=== PATIENT | female | born 1940 | race Caucasian/White ===

== ENCOUNTER 2017-12-10 19:52 | Inpatient (IN) | payer MEDICARE ==
[2017-12-10] MEDS ORDERED: SODIUM CHLORIDE 0.9% 1,000 ML IV STA (20:02)
[2017-12-10] MEDS ORDERED: IPRATROPIUM-ALBUTEROL 3 ML NEB INHALATION STA (20:02)
[2017-12-10] MEDS ORDERED: LORazepam 2 MG/ML INJ IV STA (20:02)
--- NOTE | 2017-12-10 20:07 | ED ---
General Adult HPI - General Chief complaint: Shortness of Breath Stated complaint: SOB Time Seen by Provider: 12/10/17 19:58 Source: patient, family, EMS, RN notes reviewed, old records reviewed Mode of arrival: EMS Limitations: no limitations - History of Present Illness Initial comments: This is a 76-year-old female the ER for evaluation poor historian and history is obtained from caregiver, patient has a complex recent medical history clear multiple hospitalizations for everything from pneumonia alcohol withdrawal. Patient having persistent significant shortness of breath per family and therefore 18 brought in for evaluation, she has no history of pleural effusion with no treatment at this time - Related Data Home Medications Medication Instructions Recorded Confirmed Azithromycin [Zithromax Z-pack] See Taper PO DAILY 12/11/17 12/11/17 Fludrocortisone [Florinef] 0.1 mg PO DAILY 12/11/17 12/11/17 Furosemide [Lasix] 20 mg PO DAILY 12/11/17 12/11/17 Ipratropium-Albuterol Nebulize 3 ml INHALATION RT-QID PRN 12/11/17 12/11/17 [Duoneb 0.5 mg-3 mg/3 ml Soln] Levothyroxine Sodium [Synthroid] 88 mcg PO DAILY 12/11/17 12/11/17 Magnesium Oxide [Mag-Ox] 400 mg PO DAILY 12/11/17 12/11/17 Metoprolol Succinate [Toprol Xl] 50 mg PO DAILY 12/11/17 12/11/17 Pantoprazole [Protonix] 40 mg PO DAILY 12/11/17 12/11/17 Potassium Chloride [K-Tab ER] 10 meq PO DAILY 12/11/17 12/11/17 Allergies Allergy/AdvReac Type Severity Reaction Status Date / Time No Known Allergies Allergy Verified 12/11/17 11:31 Review of Systems ROS Statement: Those systems with pertinent positive or pertinent negative responses have been documented in the HPI. ROS Other: All systems not noted in ROS Statement are negative. Past Medical History Past Medical History: Thyroid Disorder Additional Past Medical History / Comment(s): gastric ulcer, anxiety History of Any Multi-Drug Resistant Organisms: None Reported Past Surgical History: Tonsillectomy, Tubal Ligation Past Psychological History: Anxiety, Depression Smoking Status: Former smoker Past Alcohol Use History: Occasional Past Drug Use History: None Reported - Past Family History Sister(s) Family Medical History: Thyroid Disorder General Exam Limitations: no limitations Course Vital Signs 12/10/17 12/10/17 12/10/17 19:53 20:02 20:22 Temperature 98.3 F Pulse Rate 83 86 Pulse Rate [ Right Pulse Oximetery] Respiratory 22 22 Rate Blood Pressure 146/68 Blood Pressure [Right Arm Supine] O2 Sat by Pulse 92 L Oximetry 12/10/17 12/10/17 12/10/17 20:34 21:39 22:00 Temperature Pulse Rate 93 67 55 L Pulse Rate [ Right Pulse Oximetery] Respiratory 18 20 Rate Blood Pressure 130/72 153/75 Blood Pressure [Right Arm Supine] O2 Sat by Pulse 97 96 Oximetry 12/10/17 12/11/17 12/11/17 23:00 00:06 00:30 Temperature 98.2 F Pulse Rate 78 67 Pulse Rate [ 86 Right Pulse Oximetery] Respiratory 18 20 21 Rate Blood Pressure 138/68 147/72 Blood Pressure 148/70 [Right Arm Supine] O2 Sat by Pulse 97 97 98 Oximetry 12/11/17 00:40 Temperature Pulse Rate Pulse Rate [ 86 Right Pulse Oximetery] Respiratory 21 Rate Blood Pressure Blood Pressure [Right Arm Supine] O2 Sat by Pulse Oximetry - Reevaluation(s) Reevaluation #1: Medical records thoroughly reviewed Patient is placed on electrolyte replacement Patient has bilateral large pleural effusion EKG Findings - EKG Comments: EKG Findings:: EKG shows sinus rhythm rate of 85, RI 144, QRS 60, QTc 497 Medical Decision Making - Medical Decision Making 76 female the ER for evaluation patient known facility, patient presenting for shortness of breath and low oxygen. Patient does have persistent difficulty breathing, is improved with breathing and will need pulmonary evaluation. Patient also significant L O'Josemanuel's and will be admitted for electronically replacement - Lab Data Result diagrams: 12/11/17 08:57 12/11/17 08:57 Lab Results 12/10/17 12/10/17 12/10/17 Range/Units 19:55 19:55 19:55 WBC 9.1 (3.8-10.6) k/uL RBC 3.06 L (3.80-5.40) m/uL Hgb 9.5 L (11.4-16.0) gm/dL Hct 30.1 L (34.0-46.0) % MCV 98.4 (80.0-100.0) fL MCH 31.0 (25.0-35.0) pg MCHC 31.5 (31.0-37.0) g/dL RDW 14.2 (11.5-15.5) % Plt Count 207 (150-450) k/uL Neutrophils % 66 % Lymphocytes % 20 % Monocytes % 9 % Eosinophils % 3 % Basophils % 0 % Neutrophils # 6.0 (1.3-7.7) k/uL Lymphocytes # 1.8 (1.0-4.8) k/uL Monocytes # 0.8 (0-1.0) k/uL Eosinophils # 0.3 (0-0.7) k/uL Basophils # 0.0 (0-0.2) k/uL Hypochromasia PT (9.0-12.0) sec INR (<1.2) APTT (22.0-30.0) sec D-Dimer (<0.60) mg/L FEU Sodium 141 (137-145) mmol/L Potassium 3.4 L (3.5-5.1) mmol/L Chloride 104 (98-107) mmol/L Carbon Dioxide 32 H (22-30) mmol/L Anion Gap 5 mmol/L BUN 14 (7-17) mg/dL Creatinine 0.61 (0.52-1.04) mg/dL Est GFR (CKD-EPI)AfAm >90 (>60 ml/min/1.73 sqM) Est GFR (CKD-EPI)NonAf 88 (>60 ml/min/1.73 sqM) Glucose 93 (74-99) mg/dL Calcium 8.7 (8.4-10.2) mg/dL Magnesium 1.1 L (1.6-2.3) mg/dL Total Bilirubin 0.5 (0.2-1.3) mg/dL AST 22 (14-36) U/L ALT 22 (9-52) U/L Alkaline Phosphatase 74 (38-126) U/L Total Creatine Kinase 31 (30-135) U/L CK-MB (CK-2) 0.9 (0.0-2.4) ng/mL CK-MB (CK-2) Rel Index 2.9 Troponin I 0.061 H* (0.000-0.034) ng/mL NT-Pro-B Natriuret Pep pg/mL Total Protein 6.1 L (6.3-8.2) g/dL Albumin 2.9 L (3.5-5.0) g/dL Triglycerides (<150) mg/dL Cholesterol (<200) mg/dL LDL Cholesterol, Calc (0-99) mg/dL HDL Cholesterol (40-60) mg/dL C. difficile (EIA) Intrp (Negative) 12/10/17 12/10/17 12/10/17 Range/Units 19:55 19:55 19:55 WBC (3.8-10.6) k/uL RBC (3.80-5.40) m/uL Hgb (11.4-16.0) gm/dL Hct (34.0-46.0) % MCV (80.0-100.0) fL MCH (25.0-35.0) pg MCHC (31.0-37.0) g/dL RDW (11.5-15.5) % Plt Count (150-450) k/uL Neutrophils % % Lymphocytes % % Monocytes % % Eosinophils % % Basophils % % Neutrophils # (1.3-7.7) k/uL Lymphocytes # (1.0-4.8) k/uL Monocytes # (0-1.0) k/uL Eosinophils # (0-0.7) k/uL Basophils # (0-0.2) k/uL Hypochromasia PT 11.5 (9.0-12.0) sec INR 1.2 H (<1.2) APTT 24.6 (22.0-30.0) sec D-Dimer 1.70 H (<0.60) mg/L FEU Sodium (137-145) mmol/L Potassium (3.5-5.1) mmol/L Chloride (98-107) mmol/L Carbon Dioxide (22-30) mmol/L Anion Gap mmol/L BUN (7-17) mg/dL Creatinine (0.52-1.04) mg/dL Est GFR (CKD-EPI)AfAm (>60 ml/min/1.73 sqM) Est GFR (CKD-EPI)NonAf (>60 ml/min/1.73 sqM) Glucose (74-99) mg/dL Calcium (8.4-10.2) mg/dL Magnesium (1.6-2.3) mg/dL Total Bilirubin (0.2-1.3) mg/dL AST (14-36) U/L ALT (9-52) U/L Alkaline Phosphatase (38-126) U/L Total Creatine Kinase (30-135) U/L CK-MB (CK-2) (0.0-2.4) ng/mL CK-MB (CK-2) Rel Index Troponin I (0.000-0.034) ng/mL NT-Pro-B Natriuret Pep 4800 pg/mL Total Protein (6.3-8.2) g/dL Albumin (3.5-5.0) g/dL Triglycerides (<150) mg/dL Cholesterol (<200) mg/dL LDL Cholesterol, Calc (0-99) mg/dL HDL Cholesterol (40-60) mg/dL C. difficile (EIA) Intrp (Negative) 12/11/17 12/11/17 12/11/17 Range/Units 01:52 08:21 08:57 WBC (3.8-10.6) k/uL RBC (3.80-5.40) m/uL Hgb (11.4-16.0) gm/dL Hct (34.0-46.0) % MCV (80.0-100.0) fL MCH (25.0-35.0) pg MCHC (31.0-37.0) g/dL RDW (11.5-15.5) % Plt Count (150-450) k/uL Neutrophils % % Lymphocytes % % Monocytes % % Eosinophils % % Basophils % % Neutrophils # (1.3-7.7) k/uL Lymphocytes # (1.0-4.8) k/uL Monocytes # (0-1.0) k/uL Eosinophils # (0-0.7) k/uL Basophils # (0-0.2) k/uL Hypochromasia PT (9.0-12.0) sec INR (<1.2) APTT (22.0-30.0) sec D-Dimer (<0.60) mg/L FEU Sodium 140 (137-145) mmol/L Potassium 4.6 (3.5-5.1) mmol/L Chloride 105 (98-107) mmol/L Carbon Dioxide 30 (22-30) mmol/L Anion Gap 5 mmol/L BUN 13 (7-17) mg/dL Creatinine 0.59 (0.52-1.04) mg/dL Est GFR (CKD-EPI)AfAm >90 (>60 ml/min/1.73 sqM) Est GFR (CKD-EPI)NonAf 89 (>60 ml/min/1.73 sqM) Glucose 87 (74-99) mg/dL Calcium 8.7 (8.4-10.2) mg/dL Magnesium (1.6-2.3) mg/dL Total Bilirubin (0.2-1.3) mg/dL AST (14-36) U/L ALT (9-52) U/L Alkaline Phosphatase (38-126) U/L Total Creatine Kinase 32 30 (30-135) U/L CK-MB (CK-2) 1.1 0.9 (0.0-2.4) ng/mL CK-MB (CK-2) Rel Index 3.4 3.0 Troponin I 0.063 H* 0.073 H* (0.000-0.034) ng/mL NT-Pro-B Natriuret Pep pg/mL Total Protein (6.3-8.2) g/dL Albumin (3.5-5.0) g/dL Triglycerides 67 (<150) mg/dL Cholesterol 148 (<200) mg/dL LDL Cholesterol, Calc 76 (0-99) mg/dL HDL Cholesterol 59 (40-60) mg/dL C. difficile (EIA) Intrp (Negative) 12/11/17 12/11/17 Range/Units 08:57 09:02 WBC 9.0 (3.8-10.6) k/uL RBC 3.04 L (3.80-5.40) m/uL Hgb 9.8 L (11.4-16.0) gm/dL Hct 30.2 L (34.0-46.0) % MCV 99.3 (80.0-100.0) fL MCH 32.2 (25.0-35.0) pg MCHC 32.4 (31.0-37.0) g/dL RDW 14.3 (11.5-15.5) % Plt Count 236 (150-450) k/uL Neutrophils % 65 % Lymphocytes % 20 % Monocytes % 10 % Eosinophils % 4 % Basophils % 0 % Neutrophils # 5.8 (1.3-7.7) k/uL Lymphocytes # 1.8 (1.0-4.8) k/uL Monocytes # 0.9 (0-1.0) k/uL Eosinophils # 0.4 (0-0.7) k/uL Basophils # 0.0 (0-0.2) k/uL Hypochromasia Slight PT (9.0-12.0) sec INR (<1.2) APTT (22.0-30.0) sec D-Dimer (<0.60) mg/L FEU Sodium (137-145) mmol/L Potassium (3.5-5.1) mmol/L Chloride (98-107) mmol/L Carbon Dioxide (22-30) mmol/L Anion Gap mmol/L BUN (7-17) mg/dL Creatinine (0.52-1.04) mg/dL Est GFR (CKD-EPI)AfAm (>60 ml/min/1.73 sqM) Est GFR (CKD-EPI)NonAf (>60 ml/min/1.73 sqM) Glucose (74-99) mg/dL Calcium (8.4-10.2) mg/dL Magnesium (1.6-2.3) mg/dL Total Bilirubin (0.2-1.3) mg/dL AST (14-36) U/L ALT (9-52) U/L Alkaline Phosphatase (38-126) U/L Total Creatine Kinase (30-135) U/L CK-MB (CK-2) (0.0-2.4) ng/mL CK-MB (CK-2) Rel Index Troponin I (0.000-0.034) ng/mL NT-Pro-B Natriuret Pep pg/mL Total Protein (6.3-8.2) g/dL Albumin (3.5-5.0) g/dL Triglycerides (<150) mg/dL Cholesterol (<200) mg/dL LDL Cholesterol, Calc (0-99) mg/dL HDL Cholesterol (40-60) mg/dL C. difficile (EIA) Intrp Negative (Negative) - Radiology Data Radiology results: report reviewed (Chest x-ray shows bilateral pleural effusions, CT chest is negative for PE), image reviewed Critical Care Time Critical Care Time: Yes Total Critical Care Time: 31 Disposition Clinical Impression: Acute exacerbation of chronic obstructive airways disease, Bilateral pleural effusion, Weakness, Hypokalemia, Hypomagnesemia, Elevated troponin Disposition: ADMITTED IP TO THIS [facility] Condition: Good Is patient prescribed a controlled substance at d/c from ED?: No
[2017-12-10 20:44] LABS: Basophils % (A) 0 %; Eosinophils # (A) 0.3 k/uL (0-0.7); Eosinophils % (A) 3 %; HCT 30.1 % (34.0-46.0); HGB 9.5 gm/dL (11.4-16.0); Lymphocytes # (A) 1.8 k/uL (1.0-4.8); Lymphocytes % (A) 20 %; MCHC 31.5 g/dL (31.0-37.0); MCV 98.4 fL (80.0-100.0); Mean Platelet Volume 9.5; Monocytes # (A) 0.8 k/uL (0-1.0); Monocytes % (A) 9 %; Neutrophils % (A) 66 %; Platelet Count 207 k/uL (150-450); RBC 3.06 m/uL (3.80-5.40); RDW 14.2 % (11.5-15.5); WBC 9.1 k/uL (3.8-10.6)
[2017-12-10 20:52] LABS: Sodium 141 mmol/L (137-145)
[2017-12-10 20:54] LABS: ALT 22 U/L (9-52); AST 22 U/L (14-36); Albumin 2.9 g/dL (3.5-5.0); Alkaline Phosphatase 74 U/L (38-126); Anion Gap 5 mmol/L; Blood Urea Nitrogen 14 mg/dL (7-17); Calcium 8.7 mg/dL (8.4-10.2); Carbon Dioxide 32 mmol/L (22-30); Chloride 104 mmol/L (98-107); Glucose 93 mg/dL (74-99); INR 1.2 (<1.2); Magnesium 1.1 mg/dL (1.6-2.3); Partial Thromboplastin Time 24.6 sec (22.0-30.0); Potassium 3.4 mmol/L (3.5-5.1); Prothrombin Time 11.5 sec (9.0-12.0); Total Bilirubin 0.5 mg/dL (0.2-1.3); Total Protein 6.1 g/dL (6.3-8.2)
[2017-12-10 21:11] LABS: Creatine Kinase MB 0.9 ng/mL (0.0-2.4)
[2017-12-10 21:20] LABS: Troponin I 0.061 ng/mL (0.000-0.034)
[2017-12-10] MEDS ORDERED: MAGNESIUM OXIDE 400 MG TAB PO STA (21:20)
[2017-12-10] MEDS ORDERED: POTASSIUM BICARBONATE/CIT AC 20 MEQ TABLET.EFF PO ONE (21:20)
[2017-12-10] MEDS: POTASSIUM CHLORIDE 20 MEQ in WATER FOR INJECTION 1 100ML.BAG IVPB SCH (21:57)
[2017-12-10] MEDS: MAGNESIUM SULFATE-D5W PMX 1 GM in DEXTROSE/WATER 1 100ML.BAG IVPB SCH ×2 (21:58→23:15)
--- NOTE | 2017-12-10 22:04 | XR ---
EXAMINATION TYPE: XR chest 2V DATE OF EXAM: 12/10/2017 COMPARISON: None INDICATION: Difficulty breathing TECHNIQUE: Frontal and lateral views of the chest are obtained. FINDINGS: The heart size is enlarged. The pulmonary vasculature is normal. Small bilateral pleural effusions are present.. IMPRESSION: 1. Small bilateral pleural effusions
--- NOTE | 2017-12-10 23:30 | CT ---
EXAMINATION TYPE: CT angio chest DATE OF EXAM: 12/10/2017 10:30 PM COMPARISON: HISTORY: No prior ,SOB, Elevated d-dimer, R/O PE CT DLP: 183.70 mGycm Automated exposure control for dose reduction was used. CONTRAST: CTA scan of the thorax is performed with IV Contrast, patient injected with 65 mL of Isovue 370, pulm onary embolism protocol. There are 3-D post processed images.. FINDINGS: There are large bilateral pleural effusions. There is infiltrate and atelectasis in the lower lung fi elds. There is significant atelectasis of the lower lobes. I see no filling defects in the pulmonary arteries. Thoracic aorta is atheromatous. I see no aneurysm or dissection. Ascending aorta measures 3.2 cm. There is no pericardial effusion. There is spurring in the thoracic spine. There is anterior wedging of T12 and L1 vertebra with 15% loss of height. This appears old. There are mediastinal multiple lymph nodes that measure up to 1.5 cm. IMPRESSION: NO EVIDENCE OF PULMONARY EMBOLISM. LARGE PLEURAL EFFUSIONS WITH BASILAR PULMONARY ATELECTASIS AND INF ILTRATE. THERE IS MOSTLY ATELECTASIS. NONSPECIFIC MEDIASTINAL ADENOPATHY.
[2017-12-10] MEDS ORDERED: NITROGLYCERIN SL TABS 0.4 MG TAB SUBLINGUAL PRN (23:58)
[2017-12-11] MEDS: POTASSIUM CHLORIDE 20 MEQ in WATER FOR INJECTION 1 100ML.BAG IVPB SCH (00:15)
[2017-12-11] MEDS: MAGNESIUM SULFATE-D5W PMX 1 GM in DEXTROSE/WATER 1 100ML.BAG IVPB SCH ×2 (00:18→08:11)
[2017-12-11 02:47] LABS: Creatine Kinase MB 1.1 ng/mL (0.0-2.4)
[2017-12-11 03:28] LABS: Troponin I 0.063 ng/mL (0.000-0.034)
[2017-12-11] MEDS: SODIUM CHLORIDE 0.9% 1,000 ML IV SCH (06:08)
[2017-12-11] MEDS: ENOXAPARIN 40 MG/0.4 ML SYRINGE SQ SCH (08:11)
[2017-12-11] MEDS: IPRATROPIUM-ALBUTEROL 3 ML NEB INHALATION SCH ×4 (08:28→21:20)
[2017-12-11 09:30] LABS: Anion Gap 5 mmol/L; Basophils % (A) 0 %; Blood Urea Nitrogen 13 mg/dL (7-17); Calcium 8.7 mg/dL (8.4-10.2); Carbon Dioxide 30 mmol/L (22-30); Chloride 105 mmol/L (98-107); Cholesterol 148 mg/dL (<200); Eosinophils # (A) 0.4 k/uL (0-0.7); Eosinophils % (A) 4 %; Glucose 87 mg/dL (74-99); HCT 30.2 % (34.0-46.0); HDL Cholesterol 59 mg/dL (40-60); HGB 9.8 gm/dL (11.4-16.0); Hypochromasia Slight; LDL Cholesterol,Calculated 76 mg/dL (0-99); Lymphocytes # (A) 1.8 k/uL (1.0-4.8); Lymphocytes % (A) 20 %; MCH 32.2 pg (25.0-35.0); MCHC 32.4 g/dL (31.0-37.0); MCV 99.3 fL (80.0-100.0); Mean Platelet Volume 9.3; Monocytes # (A) 0.9 k/uL (0-1.0); Monocytes % (A) 10 %; Neutrophils # (A) 5.8 k/uL (1.3-7.7); Neutrophils % (A) 65 %; Platelet Count 236 k/uL (150-450); Potassium 4.6 mmol/L (3.5-5.1); RBC 3.04 m/uL (3.80-5.40); RDW 14.3 % (11.5-15.5); Sodium 140 mmol/L (137-145); Triglycerides 67 mg/dL (<150)
[2017-12-11 09:52] LABS: Creatine Kinase MB 0.9 ng/mL (0.0-2.4)
[2017-12-11 09:56] LABS: Troponin I 0.073 ng/mL (0.000-0.034)
--- NOTE | 2017-12-11 10:44 | US ---
EXAMINATION TYPE: US chest DATE OF EXAM: 12/11/2017 COMPARISON: CT CLINICAL HISTORY: bilateral pleural effusions; pneumonia per patient TECHNIQUE: Targeted ultrasound of the posterior lower bilateral hemithoraces EXAM MEASUREMENTS: Right Pleural Effusion pocket size: 9.0 cm A/P with internal lung tissue noted, and 6.1cm A/P withou t lung tissue noted within fluid Right skin surface to fluid distance: 2.2 cm A/P Left Pleural Effusion pocket size: 6.3 cm A/P with internal lung tissue noted, and 7.5cm A/P without lung tissue Left skin surface to fluid distance: 2.6 cm A/P Right side was marked for possible thoracentesis outside the dept. Left side was marked for possible thoracentesis outside the dept. Pulmonologists are able to review the images in the patient?s EMR. IMPRESSIONS: Bilateral pleural effusions.
--- NOTE | 2017-12-11 11:38 | P.CNPUL ---
History of Present Illness Consult date: 12/11/17 Reason for consult: dyspnea, cough Chief complaint: Shortness of breath, cough and sputum production. History of present illness: This is 76-year-old white female patient who resides in [place], and recently moved to [place] to be closer to her children. Patient had a extended hospital stay in [place] this summer, she states between the hospitalization and the rehab she was or a month and a half for pneumonia. Patient was complaining of ongoing shortness of breath, cough, yellowish sputum. She noted increasing swelling in her bilateral lower extremities. She presented to the hospital for further evaluation, chest x-ray showed small bilateral pleural effusions and 2017, her d-dimer was 1.7, CT angios was obtained which showed no PE, but showed large bilateral pleural effusions and adjacent atelectasis. Patient is hypoxemic, she is on liters per nasal cannula, with pulse ox of 93%, she is afebrile, she is short of breath at rest. She denies any prior history of congestive heart failure, he has never seen a lung specialist in the past. But she does have extensive past smoking history, she used to smoked up to 3 packs a day for 30 years, but she quit 37 years ago. Not wear oxygen. She doesn't have any inhalers of breathing treatments. No leukocytosis on the lab work, WBCs 9.1, hemoglobin is 9.5, sodium is 141, potassium is 3.4, Court is 104 CO2 is 32, renal profile is within normal limits. BNP was 4800, and 3 sets of troponins were 0.061, 0.063, and 0.073. EKG showed normal sinus rhythm, with evidence of the anterior infarct of undetermined age. We were asked to see the patient in evaluation of the large plural effusions bilaterally. Review of Systems All systems: negative Constitutional: Denies chills, Denies fever Eyes: denies blurred vision, denies pain Ears, nose, mouth and throat: Denies headache, Denies sore throat Cardiovascular: Reports dyspnea on exertion, Reports edema, Reports leg edema, Reports orthopnea, Denies chest pain, Denies shortness of breath Respiratory: Reports cough with sputum, Reports dyspnea, Denies cough Gastrointestinal: Denies abdominal pain, Denies diarrhea, Denies nausea, Denies vomiting Genitourinary: Denies dysuria, Denies hematuria Musculoskeletal: Denies myalgias Integumentary: Denies pruritus, Denies rash Neurological: Denies numbness, Denies weakness Psychiatric: Denies anxiety, Denies depression Endocrine: Denies fatigue, Denies weight change Past Medical History Past Medical History: Dementia, Hypertension, Thyroid Disorder Additional Past Medical History / Comment(s): gastric/esophageal ulcer, anxiety History of Any Multi-Drug Resistant Organisms: VRE Date of last positivie culture/infection: 10/26/2017 MDRO Source:: urine Past Surgical History: Tonsillectomy, Tubal Ligation Past Anesthesia/Blood Transfusion Reactions: No Reported Reaction Past Psychological History: Anxiety, Depression Additional Psychological History / Comment(s): per pts. daughters pt. drank heavily for 15 years and recently quit drinking about a month ago and went through detox Smoking Status: Former smoker Past Alcohol Use History: Occasional Past Drug Use History: None Reported - Past Family History Sister(s) Family Medical History: Thyroid Disorder Medications and Allergies Home Medications Medication Instructions Recorded Confirmed Type Azithromycin 250 mg PO DAILY 12/11/17 12/11/17 History Furosemide [Lasix] 20 mg PO DAILY 12/11/17 12/11/17 History Pantoprazole [Protonix] 40 mg PO DAILY 12/11/17 12/11/17 History Potassium Chloride [K-Tab ER] 10 meq PO DAILY 12/11/17 12/11/17 History Allergies Allergy/AdvReac Type Severity Reaction Status Date / Time No Known Allergies Allergy Verified 12/10/17 20:00 Physical Exam Vitals: Vital Signs Temp Pulse Pulse Resp BP BP Pulse Ox 12/11/17 08:39 94 18 12/11/17 08:28 92 18 12/11/17 08:00 96.8 F L 82 18 151/99 93 L 12/11/17 04:10 98.5 F 79 21 154/71 100 12/11/17 00:40 86 21 12/11/17 00:30 98.2 F 86 21 148/70 98 12/11/17 00:06 67 20 147/72 97 12/10/17 23:00 78 18 138/68 97 12/10/17 22:00 55 L 20 153/75 96 12/10/17 21:39 67 18 130/72 97 12/10/17 20:34 93 12/10/17 20:22 86 12/10/17 20:02 22 12/10/17 19:53 98.3 F 83 22 146/68 92 L Intake and Output 12/10/17 12/11/17 12/11/17 22:59 06:59 14:59 Intake Total 310 118 Balance 310 118 Intake: Intake, IV Titration 310 Amount Magnesium Sulfate-D5w Pmx 100 1 gm In Dextrose/Water 1 100ml.bag @ 100 mls/hr IVPB Q1H [facility] Rx#: [id number] Potassium Chloride 20 meq 100 In Water For Injection 1 100ml.bag @ 50 mls/hr IVPB Q2HR [facility]ITA Rx#: [id number] Sodium Chloride 0.9% 1, 110 000 ml @ 20 mls/hr IV . Q24H ROSITA Rx#:[id number] Oral 118 Other: Voiding Method Toilet Toilet # Voids 3 # Bowel Movements 2 Weight 58.287 kg 55.2 kg GENERAL EXAM: Alert, pleasant, 76-year-old white female, mildly short of breath with conversation, but in no apparent distress. 4 L per nasal cannula HEAD: Normocephalic/atraumatic. EYES: Normal reaction of pupils, equal size. Conjunctiva pink, sclera white. NOSE: Clear with pink turbinates. THROAT: No erythema or exudates. NECK: No masses, no JVD, no thyroid enlargement, no adenopathy. CHEST: No chest wall deformity. Symmetrical expansion. LUNGS: Diminished breath sounds and lateral basis, with limited crackles and there was dullness to percussion CVS: Regular rate and rhythm, normal S1 and S2, no gallops, no murmurs, no rubs ABDOMEN: Soft, nontender. No hepatosplenomegaly, normal bowel sounds, no guarding or rigidity. EXTREMITIES: No clubbing, no cyanosis, 2+ pulses and upper and lower extremities. 1+ bilateral lower extremity edema MUSCULOSKELETAL: Muscle strength and tone normal. SPINE: No scoliosis or deformity SKIN: No rashes CENTRAL NERVOUS SYSTEM: Alert and oriented -3. No focal deficits, tone is normal in all 4 extremities. PSYCHIATRIC: Alert and oriented -3. Appropriate affect. Intact judgment and insight. Results - Laboratory Findings CBC and BMP: 12/11/17 08:57 12/11/17 08:57 PT/INR, D-dimer PT 11.5 sec (9.0-12.0) 12/10/17 19:55 INR 1.2 (<1.2) H 12/10/17 19:55 D-Dimer 1.70 mg/L FEU (<0.60) H 12/10/17 19:55 Abnormal lab findings: Abnormal Labs 12/10/17 12/10/17 12/10/17 19:55 19:55 19:55 RBC 3.06 L Hgb 9.5 L Hct 30.1 L INR D-Dimer Potassium 3.4 L Carbon Dioxide 32 H Magnesium 1.1 L Troponin I 0.061 H* Total Protein 6.1 L Albumin 2.9 L 12/10/17 12/10/17 12/11/17 19:55 19:55 01:52 RBC Hgb Hct INR 1.2 H D-Dimer 1.70 H Potassium Carbon Dioxide Magnesium Troponin I 0.063 H* Total Protein Albumin 12/11/17 12/11/17 08:21 08:57 RBC 3.04 L Hgb 9.8 L Hct 30.2 L INR D-Dimer Potassium Carbon Dioxide Magnesium Troponin I 0.073 H* Total Protein Albumin - Diagnostic Findings Chest x-ray: report reviewed, image reviewed CT scan - chest: report reviewed, image reviewed Assessment and Plan Plan: Assessment: #1. Acute hypoxic respiratory failure secondary to acute exacerbation of congestive heart failure, suspect systolic dysfunction #2. Large bilateral pleural effusions #3. Elevated troponins #4. Elevated d-dimer, CT angios negative for pulmonary embolism #5. Recent extended hospitalization in a [place] hospital for pneumonia #6. Suspect COPD #7. History of nicotine dependence, currently in remission, quit smoking 37 years ago, smoked for 30 years up to 3 packs a day. #8. Generalized weakness #9. Hypokalemia, hypomagnesemia Plan: We'll obtain ultrasound of the chest, we'll start patient on diuretics and Lasix 40 mg every 8 hours. Chest x-ray in the morning, 2-D echocardiogram. Cardiology consultation. Continue nebulized bronchodilators,add Symbicort. Accurate I&O's, daily weights. Replace serum potassium and serum magnesium per protocol. I performed a history & physical examination of the patient and discussed their management with my nurse practitioner, Ignacia Fountain. I reviewed the nurse practitioner's note and agree with the documented findings and plan of care. Lung sounds are positive for diminished breath sounds, and crackles at the bases. The findings and the impression was discussed with the patient. I attest to the documentation by the nurse practitioner. Time with Patient: Greater than 30
--- NOTE | 2017-12-11 12:43 | CONS ---
EDGARD Mendiola is a 76-year-old lady with history of hypertension who has been becoming progressively short of breath and developed leg edema for the last 3 weeks. She was started on Lasix in the outpatient setting and also received antibiotics without any improvement in her symptoms. Her symptoms were moderate to severe intensity and have become progressively worse. There were no clear-cut relieving or exacerbating factors. Lasix has improved her leg swelling. She came to the emergency room with these symptoms. Her initial lab workup showed that the D-dimer was elevated, following which she had a CT scan of the chest that was negative for pulmonary embolism. She had a BNP that was elevated at 4800. Troponins are in the guzman zone at 0.06, 0.[address] scan also showed bilateral pleural effusions more on the right than on the left. PAST MEDICAL HISTORY: Significant for hypertension. There is no history of coronary artery disease, congestive heart failure or valvular heart disease. There is no history of COPD and she denies any smoking. MEDICATIONS: At home included: 1. K-Dur 10 mEq daily. 2. Protonix 40 mEq daily. 3. Lasix 40 mg daily. 4. Lasix 20 mg daily. ALLERGIES: There are no known drug allergies. FAMILY HISTORY: Negative for premature coronary artery disease. SOCIAL HISTORY: Negative for current smoking, EtOH abuse, or drug abuse. REVIEW OF SYSTEMS: HEENT is unremarkable. Cardiac as described above. Respiratory as described above. GI negative. Genitourinary negative. Allergy/Immunology: Negative. Skin negative. Musculoskeletal significant for arthritis. Psychosocial negative. ENDOCRINE: Negative. DERM: Negative. Constitutional negative. Oncological negative. Rest of the system review is not relevant. EXAM: Patient is afebrile. Heart rate is 80 beats per minute. Blood pressure is 150/90, respiratory rate is 18, O2 sat is 93% on 4 L. There is no jugular venous distention. Carotid upstroke is normal. There is no bruit. Chest exam reveals diminished air entry at the bases. Heart exam reveals first and second heart sounds. No gallop. No murmur. Abdomen is soft, nontender. Exam of extremities reveals mild bilateral ankle edema. ASSESSMENT: 1. Acute onset congestive heart failure of undetermined LV function. 2. History of hypertension. PLAN: I am going to treat the patient with IV Lasix, Toprol-XL 50 mg daily, lisinopril 5 mg daily, obtain an echocardiogram to assess LV function and wall motion. The patient has mild elevation in troponin. The exact clinical significance of which is unclear. I am going to, once the patient improves clinically, she may need a Lexiscan to assess for ischemia and if she has ischemia, may need a cardiac catheterization. SANTIAGO / EBONY: [id number] /
[2017-12-11] MEDS: METOPROLOL SUCCINATE (ER) 50 MG TAB.ER.24H PO SCH (13:04)
[2017-12-11] MEDS: LISINOPRIL 5 MG TAB PO SCH (13:04)
[2017-12-11] MEDS: PANTOPRAZOLE 40 MG TABLET PO SCH (13:04)
[2017-12-11] MEDS: FUROSEMIDE 10 MG/ML 4 ML VIAL IV SCH ×2 (13:04→16:06)
[2017-12-11] MEDS: POTASSIUM CHLORIDE ER 10 MEQ TAB.ER.PRT PO SCH (13:04)
--- NOTE | 2017-12-11 15:10 | P.HPIM ---
History of Present Illness H&P Date: 12/11/17 Chief Complaint: Shortness of breath for 1-2 weeks Mrs. Foster is a 76-year-old female with a past medical history of hypertension , thyroid disorder, dementia coming to the hospital with a chief complaint of difficulty in breathing ongoing for 1-2 weeks. Patient was living in [place] and recently moved to [place] one week back. Patient is a poor historian so most of the history is obtained from her daughters were at the bedside. The patient was driven in a car last week from [place] to [place]. Patient was having difficulty in breathing and also increased swelling of her both lower extremities for the past 2 weeks. Patient was recently seen by Dr. High past week for the same complaints and she was started on Lasix and also azithromycin that she was taking. In spite of taking the medications the patient was still feeling short of breath and also stated the breathing treatments did not help her so came into the hospital for further evaluation. Patient denies having any fevers chills or rigors. She complains of cough with yellowish clear sputum. 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 Patient denies having any fevers chills or rigors. No abdominal pain nausea vomiting. Patient states the she has chronic diarrhea for the past 2 years. No complaints of dysuria or hematuria but states that she has urinary incontinence. Patient denies having any recent bleeding episodes. In the emergency department patient had a chest x-ray showing bilateral pleural effusion and as stated was elevated d-dimer she caught a CT and Lacey of the chest which was negative for PE but showed large bilateral pleural effusion with adjacent atelectasis. All 13 review of systems are done and negative except for the ones mentioned in HPI Review of Systems All systems: negative Constitutional: Denies chills, Denies fever Eyes: denies blurred vision, denies pain Ears, nose, mouth and throat: Denies headache, Denies sore throat Cardiovascular: As per HPI Respiratory: As per HPI Gastrointestinal: Denies abdominal pain, Denies nausea, Denies vomiting Genitourinary: Denies dysuria, Denies hematuria Musculoskeletal: Denies myalgias Integumentary: Denies pruritus, Denies rash Neurological: Denies numbness, Denies weakness Psychiatric: Denies anxiety, Denies depression Endocrine: Denies fatigue, Denies weight change Past Medical History Past Medical History: Dementia, Hypertension, Thyroid Disorder Additional Past Medical History / Comment(s): gastric/esophageal ulcer, anxiety History of Any Multi-Drug Resistant Organisms: VRE Date of last positivie culture/infection: 10/26/2017 MDRO Source:: urine Past Surgical History: Tonsillectomy, Tubal Ligation Past Anesthesia/Blood Transfusion Reactions: No Reported Reaction Past Psychological History: Anxiety, Depression Additional Psychological History / Comment(s): per pts. daughters pt. drank heavily for 15 years and recently quit drinking about a month ago and went through detox Smoking Status: Former smoker Past Alcohol Use History: Occasional Past Drug Use History: None Reported - Past Family History Sister(s) Family Medical History: Thyroid Disorder Medications and Allergies Home Medications Medication Instructions Recorded Confirmed Type Azithromycin [Zithromax Z-pack] See Taper PO DAILY 12/11/17 12/11/17 History Fludrocortisone [Florinef] 0.1 mg PO DAILY 12/11/17 12/11/17 History Furosemide [Lasix] 20 mg PO DAILY 12/11/17 12/11/17 History Ipratropium-Albuterol Nebulize 3 ml INHALATION RT-QID PRN 12/11/17 12/11/17 History [Duoneb 0.5 mg-3 mg/3 ml Soln] Levothyroxine Sodium [Synthroid] 88 mcg PO DAILY 12/11/17 12/11/17 History Magnesium Oxide [Mag-Ox] 400 mg PO DAILY 12/11/17 12/11/17 History Metoprolol Succinate [Toprol Xl] 50 mg PO DAILY 12/11/17 12/11/17 History Pantoprazole [Protonix] 40 mg PO DAILY 12/11/17 12/11/17 History Potassium Chloride [K-Tab ER] 10 meq PO DAILY 12/11/17 12/11/17 History Allergies Allergy/AdvReac Type Severity Reaction Status Date / Time No Known Allergies Allergy Verified 12/11/17 11:31 Physical Exam Vitals: Vital Signs Temp Pulse Pulse Resp BP BP Pulse Ox 12/11/17 13:22 90 18 12/11/17 13:11 92 18 12/11/17 08:39 94 18 12/11/17 08:28 92 18 12/11/17 08:00 96.8 F L 82 18 151/99 93 L 12/11/17 04:10 98.5 F 79 21 154/71 100 12/11/17 00:40 86 21 12/11/17 00:30 98.2 F 86 21 148/70 98 12/11/17 00:06 67 20 147/72 97 12/10/17 23:00 78 18 138/68 97 12/10/17 22:00 55 L 20 153/75 96 12/10/17 21:39 67 18 130/72 97 12/10/17 20:34 93 12/10/17 20:22 86 12/10/17 20:02 22 12/10/17 19:53 98.3 F 83 22 146/68 92 L Intake and Output 12/10/17 12/11/17 12/11/17 22:59 06:59 14:59 Intake Total 310 118 Balance 310 118 Intake: Intake, IV Titration 310 Amount Magnesium Sulfate-D5w Pmx 100 1 gm In Dextrose/Water 1 100ml.bag @ 100 mls/hr IVPB Q1H [facility] Rx#: [id number] Potassium Chloride 20 meq 100 In Water For Injection 1 100ml.bag @ 50 mls/hr IVPB Q2HR [facility] Rx#: [id number] Sodium Chloride 0.9% 1, 110 000 ml @ 20 mls/hr IV . Q24H [facility] Rx#:[id number] Oral 118 Other: Voiding Method Toilet Toilet # Voids 3 # Bowel Movements 2 5 Weight 58.287 kg 55.2 kg GENERAL EXAM GEN. APPEARANCE: alert, in no apparent distress HEAD EXAM: atraumatic, normocephalic, normal inspection EYE EXAM: No pallor, no icterus ENT EXAM: normal exam, mucous membranes moist NECK EXAM: normal inspection. Absent: tenderness, meningismus, full ROM, lymphadenopathy RESPIRATORY EXAM: Decreased breath sounds bilaterally up to the middle lobes. CARDIOVASCULAR EXAM: regular rate, normal rhythm, normal heart sounds. Absent : systolic murmur, diastolic murmur, rubs, gallop, clicks GI/ABDOMINAL EXAM: soft, normal bowel sounds. Absent: distended, tenderness, guarding, rebound, rigid EXTREMITIES EXAM: Bilateral pitting edema up to the mid robbins region NEUROLOGICAL EXAM: alert, oriented X3, no focal deficits on gross neurological exam PSYCHIATRIC EXAM: normal affect, normal mood SKIN EXAM: warm, dry, intact, normal color. Absent: rash Results CBC & Chem 7: 12/11/17 08:57 12/11/17 08:57 Labs: Abnormal Lab Results - Last 24 Hours (Table) 12/10/17 12/10/17 12/10/17 Range/Units 19:55 19:55 19:55 RBC 3.06 L (3.80-5.40) m/uL Hgb 9.5 L (11.4-16.0) gm/dL Hct 30.1 L (34.0-46.0) % INR (<1.2) D-Dimer (<0.60) mg/L FEU Potassium 3.4 L (3.5-5.1) mmol/L Carbon Dioxide 32 H (22-30) mmol/L Magnesium 1.1 L (1.6-2.3) mg/dL Troponin I 0.061 H* (0.000-0.034) ng/mL Total Protein 6.1 L (6.3-8.2) g/dL Albumin 2.9 L (3.5-5.0) g/dL 12/10/17 12/10/17 12/11/17 Range/Units 19:55 19:55 01:52 RBC (3.80-5.40) m/uL Hgb (11.4-16.0) gm/dL Hct (34.0-46.0) % INR 1.2 H (<1.2) D-Dimer 1.70 H (<0.60) mg/L FEU Potassium (3.5-5.1) mmol/L Carbon Dioxide (22-30) mmol/L Magnesium (1.6-2.3) mg/dL Troponin I 0.063 H* (0.000-0.034) ng/mL Total Protein (6.3-8.2) g/dL Albumin (3.5-5.0) g/dL 12/11/17 12/11/17 Range/Units 08:21 08:57 RBC 3.04 L (3.80-5.40) m/uL Hgb 9.8 L (11.4-16.0) gm/dL Hct 30.2 L (34.0-46.0) % INR (<1.2) D-Dimer (<0.60) mg/L FEU Potassium (3.5-5.1) mmol/L Carbon Dioxide (22-30) mmol/L Magnesium (1.6-2.3) mg/dL Troponin I 0.073 H* (0.000-0.034) ng/mL Total Protein (6.3-8.2) g/dL Albumin (3.5-5.0) g/dL Thrombosis Risk Factor Assmnt - Choose All That Apply Any of the Below Risk Factors Present?: Yes Each Factor Represents 1 point: Swollen legs (current) Other Risk Factors: Yes Each Risk Factor Represents 3 Points: Age 75 years or older Other congenital or acquired thrombophilia - If yes, enter type in comment: No Thrombosis Risk Factor Assessment Total Risk Factor Score: 4 Thrombosis Risk Factor Assessment Level: Moderate Risk Assessment and Plan Assessment: ASSESSMENT Acute hypoxic respiratory failure - secondary to bilateral pleural effusion Bilateral pleural effusion - unclear etiology- clinically no signs of pneumonia we'll get a 2-D echo to look for cardiac etiology Elevated troponins VRE infection recently in [place] Hypokalemia Hypomagnesemia Bilateral lower extremity edema Nicotine dependence quit 37 years back PLAN: Patient has been started on IV Lasix and has some relief with the lower extremity edema and difficulty in breathing. Scheduled to get an echocardiogram for tomorrow morning. Pulmonary and cardiology on board and following the patient. As the patient had urine cultures blood cultures are drawn at Dr. High's office will try to get the results tomorrow as the clinic is closed today. Patient has been restarted on her home medications. We 'll continue with the breathing treatments and rest of the current medication regimen. Further recommendations to follow depending on the progress of the patient.
[2017-12-11 16:48] LABS: Glucose,Whole Blood 95 mg/dL (75-99)
[2017-12-11] MEDS: SYMBICORT 160-4.5 MCG INHALER INHALATION SCH (21:20)
[2017-12-12] MEDS: FUROSEMIDE 10 MG/ML 4 ML VIAL IV SCH ×3 (00:09→16:00)
[2017-12-12] MEDS: SODIUM CHLORIDE 0.9% 1,000 ML IV SCH (06:39)
[2017-12-12] MEDS: PANTOPRAZOLE 40 MG TABLET PO SCH (07:00)
[2017-12-12] MEDS: IPRATROPIUM-ALBUTEROL 3 ML NEB INHALATION SCH ×4 (07:49→20:32)
[2017-12-12] MEDS: SYMBICORT 160-4.5 MCG INHALER INHALATION SCH ×2 (07:49→20:32)
[2017-12-12] MEDS: LISINOPRIL 5 MG TAB PO SCH (09:10)
[2017-12-12] MEDS: ENOXAPARIN 40 MG/0.4 ML SYRINGE SQ SCH (09:15)
[2017-12-12] MEDS: POTASSIUM CHLORIDE ER 10 MEQ TAB.ER.PRT PO SCH (09:15)
--- NOTE | 2017-12-12 10:05 | XR ---
EXAMINATION TYPE: XR chest 2V DATE OF EXAM: 12/12/2017 COMPARISON: Prior chest x-ray 12/10/2017 HISTORY: Congestive heart failure and shortness of breath TECHNIQUE: Frontal and lateral views of the chest are obtained. FINDINGS: Bibasilar increased densities present obscuring the hemidiaphragms. No evident pneumothora x. Heart size is obscured. There are overlying cardiac leads. IMPRESSION: Findings are similar to prior exam, correlate for congestive heart failure with bilatera l effusions, pneumonia not excluded.
--- NOTE | 2017-12-12 11:15 | P.PN ---
Subjective Progress Note Date: 12/12/17 This is a 76-year-old female who has known history of hypertension, hypothyroidism, anxiety, dementia, who resides in [place] and recently moved to [place]. Over the summer, patient apparently had an extended stay in the hospital there with pneumonia. She presents to the hospital on this occasion with symptoms of progressively worsening shortness of breath with associated cough and yellow sputum production. She was also noting some swelling in her bilateral lower extremities. Chest x-ray on arrival here revealed small bilateral pleural effusions. CAT scan of the chest did not reveal evidence of pulmonary embolism, large pleural effusions with basilar pulmonary atelectasis and infiltrate, mostly atelectasis, nonspecific mediastinal adenopathy noted. Ultrasound of the chest was performed which revealed bilateral pleural effusion , both sides were marked for possible thoracentesis. Repeat chest x-ray was performed this morning which continued to show bilateral pleural effusions and possible congestive heart failure, pneumonia not excluded. Her BNP level on admission was 4800. Patient was noted also to have mild abnormality in troponin , not consistent with acute coronary syndrome, likely secondary to supply and demand mismatch. At the time of my examination this morning, patient was quite ornary, she states that she is frustrated having to have so many chest x-rays and things done when she doesn't feel well. Patient had an echocardiogram with Doppler study performed this morning results are yet pending, but she states after the echo she became quite short of breath. Objective - Vital Signs Vital signs: Vital Signs Temp 97.5 F L 12/12/17 08:00 Pulse 88 12/12/17 08:04 Resp 16 12/12/17 08:00 BP 84/39 12/12/17 08:00 Pulse Ox 98 12/12/17 08:00 Intake & Output 12/11/17 12/12/17 12/12/17 18:59 06:59 18:59 Intake Total 358 240 Balance 358 240 Weight 53.6 kg Intake: Oral 358 240 Other: Voiding Method Toilet Toilet Toilet Diaper Diaper Incontinent Incontinent # Voids 2 # Bowel Movements 5 - Exam GENERAL EXAM: Alert, pleasant, 76-year-old white female, mildly short of breath with conversation, but in no apparent distress. 4 L per nasal cannula HEAD: Normocephalic/atraumatic. EYES: Normal reaction of pupils, equal size. Conjunctiva pink, sclera white. NOSE: Clear with pink turbinates. THROAT: No erythema or exudates. NECK: No masses, no JVD, no thyroid enlargement, no adenopathy. CHEST: No chest wall deformity. Symmetrical expansion. LUNGS: Diminished breath sounds and lateral basis, with limited crackles and there was dullness to percussion CVS: Regular rate and rhythm, normal S1 and S2, no gallops, no murmurs, no rubs ABDOMEN: Soft, nontender. No hepatosplenomegaly, normal bowel sounds, no guarding or rigidity. EXTREMITIES: No clubbing, no cyanosis, 2+ pulses and upper and lower extremities. 1+ bilateral lower extremity edema MUSCULOSKELETAL: Muscle strength and tone normal. SPINE: No scoliosis or deformity SKIN: No rashes CENTRAL NERVOUS SYSTEM: Alert and oriented -3. No focal deficits, tone is normal in all 4 extremities. PSYCHIATRIC: Alert and oriented -3. Appropriate affect. Intact judgment and insight. - Labs CBC & Chem 7: 12/11/17 08:57 12/11/17 08:57 Assessment and Plan Plan: Assessment: #1. Acute hypoxic respiratory failure secondary to acute exacerbation of congestive heart failure, suspect systolic dysfunction #2. Large bilateral pleural effusions, marked for possible thoracentesis #3. Elevated troponins, not consistent with acute coronary syndrome, likely secondary to supply and demand mismatch #4. Elevated d-dimer, CT angio negative for pulmonary embolism #5. Recent extended hospitalization in a [place] hospital for pneumonia #6. Suspect COPD with possible exacerbation #7. History of nicotine dependence, currently in remission, quit smoking 37 years ago, smoked for 30 years up to 3 packs a day. #8. Generalized weakness #9. Hypokalemia, hypomagnesemia Plan From cardiology's perspective, we will continue current dose of IV Lasix. We will also review the echocardiogram with Doppler study. Further recommendations to follow. DNP note has been reviewed, I agree with a documented findings and plan of care. Patient was seen and examined.
[2017-12-12 11:56] LABS: Anion Gap 6 mmol/L; Blood Urea Nitrogen 16 mg/dL (7-17); Calcium 8.4 mg/dL (8.4-10.2); Carbon Dioxide 31 mmol/L (22-30); Chloride 101 mmol/L (98-107); Glucose 99 mg/dL (74-99); Potassium 4.2 mmol/L (3.5-5.1); Sodium 138 mmol/L (137-145)
--- NOTE | 2017-12-12 12:05 | P.PN ---
Progress Note - Text Progress Note Date: 12/12/17 This is an addendum to the cardiology progress note dictated today. Patient had actually has diastolic congestive heart failure acute on chronic. DNP note has been reviewed, I agree with a documented findings and plan of care. Patient was seen and examined.
[2017-12-12] MEDS: METOPROLOL SUCCINATE (ER) 50 MG TAB.ER.24H PO SCH (12:18)
--- NOTE | 2017-12-12 13:08 | ECHOF ---
Referral Reason:CHF MEASUREMENTS -------- HEIGHT: 152.4 cm WEIGHT: 53.5 kg BP: IVSd: 1.2 cm (0.6 - 1.1) LVIDd: 3.3 cm (3.9 - 5.3) LVPWd: 1.3 cm (0.6 - 1.1) IVSs: 1.7 cm LVIDs: 1.3 cm LVPWs: 1.3 cm LAESV Index (A-L): 44.35 ml/m Ao Diam: 3.0 cm (2.0 - 3.7) AV Cusp: 1.8 cm (1.5 - 2.6) LA Diam: 4.0 cm (2.7 - 3.8) MV EXCURSION: 10.759 mm (> 18.000) MV EF SLOPE: 107 mm/s (70 - 150) EPSS: 0.2 cm MV E Zachary: 1.15 m/s MV DecT: 203 ms MV A Zachary: 0.48 m/s MV E/A Ratio: 2.37 RAP: 5.00 mmHg RVSP: 34.04 mmHg FINDINGS -------- This was a technically good study. The left ventricular size is normal. There is mild concentric left ventricular hypertrophy. Overa ll left ventricular systolic function is normal with, an EF between 55 - 60 %. The right ventricle is normal in size and function. LA is severely dilated >40 ml/m2 The right atrium is normal in size. Aortic valve is trileaflet and is mildly thickened. There is no evidence of aortic regurgitation. The mitral valve leaflets are mildly thickened. Moderate mitral regurgitation is present. Moderate tricuspid regurgitation present. The right ventricular systolic pressure, as measured by D larapler, is 34.04mmHg. There is no pulmonic regurgitation present. The aortic root size is normal. Normal inferior vena cava with normal inspiratory collapse consistent with estimated right atrial pre ssure of 5 mmHg. There is a small, generalized pericardial effusion present. Large Pleural Effusion. CONCLUSIONS -------- 1. This was a technically good study. 2. The left ventricular size is normal. 3. There is mild concentric left ventricular hypertrophy. 4. Overall left ventricular systolic function is normal with, an EF between 55 - 60 %. 5. LA is severely dilated >40 ml/m2 6. Aortic valve is trileaflet and is mildly thickened. 7. The mitral valve leaflets are mildly thickened. 8. Moderate mitral regurgitation is present. 9. Moderate tricuspid regurgitation present. 10. The right ventricular systolic pressure, as measured by Doppler, is 34.04mmHg. 11. There is no pulmonic regurgitation present. 12. The aortic root size is normal. 13. Normal inferior vena cava with normal inspiratory collapse consistent with estimated right atrial pressure of 5 mmHg. 14. There is a small, generalized pericardial effusion present. 15. Large Pleural Effusion. ACCOUNT ADMINISTRATOR: Temitope Upton RDCS
[2017-12-12 14:56] LABS: Total Protein 5.1 g/dL (6.3-8.2)
--- NOTE | 2017-12-12 14:57 | XR ---
EXAMINATION TYPE: XR chest 1V portable DATE OF EXAM: 12/12/2017 COMPARISON: Prior chest x-ray same date earlier time HISTORY: Status post right thoracentesis TECHNIQUE: Single frontal view of the chest is obtained. FINDINGS: There is interval improved visualization of the right hemidiaphragm. No pneumothorax. No o ther significant interval change. IMPRESSION: No evident complication status post right thoracentesis.
--- NOTE | 2017-12-12 16:24 | P.PN ---
Subjective HLP I: Mrs. Foster is a 76-year-old female with a past medical history of hypertension , thyroid disorder, dementia coming to the hospital with a chief complaint of difficulty in breathing ongoing for 1-2 weeks. Patient was living in [place] and recently moved to [place] one week back. Patient is a poor historian so most of the history is obtained from her daughters were at the bedside. The patient was driven in a car last week from [place] to [place]. Patient was having difficulty in breathing and also increased swelling of her both lower extremities for the past 2 weeks. Patient was recently seen by Dr. High past week for the same complaints and she was started on Lasix and also azithromycin that she was taking. In spite of taking the medications the patient was still feeling short of breath and also stated the breathing treatments did not help her so came into the hospital for further evaluation. Patient denies having any fevers chills or rigors. She complains of cough with yellowish clear sputum. 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 Patient denies having any fevers chills or rigors. No abdominal pain nausea vomiting. Patient states the she has chronic diarrhea for the past 2 years. No complaints of dysuria or hematuria but states that she has urinary incontinence. Patient denies having any recent bleeding episodes. In the emergency department patient had a chest x-ray showing bilateral pleural effusion and as stated was elevated d-dimer she caught a CT and Lacey of the chest which was negative for PE but showed large bilateral pleural effusion with adjacent atelectasis. 12/13/07 Patient is seen and examined by me at bedside, both daughters were at bedside. They state patient has been recently discharged from [facility] for bilateral pneumonia, and VRE UTI. She went to rehab and then discharge home when she got worsening dyspnea and she presented to the hospital with CHF-like picture, mainly diastolic acute CHF. Associated with bilateral pleural effusion. Patient status post tapping of the right side today by the pulmonary team. After the procedure patient is not tachypneic or dyspneic however she has coughing without phlegm. Chest pain. No abdominal pain. No change in urine or bowel habits. No nausea vomiting or fever. Patient feels generally weak and she might benefit from PT/OT evaluation Objective - Vital Signs Vital signs: Vital Signs Temp 97.5 F L 12/12/17 08:00 Pulse 88 12/12/17 11:13 Resp 16 12/12/17 08:00 BP 84/39 12/12/17 08:00 Pulse Ox 98 12/12/17 08:00 Intake & Output 12/11/17 12/12/17 12/12/17 18:59 06:59 18:59 Intake Total 358 462 Balance 358 462 Weight 53.6 kg 53.6 kg Intake: Oral 358 462 Other: Voiding Method Toilet Toilet Toilet Diaper Diaper Incontinent Incontinent # Voids 2 3 # Bowel Movements 5 - Exam GENERAL: The patient is alert and oriented x3, not in any acute distress. Well developed, well nourished. HEENT: Pupils are round and equally reacting to light. EOMI. No scleral icterus. No conjunctival pallor. Normocephalic, atraumatic. No pharyngeal erythema. No thyromegaly. CARDIOVASCULAR: S1 and S2 present. No murmurs, rubs, or gallops. -PULMONARY: Chest is clear to auscultation, bilateral scattered wheezing or crackles. Wound looks clean with no discharge ABDOMEN: Soft, nontender, nondistended, normoactive bowel sounds. No palpable organomegaly. MUSCULOSKELETAL: No joint swelling or deformity. -EXTREMITIES: No cyanosis, clubbing, . bilateral 1+pedal edema. NEUROLOGICAL: Gross neurological examination did not reveal any focal deficits. SKIN: No rashes. - Labs CBC & Chem 7: 12/11/17 08:57 12/12/17 10:45 Labs: Abnormal Lab Results - Last 24 Hours (Table) 12/12/17 12/12/17 Range/Units 10:45 10:45 Carbon Dioxide 31 H (22-30) mmol/L Total Protein 5.1 L (6.3-8.2) g/dL Assessment and Plan Assessment: Acute hypoxic respiratory failure Acute and chronic diastolic CHF Bilateral pleural effusion , secondary to above Elevated troponins VRE infection recently in [place] Hypokalemia Hypomagnesemia Bilateral lower extremity edema Nicotine dependence quit 37 years back Plan: This is a pleasant 76 years old female who presents with acute diastolic CHF on bilateral pleural effusion. Cardiology are following the case and patient is on intravenous patient states the swelling is coming down. Pulmonary input is appreciated. Status post tapping of the right side, with evaluation for left side tapping. Continue with same treatment. Continue symptomatic treatment. Resume home medication. Monitor lytes and vitals. GI and DVT prophylaxis. Further recommendation is theclinicalcourse DVT prophylaxis: Lovenox GI prophylaxis: Protonix PT/OT: Pending Prognosis is guarded
--- NOTE | 2017-12-12 17:09 | P.PN ---
Subjective Progress Note Date: 12/12/17 Principal diagnosis: Acute respiratory failure secondary to acute exacerbation of congestive heart failure, large bilateral pleural effusions This is 76-year-old white female patient who resides in [place], and recently moved to [place] to be closer to her children. Patient had a extended hospital stay in [place] this summer, she states between the hospitalization and the rehab she was or a month and a half for pneumonia. Patient was complaining of ongoing shortness of breath, cough, yellowish sputum. She noted increasing swelling in her bilateral lower extremities. She presented to the hospital for further evaluation, chest x-ray showed small bilateral pleural effusions and 2017, her d-dimer was 1.7, CT angios was obtained which showed no PE, but showed large bilateral pleural effusions and adjacent atelectasis. Patient is hypoxemic, she is on liters per nasal cannula, with pulse ox of 93%, she is afebrile, she is short of breath at rest. She denies any prior history of congestive heart failure, he has never seen a lung specialist in the past. But she does have extensive past smoking history, she used to smoked up to 3 packs a day for 30 years, but she quit 37 years ago. Not wear oxygen. She doesn't have any inhalers of breathing treatments. No leukocytosis on the lab work, WBCs 9.1, hemoglobin is 9.5, sodium is 141, potassium is 3.4, Court is 104 CO2 is 32, renal profile is within normal limits. BNP was 4800, and 3 sets of troponins were 0.061, 0.063, and 0.073. EKG showed normal sinus rhythm, with evidence of the anterior infarct of undetermined age. We were asked to see the patient in evaluation of the large plural effusions bilaterally. On 12/12/2017 patient seen in follow-up on selective care unit. Patient has been diuresing, she is on Lasix 40 mg every 8 hours, that fluid balance is difficult to estimate as the patient is incontinent of urine. Her weight is down by 1.6 kg in the last 24 hours. She still has shortness of breath, today' s chest x-ray has been reviewed, and showed persistent bilateral plural effusions, without significant change compared to yesterday's exam. Ultrasound of the chest, revealed an 0.0 cm fluid pocket on the right, and 6.3 cm on the left. Patient is requesting right thoracentesis. This morning patient was noted to be hypotensive, and her morning dose of Lasix had to be held. Patient was seen and evaluated by Dr. Dueñas, she undergone right-sided thoracentesis with removal of 1450 ML of light-colored yellow pleural fluid. Doses and cytology as well as cultures. Tolerated procedure well, breathing easier, currently on 3 L per nasal cannula and her pulse ox is 97%, she remains in A. fib with a controlled rate. She is afebrile. Follow-up chest x-ray was obtained and showed no evident complications status post right thoracentesis, no pneumothorax. Continue IV diuretics, and rest the medical treatments. Objective - Vital Signs Vital signs: Vital Signs Temp 97.5 F L 12/12/17 08:00 Pulse 88 12/12/17 16:38 Resp 16 12/12/17 08:00 BP 84/39 12/12/17 08:00 Pulse Ox 97 12/12/17 16:27 Intake & Output 12/11/17 12/12/17 12/12/17 18:59 06:59 18:59 Intake Total 358 462 Balance 358 462 Weight 53.6 kg 53.6 kg Intake: Oral 358 462 Other: Voiding Method Toilet Toilet Toilet Diaper Diaper Incontinent Incontinent # Voids 2 3 # Bowel Movements 5 - Exam GENERAL EXAM: Alert, pleasant, 76-year-old white female, mildly short of breath with conversation, but in no apparent distress. 4 L per nasal cannula HEAD: Normocephalic/atraumatic. EYES: Normal reaction of pupils, equal size. Conjunctiva pink, sclera white. NOSE: Clear with pink turbinates. THROAT: No erythema or exudates. NECK: No masses, no JVD, no thyroid enlargement, no adenopathy. CHEST: No chest wall deformity. Symmetrical expansion. LUNGS: Diminished breath sounds and lateral basis, with limited crackles and there was dullness to percussion CVS: Regular rate and rhythm, normal S1 and S2, no gallops, no murmurs, no rubs ABDOMEN: Soft, nontender. No hepatosplenomegaly, normal bowel sounds, no guarding or rigidity. EXTREMITIES: No clubbing, no cyanosis, 2+ pulses and upper and lower extremities. 1+ bilateral lower extremity edema MUSCULOSKELETAL: Muscle strength and tone normal. SPINE: No scoliosis or deformity SKIN: No rashes CENTRAL NERVOUS SYSTEM: Alert and oriented -3. No focal deficits, tone is normal in all 4 extremities. PSYCHIATRIC: Alert and oriented -3. Appropriate affect. Intact judgment and insight. - Labs CBC & Chem 7: 12/11/17 08:57 12/12/17 10:45 Labs: Abnormal Lab Results - Last 24 Hours (Table) 12/12/17 12/12/17 Range/Units 10:45 10:45 Carbon Dioxide 31 H (22-30) mmol/L Total Protein 5.1 L (6.3-8.2) g/dL Assessment and Plan Plan: Assessment: #1. Acute hypoxic respiratory failure secondary to acute exacerbation of congestive heart failure, suspect systolic dysfunction #2. Large bilateral pleural effusions, that is post right-sided thoracentesis today on 12/12/2017 with removal of 1450 ML of pleural fluid #3. Elevated troponins #4. Elevated d-dimer, CT angios negative for pulmonary embolism #5. Recent extended hospitalization in a [facility] for pneumonia #6. Suspect COPD #7. History of nicotine dependence, currently in remission, quit smoking 37 years ago, smoked for 30 years up to 3 packs a day. #8. Generalized weakness #9. Hypokalemia, hypomagnesemia Plan: Patient tolerated right thoracentesis, pleural fluid was sent for analysis, cultures, and cytology. We'll continue with IV diuretics. We may have to proceed with left-sided thoracentesis in the next 24 hours, depending on patient 's clinical status. Continue to follow I performed a history & physical examination of the patient and discussed their management with my nurse practitioner, Ignacia Fountain. I reviewed the nurse practitioner's note and agree with the documented findings and plan of care. Lung sounds are positive for diminished breath sounds, and crackles at the bases. The findings and the impression was discussed with the patient. I attest to the documentation by the nurse practitioner. Time with Patient: Less than 30
[2017-12-12] MEDS ORDERED: HYDROmorphone 1 MG/ML 1 ML SYRINGE IVP PRN (18:38)
[2017-12-12] MEDS: HYDROcodone/APAP 5-325MG 1 EACH TAB PO PRN (18:44)
[2017-12-12 19:06] LABS: Appearance,BF Clear; Color,BF Yellow; Mononuclear WBC,Body Fluid 86 %; Nucleated Cells, Body Fluid 130 /uL; Polynuclear WBC,Body Fluid 14 %; RBC, Body Fluid 195 /uL
--- NOTE | 2017-12-13 00:01 | PCN ---
PROCEDURE NOTE Indication Pleural effusion. A time-out was completed verifying correct patient, procedure, site, positioning , and implant (s) or special equipment if applicable. Ultrasound guidance was/was not used and appropriate fluid pocket was identified and marked. Patient was positioned, prepped and draped in usual sterile fashion. Lidocaine was used to anesthetize the area. A Thoracentesis catheter was introduced into the pleural space and fluid was removed. Blood loss was none. A chest x-ray was ordered to evaluate for pneumothorax. Total Fluid Removed 1.4 L Color of Fluid Yellowish turbid pleural effusion. Fluid was sent for appropriate laboratory tests. Patient tolerated the procedure well and there were no complications. No bedside complications or bleeding. The chest x-ray following the procedure showed no evidence of any pneumothorax. The fluid was sent for analysis. MMODL / IJN: [id number] /
[2017-12-13] MEDS: FUROSEMIDE 10 MG/ML 4 ML VIAL IV SCH ×4 (00:33→23:37)
[2017-12-13 04:44] LABS: Total Protein, Body Fluid 1290 mg/dL
[2017-12-13] MEDS: SODIUM CHLORIDE 0.9% 1,000 ML IV SCH ×2 (05:59→23:38)
[2017-12-13 06:55] LABS: Anion Gap 3 mmol/L; Blood Urea Nitrogen 19 mg/dL (7-17); Carbon Dioxide 32 mmol/L (22-30); Chloride 100 mmol/L (98-107); Glucose 93 mg/dL (74-99); Potassium 3.9 mmol/L (3.5-5.1); Sodium 135 mmol/L (137-145)
[2017-12-13] MEDS: IPRATROPIUM-ALBUTEROL 3 ML NEB INHALATION SCH ×4 (08:58→20:16)
[2017-12-13] MEDS: SYMBICORT 160-4.5 MCG INHALER INHALATION SCH ×2 (08:58→20:17)
[2017-12-13] MEDS: LISINOPRIL 5 MG TAB PO SCH (09:11)
[2017-12-13] MEDS: POTASSIUM CHLORIDE ER 10 MEQ TAB.ER.PRT PO SCH (09:13)
[2017-12-13] MEDS: METOPROLOL SUCCINATE (ER) 50 MG TAB.ER.24H PO SCH (09:13)
[2017-12-13] MEDS: ENOXAPARIN 40 MG/0.4 ML SYRINGE SQ SCH (09:13)
[2017-12-13] MEDS: PANTOPRAZOLE 40 MG TABLET PO SCH (09:13)
[2017-12-13] MEDS: HYDROcodone/APAP 5-325MG 1 EACH TAB PO PRN (09:15)
--- NOTE | 2017-12-13 10:30 | P.PN ---
Subjective HLP I: Mrs. Foster is a 76-year-old female with a past medical history of hypertension , thyroid disorder, dementia coming to the hospital with a chief complaint of difficulty in breathing ongoing for 1-2 weeks. Patient was living in [place] and recently moved to [place] one week back. Patient is a poor historian so most of the history is obtained from her daughters were at the bedside. The patient was driven in a car last week from [place] to [place]. Patient was having difficulty in breathing and also increased swelling of her both lower extremities for the past 2 weeks. Patient was recently seen by Dr. High past week for the same complaints and she was started on Lasix and also azithromycin that she was taking. In spite of taking the medications the patient was still feeling short of breath and also stated the breathing treatments did not help her so came into the hospital for further evaluation. Patient denies having any fevers chills or rigors. She complains of cough with yellowish clear sputum. 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 Patient denies having any fevers chills or rigors. No abdominal pain nausea vomiting. Patient states the she has chronic diarrhea for the past 2 years. No complaints of dysuria or hematuria but states that she has urinary incontinence. Patient denies having any recent bleeding episodes. In the emergency department patient had a chest x-ray showing bilateral pleural effusion and as stated was elevated d-dimer she caught a CT and [place]acey of the chest which was negative for PE but showed large bilateral pleural effusion with adjacent atelectasis. 12/12/17 Patient is seen and examined by me at bedside, both daughters were at bedside. They state patient has been recently discharged from [facility] for bilateral pneumonia, and VRE UTI. She went to rehab and then discharge home when she got worsening dyspnea and she presented to the hospital with CHF-like picture, mainly diastolic acute CHF. Associated with bilateral pleural effusion. Patient status post tapping of the right side today by the pulmonary team. After the procedure patient is not tachypneic or dyspneic however she has coughing without phlegm. Chest pain. No abdominal pain. No change in urine or bowel habits. No nausea vomiting or fever. Patient feels generally weak and she might benefit from PT/OT evaluation 12/13/2017 Patient's was sitting on the side of the mid token freely with no dyspnea. No chest pain with both are improving significantly. However she complains from 3 bouts of loose bowel movement yesterday and once today with no abdominal pain or nausea or vomiting. Patient is able and drink. We'll check for C. diff. Patient then looks controlled. She continued on IV Lasix high dose and she states she is diuresing lots pathology report for pleural fluid aspirate still pending for cytology culture and analysis Objective - Vital Signs Vital signs: Vital Signs Temp 97.5 F L 12/13/17 04:10 Pulse 78 12/13/17 09:09 Resp 16 12/13/17 08:58 BP 111/56 12/13/17 04:10 Pulse Ox 99 12/13/17 08:58 Intake & Output 12/12/17 12/13/17 12/13/17 18:59 06:59 18:59 Intake Total 684 300 Balance 684 300 Weight 53.6 kg 51.3 kg Intake: Intake, IV Titration 60 Amount Sodium Chloride 0.9% 1, 60 000 ml @ 20 mls/hr IV . Q24H [facility] Rx#:[id number] Oral 684 240 Other: Voiding Method Toilet Toilet Diaper Diaper Incontinent Incontinent # Voids 3 4 - Exam GENERAL: The patient is alert and oriented x3, not in any acute distress. Well developed, well nourished. HEENT: Pupils are round and equally reacting to light. EOMI. No scleral icterus. No conjunctival pallor. Normocephalic, atraumatic. No pharyngeal erythema. No thyromegaly. CARDIOVASCULAR: S1 and S2 present. No murmurs, rubs, or gallops. -PULMONARY: Chest is clear to auscultation, bilateral scattered wheezing or crackles. Wound looks clean with no discharge ABDOMEN: Soft, nontender, nondistended, normoactive bowel sounds. No palpable organomegaly. MUSCULOSKELETAL: No joint swelling or deformity. -EXTREMITIES: No cyanosis, clubbing, . bilateral 1+pedal edema. NEUROLOGICAL: Gross neurological examination did not reveal any focal deficits. SKIN: No rashes. - Labs CBC & Chem 7: 12/11/17 08:57 12/13/17 06:28 Labs: Abnormal Lab Results - Last 24 Hours (Table) 12/12/17 12/12/17 12/13/17 Range/Units 10:45 10:45 06:28 Sodium 135 L (137-145) mmol/L Carbon Dioxide 31 H 32 H (22-30) mmol/L BUN 19 H (7-17) mg/dL Calcium 8.0 L (8.4-10.2) mg/dL Total Protein 5.1 L (6.3-8.2) g/dL Microbiology - Last 24 Hours (Table) 12/12/17 14:30 Gram Stain - Preliminary Pleural Fluid Body Fluid Culture - Preliminary 12/12/17 14:30 Acid Fast Bacilli Culture - Preliminary Pleural Fluid 12/12/17 14:30 Fungal Culture - Preliminary Pleural Fluid Assessment and Plan Assessment: Acute hypoxic respiratory failure Acute and chronic diastolic CHF Bilateral pleural effusion , secondary to above, status post right thoracocentesis Elevated troponins, evaluated by pricer bagger VRE infection recently in [place] Hypokalemia Hypomagnesemia Bilateral lower extremity edema Nicotine dependence quit 37 years back Plan: This is a pleasant 76 years old female who presents with acute diastolic CHF on bilateral pleural effusion. Cardiology are following the case and patient is on intravenous patient states the swelling is coming down. Pulmonary input is appreciated. Status post tapping of the right side, with evaluation for left side tapping. Continue with same treatment. Continue symptomatic treatment. Resume home medication. Monitor lytes and vitals. GI and DVT prophylaxis. Further recommendation is theclinicalcourse DVT prophylaxis: Lovenox GI prophylaxis: Protonix PT/OT: Pending Prognosis is guarded
--- NOTE | 2017-12-13 12:22 | P.PN ---
Subjective Progress Note Date: 12/13/17 This is a 76-year-old female who has known history of hypertension, hypothyroidism, anxiety, dementia, who resides in [place] and recently moved to [place]. Over the summer, patient apparently had an extended stay in the hospital there with pneumonia. She presents to the hospital on this occasion with symptoms of progressively worsening shortness of breath with associated cough and yellow sputum production. She was also noting some swelling in her bilateral lower extremities. Chest x-ray on arrival here revealed small bilateral pleural effusions. CAT scan of the chest did not reveal evidence of pulmonary embolism, large pleural effusions with basilar pulmonary atelectasis and infiltrate, mostly atelectasis, nonspecific mediastinal adenopathy noted. Ultrasound of the chest was performed which revealed bilateral pleural effusion , both sides were marked for possible thoracentesis. Repeat chest x-ray was performed this morning which continued to show bilateral pleural effusions and possible congestive heart failure, pneumonia not excluded. Her BNP level on admission was 4800. Patient was noted also to have mild abnormality in troponin , not consistent with acute coronary syndrome, likely secondary to supply and demand mismatch. At the time of my examination this morning, patient was quite ornary, she states that she is frustrated having to have so many chest x-rays and things done when she doesn't feel well. Patient had an echocardiogram with Doppler study performed this morning results are yet pending, but she states after the echo she became quite short of breath. 12/13/2017 Patient seen and examined this morning, she does state that her breathing has improved as compared with yesterday, she underwent a right-sided thoracentesis by Dr. Dueñsa. Patient states she did have several episodes of diarrhea stools this morning. Echocardiogram with Doppler study was performed which revealed an ejection fraction of 55-60%. Blood pressure 100/50 with a heart rate in the 70s, 99% on 2 L of oxygen. She continues to be on 40 mg of IV Lasix every 8 hourly. Her weight is overall down 2 kg today. Objective - Vital Signs Vital signs: Vital Signs Temp 97.7 F 12/13/17 08:00 Pulse 78 12/13/17 09:09 Resp 16 12/13/17 08:58 BP 101/49 12/13/17 08:00 Pulse Ox 99 12/13/17 08:58 Intake & Output 12/12/17 12/13/17 12/13/17 18:59 06:59 18:59 Intake Total 684 300 Balance 684 300 Weight 53.6 kg 51.3 kg Intake: Intake, IV Titration 60 Amount Sodium Chloride 0.9% 1, 60 000 ml @ 20 mls/hr IV . Q24H [facility] Rx#:[id number] Oral 684 240 Other: Voiding Method Toilet Toilet Toilet Diaper Diaper Diaper Incontinent Incontinent Incontinent # Voids 3 4 - Exam GENERAL EXAM: Alert, pleasant, 76-year-old white female, mildly short of breath with conversation, but in no apparent distress. 4 L per nasal cannula HEAD: Normocephalic/atraumatic. EYES: Normal reaction of pupils, equal size. Conjunctiva pink, sclera white. NOSE: Clear with pink turbinates. THROAT: No erythema or exudates. NECK: No masses, no JVD, no thyroid enlargement, no adenopathy. CHEST: No chest wall deformity. Symmetrical expansion. LUNGS: Diminished breath sounds and lateral basis, with limited crackles and there was dullness to percussion CVS: Regular rate and rhythm, normal S1 and S2, no gallops, no murmurs, no rubs ABDOMEN: Soft, nontender. No hepatosplenomegaly, normal bowel sounds, no guarding or rigidity. EXTREMITIES: No clubbing, no cyanosis, 2+ pulses and upper and lower extremities. 1+ bilateral lower extremity edema MUSCULOSKELETAL: Muscle strength and tone normal. SPINE: No scoliosis or deformity SKIN: No rashes CENTRAL NERVOUS SYSTEM: Alert and oriented -3. No focal deficits, tone is normal in all 4 extremities. PSYCHIATRIC: Alert and oriented -3. Appropriate affect. Intact judgment and insight. - Labs CBC & Chem 7: 12/11/17 08:57 12/13/17 06:28 Labs: Abnormal Lab Results - Last 24 Hours (Table) 12/12/17 12/13/17 Range/Units 10:45 06:28 Sodium 135 L (137-145) mmol/L Carbon Dioxide 32 H (22-30) mmol/L BUN 19 H (7-17) mg/dL Calcium 8.0 L (8.4-10.2) mg/dL Total Protein 5.1 L (6.3-8.2) g/dL Microbiology - Last 24 Hours (Table) 12/12/17 14:30 Gram Stain - Preliminary Pleural Fluid Body Fluid Culture - Preliminary 12/12/17 14:30 Acid Fast Bacilli Culture - Preliminary Pleural Fluid 12/12/17 14:30 Fungal Culture - Preliminary Pleural Fluid Assessment and Plan Plan: Assessment: #1. Acute hypoxic respiratory failure secondary to acute exacerbation of congestive heart failure, diastolic acute on chronic #2. Large bilateral pleural effusions, status post right sided thoracentesis #3. Elevated troponins, not consistent with acute coronary syndrome, likely secondary to supply and demand mismatch #4. Elevated d-dimer, CT angio negative for pulmonary embolism #5. Recent extended hospitalization in a [facility] for pneumonia #6. Suspect COPD with possible exacerbation #7. History of nicotine dependence, currently in remission, quit smoking 37 years ago, smoked for 30 years up to 3 packs a day. #8. Generalized weakness #9. Hypokalemia, hypomagnesemia Plan From cardiology's perspective, we will continue current dose of IV Lasix. Patient did have a right-sided thoracentesis, pulmonary may also to the left side. We will continue to follow. DNP note has been reviewed, I agree with a documented findings and plan of care. Patient was seen and examined.
--- NOTE | 2017-12-13 13:26 | P.PN ---
Subjective Progress Note Date: 12/13/17 Principal diagnosis: Acute respiratory failure secondary to acute exacerbation of congestive heart failure, large bilateral pleural effusions This is 76-year-old white female patient who resides in [place], and recently moved to [place] to be closer to her children. Patient had a extended hospital stay in [place] this summer, she states between the hospitalization and the rehab she was or a month and a half for pneumonia. Patient was complaining of ongoing shortness of breath, cough, yellowish sputum. She noted increasing swelling in her bilateral lower extremities. She presented to the hospital for further evaluation, chest x-ray showed small bilateral pleural effusions and 2017, her d-dimer was 1.7, CT angios was obtained which showed no PE, but showed large bilateral pleural effusions and adjacent atelectasis. Patient is hypoxemic, she is on liters per nasal cannula, with pulse ox of 93%, she is afebrile, she is short of breath at rest. She denies any prior history of congestive heart failure, he has never seen a lung specialist in the past. But she does have extensive past smoking history, she used to smoked up to 3 packs a day for 30 years, but she quit 37 years ago. Not wear oxygen. She doesn't have any inhalers of breathing treatments. No leukocytosis on the lab work, WBCs 9.1, hemoglobin is 9.5, sodium is 141, potassium is 3.4, Court is 104 CO2 is 32, renal profile is within normal limits. BNP was 4800, and 3 sets of troponins were 0.061, 0.063, and 0.073. EKG showed normal sinus rhythm, with evidence of the anterior infarct of undetermined age. We were asked to see the patient in evaluation of the large plural effusions bilaterally. On 12/12/2017 patient seen in follow-up on selective care unit. Patient has been diuresing, she is on Lasix 40 mg every 8 hours, that fluid balance is difficult to estimate as the patient is incontinent of urine. Her weight is down by 1.6 kg in the last 24 hours. She still has shortness of breath, today' s chest x-ray has been reviewed, and showed persistent bilateral plural effusions, without significant change compared to yesterday's exam. Ultrasound of the chest, revealed an 0.0 cm fluid pocket on the right, and 6.3 cm on the left. Patient is requesting right thoracentesis. This morning patient was noted to be hypotensive, and her morning dose of Lasix had to be held. Patient was seen and evaluated by Dr. Dueñas, she undergone right-sided thoracentesis with removal of 1450 ML of light-colored yellow pleural fluid. Doses and cytology as well as cultures. Tolerated procedure well, breathing easier, currently on 3 L per nasal cannula and her pulse ox is 97%, she remains in A. fib with a controlled rate. She is afebrile. Follow-up chest x-ray was obtained and showed no evident complications status post right thoracentesis, no pneumothorax. Continue IV diuretics, and rest the medical treatments. On 12/13/2017 patient seen again in follow-up on selective care unit. She is status post right-sided thoracentesis would removal of 1450 ML of pleural fluid. Pleural fluid analysis revealed transudate of pleural fluid, consistent with congestive heart failure. Today she is breathing easier, currently on 2 L per nasal cannula her pulse ox is 95%, patient is slightly hypotensive, blood pressures 83/50, with a mean of 61. Afebrile. Lung sounds reveal worse crackles over right base, crackles on the left, diminished breath sounds. We will obtain repeat chest x-ray, patient continues on IV diuretics, her weight is down by 2.3 kg in the last 24 hours. Objective - Vital Signs Vital signs: Vital Signs Temp 97.5 F L 12/13/17 12:00 Pulse 75 12/13/17 12:00 Resp 18 12/13/17 12:00 BP 83/50 12/13/17 12:00 Pulse Ox 95 12/13/17 12:00 Intake & Output 12/12/17 12/13/17 12/13/17 18:59 06:59 18:59 Intake Total 684 300 Balance 684 300 Weight 53.6 kg 51.3 kg Intake: Intake, IV Titration 60 Amount Sodium Chloride 0.9% 1, 60 000 ml @ 20 mls/hr IV . Q24H [facility] Rx#:[id number] Oral 684 240 Other: Voiding Method Toilet Toilet Toilet Diaper Diaper Diaper Incontinent Incontinent Incontinent # Voids 3 4 - Exam GENERAL EXAM: Alert, pleasant, 76-year-old white female, mildly short of breath with conversation, but in no apparent distress. 2 L per nasal cannula HEAD: Normocephalic/atraumatic. EYES: Normal reaction of pupils, equal size. Conjunctiva pink, sclera white. NOSE: Clear with pink turbinates. THROAT: No erythema or exudates. NECK: No masses, no JVD, no thyroid enlargement, no adenopathy. CHEST: No chest wall deformity. Symmetrical expansion. LUNGS: Coarse crackles on the right base, some limited crackles on the left CVS: Regular rate and rhythm, normal S1 and S2, no gallops, no murmurs, no rubs ABDOMEN: Soft, nontender. No hepatosplenomegaly, normal bowel sounds, no guarding or rigidity. EXTREMITIES: No clubbing, no cyanosis, 2+ pulses and upper and lower extremities. 1+ bilateral lower extremity edema MUSCULOSKELETAL: Muscle strength and tone normal. SPINE: No scoliosis or deformity SKIN: No rashes CENTRAL NERVOUS SYSTEM: Alert and oriented -3. No focal deficits, tone is normal in all 4 extremities. PSYCHIATRIC: Alert and oriented -3. Appropriate affect. Intact judgment and insight. - Labs CBC & Chem 7: 12/11/17 08:57 12/13/17 06:28 Labs: Abnormal Lab Results - Last 24 Hours (Table) 12/12/17 12/13/17 Range/Units 10:45 06:28 Sodium 135 L (137-145) mmol/L Carbon Dioxide 32 H (22-30) mmol/L BUN 19 H (7-17) mg/dL Calcium 8.0 L (8.4-10.2) mg/dL Total Protein 5.1 L (6.3-8.2) g/dL Microbiology - Last 24 Hours (Table) 12/12/17 14:30 Gram Stain - Preliminary Pleural Fluid Body Fluid Culture - Preliminary 12/12/17 14:30 Acid Fast Bacilli Culture - Preliminary Pleural Fluid 12/12/17 14:30 Fungal Culture - Preliminary Pleural Fluid Assessment and Plan Plan: Assessment: #1. Acute hypoxic respiratory failure secondary to acute exacerbation of congestive heart failure, suspect systolic dysfunction #2. Large bilateral pleural effusions, that is post right-sided thoracentesis today on 12/12/2017 with removal of 1450 ML of pleural fluid, pleural fluid analysis revealed transudate of pleural fluid #3. Elevated troponins #4. Elevated d-dimer, CT angios negative for pulmonary embolism #5. Recent extended hospitalization in a [place] hospital for pneumonia #6. Suspect COPD #7. History of nicotine dependence, currently in remission, quit smoking 37 years ago, smoked for 30 years up to 3 packs a day. #8. Generalized weakness #9. Hypokalemia, hypomagnesemia Plan: Continue current plan of treatment, continue IV diuretics, patient's breathing is improving, FiO2 is down to 2 L per nasal cannula, we'll repeat a chest x-ray today. We'll continue to follow. Pleural fluid cytology is pending, cultures pending. I performed a history & physical examination of the patient and discussed their management with my nurse practitioner, Ignacia Fountain. I reviewed the nurse practitioner's note and agree with the documented findings and plan of care. Lung sounds are positive for diminished breath sounds, and crackles at the bases. The findings and the impression was discussed with the patient. I attest to the documentation by the nurse practitioner. Time with Patient: Less than 30
--- NOTE | 2017-12-13 14:31 | CDI ---
Last Revision, February 2017 Documentation Clarification Form Date: 12/13/2017 2:18:44 PM From: Nafisa ReddyDriscollSTEPHANIE, CCDS Admit Date: 12/11/2017 11:22:00 AM Patient Name: Maury Foster Visit Number: [id number] Discharge Date: ATTENTION: The Clinical Documentation Specialists (CDI) and [facility] Coding Staff appreciate your assistance in clarifying documentation. Please respond to the clarification below the line at the bottom and electronically sign. The CDI & [facility] Coding staff will review the response and follow-up if needed. Please note: Queries are made part of the Legal Health Record. If you have any questions, please contact the author of this message via ITS. Christina Mccarthy MD: Atrial fibrillation is documented in the 12/12 & 12/13 pulmonary progress notes. Cardiology is consulted, no documented atrial fibrillation. History/Risk Factors: Hypertension, Hypothyroidism, Gastric/Esophageal Ulcer, Anxiety, Depression, Dementia, VRE. Clinical Indicators: SOB 1-2 weeks, Diagnosed with pneumonia & VRE in urine while in [place] earlier this year. VS: T 98.3, P 83 - 93 - 55* - 78; BP 146/68, PO 92 2Lnc. EKG: R 85 PACs Treatment: Telemetry, Albuterol INH, IV Ativan, IV fluid, MagSulfate, Nitro sl, IV Lasix, IV Dilaudid. In your professional opinion, can you please clarify the type of atrial fibrillation, if known? Chronic/Permanent Paroxysmal Persistent Other, please specify Unable to determine no documented Afib, typo MTDD
--- NOTE | 2017-12-13 15:55 | XR ---
EXAMINATION TYPE: XR chest 2V DATE OF EXAM: 12/13/2017 COMPARISON: 12/12/2017 HISTORY: 76-year-old female follow-up CHF TECHNIQUE: Frontal and lateral views FINDINGS: Heart borderline enlarged. Increasing interstitial densities as well as patchy and confluent left mid lung and right basilar opacities which show interval increase. Previous left pleural effusion has de creased in size though a right pleural effusion is increased now. IMPRESSION: 1. Continued mild to moderate CHF with shifting pulmonary edema. 2. Increased mild to moderate right pleural effusion and decreasing, now small left pleural effusion. Adjacent atelectasis and/or consolidation now right greater than left.
[2017-12-13] MEDS ORDERED: Magnesium Replacement Protocol 1 EACH MISC MISCELLANE PRN (21:58)
[2017-12-13] MEDS: ACETAMINOPHEN TAB 325 MG TAB PO PRN (22:21)
[2017-12-13] MEDS: MAGNESIUM SULFATE-D5W PMX 1 GM in DEXTROSE/WATER 1 100ML.BAG IVPB SCH ×2 (22:35→23:38)
[2017-12-14] MEDS: MAGNESIUM SULFATE-D5W PMX 1 GM in DEXTROSE/WATER 1 100ML.BAG IVPB SCH (01:07)
[2017-12-14] MEDS: PANTOPRAZOLE 40 MG TABLET PO SCH (06:02)
[2017-12-14 07:52] LABS: Anion Gap 7 mmol/L; Blood Urea Nitrogen 19 mg/dL (7-17); Carbon Dioxide 33 mmol/L (22-30); Chloride 95 mmol/L (98-107); Glucose 96 mg/dL (74-99); Magnesium 2.2 mg/dL (1.6-2.3); Sodium 135 mmol/L (137-145)
[2017-12-14 07:56] LABS: Basophils % (A) 0 %; Eosinophils # (A) 0.3 k/uL (0-0.7); Eosinophils % (A) 4 %; HCT 28.5 % (34.0-46.0); HGB 8.8 gm/dL (11.4-16.0); Hypochromasia Slight; Lymphocytes % (A) 28 %; MCH 30.6 pg (25.0-35.0); MCV 98.8 fL (80.0-100.0); Mean Platelet Volume 8.7; Monocytes # (A) 0.8 k/uL (0-1.0); Monocytes % (A) 11 %; Neutrophils # (A) 3.9 k/uL (1.3-7.7); Neutrophils % (A) 54 %; Platelet Count 373 k/uL (150-450); RBC 2.88 m/uL (3.80-5.40); RDW 14.6 % (11.5-15.5); WBC 7.1 k/uL (3.8-10.6)
[2017-12-14] MEDS: IPRATROPIUM-ALBUTEROL 3 ML NEB INHALATION SCH ×4 (07:58→20:37)
[2017-12-14] MEDS: SYMBICORT 160-4.5 MCG INHALER INHALATION SCH ×2 (07:58→20:37)
[2017-12-14] MEDS: ENOXAPARIN 40 MG/0.4 ML SYRINGE SQ SCH (08:06)
[2017-12-14] MEDS: FUROSEMIDE 10 MG/ML 4 ML VIAL IV SCH (08:06)
[2017-12-14] MEDS: METOPROLOL SUCCINATE (ER) 50 MG TAB.ER.24H PO SCH (08:06)
[2017-12-14] MEDS: LISINOPRIL 5 MG TAB PO SCH (08:06)
[2017-12-14] MEDS: POTASSIUM CHLORIDE ER 10 MEQ TAB.ER.PRT PO SCH (08:06)
--- NOTE | 2017-12-14 12:03 | P.PN ---
Subjective Progress Note Date: 12/14/17 This is a 76-year-old female who has known history of hypertension, hypothyroidism, anxiety, dementia, who resides in [place] and recently moved to [place]. Over the summer, patient apparently had an extended stay in the hospital there with pneumonia. She presents to the hospital on this occasion with symptoms of progressively worsening shortness of breath with associated cough and yellow sputum production. She was also noting some swelling in her bilateral lower extremities. Chest x-ray on arrival here revealed small bilateral pleural effusions. CAT scan of the chest did not reveal evidence of pulmonary embolism, large pleural effusions with basilar pulmonary atelectasis and infiltrate, mostly atelectasis, nonspecific mediastinal adenopathy noted. Ultrasound of the chest was performed which revealed bilateral pleural effusion , both sides were marked for possible thoracentesis. Repeat chest x-ray was performed this morning which continued to show bilateral pleural effusions and possible congestive heart failure, pneumonia not excluded. Her BNP level on admission was 4800. Patient was noted also to have mild abnormality in troponin , not consistent with acute coronary syndrome, likely secondary to supply and demand mismatch. At the time of my examination this morning, patient was quite ornary, she states that she is frustrated having to have so many chest x-rays and things done when she doesn't feel well. Patient had an echocardiogram with Doppler study performed this morning results are yet pending, but she states after the echo she became quite short of breath. 12/13/2017 Patient seen and examined this morning, she does state that her breathing has improved as compared with yesterday, she underwent a right-sided thoracentesis by Dr. Dueñas. Patient states she did have several episodes of diarrhea stools this morning. Echocardiogram with Doppler study was performed which revealed an ejection fraction of 55-60%. Blood pressure 100/50 with a heart rate in the 70s, 99% on 2 L of oxygen. She continues to be on 40 mg of IV Lasix every 8 hourly. Her weight is overall down 2 kg today. 12/14/2017 Patient seen and examined this morning, sitting up in the chair at bedside. Breathing is significantly improved. Blood pressure 124/70 with a heart rate in the 70s, 100% on room air. White blood cell count 7.1, hemoglobin 8.8, platelet count 373. Sodium 135, potassium 4.0, BUN 19, creatinine 0.6. Objective - Vital Signs Vital signs: Vital Signs Temp 97.5 F L 12/14/17 08:00 Pulse 78 12/14/17 11:51 Resp 18 12/14/17 10:56 BP 125/76 12/14/17 08:00 Pulse Ox 100 12/14/17 08:00 Intake & Output 12/13/17 12/14/17 12/14/17 18:59 06:59 18:59 Intake Total 140 222 Balance 140 222 Weight 51.8 kg Intake: Intake, IV Titration 140 Amount Sodium Chloride 0.9% 1, 140 000 ml @ 20 mls/hr IV . Q24H [facility]AC[facility] Rx#:[id number] Oral 222 Other: Voiding Method Toilet Diaper Diaper Diaper Incontinent Incontinent Incontinent # Voids 4 2 - Exam GENERAL EXAM: Alert, pleasant, 76-year-old white female, mildly short of breath with conversation, but in no apparent distress. 4 L per nasal cannula HEAD: Normocephalic/atraumatic. EYES: Normal reaction of pupils, equal size. Conjunctiva pink, sclera white. NOSE: Clear with pink turbinates. THROAT: No erythema or exudates. NECK: No masses, no JVD, no thyroid enlargement, no adenopathy. CHEST: No chest wall deformity. Symmetrical expansion. LUNGS: Improvement in air entry to the bases CVS: Regular rate and rhythm, normal S1 and S2, no gallops, no murmurs, no rubs ABDOMEN: Soft, nontender. No hepatosplenomegaly, normal bowel sounds, no guarding or rigidity. EXTREMITIES: No clubbing, no cyanosis, 2+ pulses and upper and lower extremities. 1+ bilateral lower extremity edema MUSCULOSKELETAL: Muscle strength and tone normal. SPINE: No scoliosis or deformity SKIN: No rashes CENTRAL NERVOUS SYSTEM: Alert and oriented -3. No focal deficits, tone is normal in all 4 extremities. PSYCHIATRIC: Alert and oriented -3. Appropriate affect. Intact judgment and insight. - Labs CBC & Chem 7: 12/14/17 06:40 12/14/17 06:40 Labs: Abnormal Lab Results - Last 24 Hours (Table) 12/13/17 12/14/17 12/14/17 Range/Units 06:28 06:40 06:40 RBC 2.88 L (3.80-5.40) m/uL Hgb 8.8 L (11.4-16.0) gm/dL Hct 28.5 L (34.0-46.0) % Sodium 135 L (137-145) mmol/L Chloride 95 L (98-107) mmol/L Carbon Dioxide 33 H (22-30) mmol/L BUN 19 H (7-17) mg/dL Calcium 8.0 L (8.4-10.2) mg/dL Magnesium 1.3 L (1.6-2.3) mg/dL Microbiology - Last 24 Hours (Table) 12/12/17 14:30 Gram Stain - Preliminary Pleural Fluid Body Fluid Culture - Preliminary 12/12/17 14:30 Acid Fast Bacilli Smear - Final Pleural Fluid Acid Fast Bacilli Culture - Preliminary Assessment and Plan Plan: Assessment: #1. Acute hypoxic respiratory failure secondary to acute exacerbation of congestive heart failure, diastolic acute on chronic #2. Large bilateral pleural effusions, status post right sided thoracentesis #3. Elevated troponins, not consistent with acute coronary syndrome, likely secondary to supply and demand mismatch #4. Elevated d-dimer, CT angio negative for pulmonary embolism #5. Recent extended hospitalization in a [place] hospital for pneumonia #6. Suspect COPD with possible exacerbation #7. History of nicotine dependence, currently in remission, quit smoking 37 years ago, smoked for 30 years up to 3 packs a day. #8. Generalized weakness #9. Hypokalemia, hypomagnesemia Plan From cardiology's perspective, we will continue current dose of IV Lasix. Repeat chest x-ray tomorrow. DNP note has been reviewed, I agree with a documented findings and plan of care. Patient was seen and examined.
--- NOTE | 2017-12-14 14:25 | P.PN ---
Subjective Progress Note Date: 12/14/17 Progress note being dictated for Dr. Amaya Interval history:Mrs. Foster is a 76-year-old female with a past medical history of hypertension, thyroid disorder, dementia coming to the hospital with a chief complaint of difficulty in breathing ongoing for 1-2 weeks. Patient was living in [place] and recently moved to [place] one week back. Patient is a poor historian so most of the history is obtained from her daughters were at the bedside. The patient was driven in a car last week from [place] to [place]. Patient was having difficulty in breathing and also increased swelling of her both lower extremities for the past 2 weeks. Patient was recently seen by Dr. High past week for the same complaints and she was started on Lasix and also azithromycin that she was taking. In spite of taking the medications the patient was still feeling short of breath and also stated the breathing treatments did not help her so came into the hospital for further evaluation. Patient denies having any fevers chills or rigors. She complains of cough with yellowish clear sputum. As per the history patient was also diagnosed with VRE in her urine recently and she was hospitalized in [place]. Patient denies having any fevers chills or rigors. No abdominal pain nausea vomiting. Patient states the she has chronic diarrhea for the past 2 years. No complaints of dysuria or hematuria but states that she has urinary incontinence. Patient denies having any recent bleeding episodes. In the emergency department patient had a chest x-ray showing bilateral pleural effusion and as stated was elevated d-dimer she caught a CT and [place] of the chest which was negative for PE but showed large bilateral pleural effusion with adjacent atelectasis. 12/12/17 Patient is seen and examined by me at bedside, both daughters were at bedside. They state patient has been recently discharged from [facility] for bilateral pneumonia, and VRE UTI. She went to rehab and then discharge home when she got worsening dyspnea and she presented to the hospital with CHF-like picture, mainly diastolic acute CHF. Associated with bilateral pleural effusion. Patient status post tapping of the right side today by the pulmonary team. After the procedure patient is not tachypneic or dyspneic however she has coughing without phlegm. Chest pain. No abdominal pain. No change in urine or bowel habits. No nausea vomiting or fever. Patient feels generally weak and she might benefit from PT/OT evaluation 12/13/2017 Patient's was sitting on the side of the mid token freely with no dyspnea. No chest pain with both are improving significantly. However she complains from 3 bouts of loose bowel movement yesterday and once today with no abdominal pain or nausea or vomiting. Patient is able and drink. We'll check for C. diff. Patient then looks controlled. She continued on IV Lasix high dose and she states she is diuresing lots pathology report for pleural fluid aspirate still pending for cytology culture and analysis 12/14/2017 sitting up in chair. pleural pathology reporting benign pleural effusion, pleural fluid cultures pending. Diuresing well on Lasix IV push with significant clinical improvement. Maintaining O2 sats in the high 90s on 2 L nasal cannula. Objective - Vital Signs Vital signs: Vital Signs Temp 97.7 F 12/14/17 12:00 Pulse 79 12/14/17 12:01 Resp 16 12/14/17 12:00 BP 98/54 12/14/17 12:00 Pulse Ox 95 12/14/17 12:00 Intake & Output 12/13/17 12/14/17 12/14/17 18:59 06:59 18:59 Intake Total 140 222 Balance 140 222 Weight 51.8 kg Intake: Intake, IV Titration 140 Amount Sodium Chloride 0.9% 1, 140 000 ml @ 20 mls/hr IV . Q24H [facility] Rx#:[id number] Oral 222 Other: Voiding Method Toilet Diaper Diaper Diaper Incontinent Incontinent Incontinent # Voids 4 2 - Exam GENERAL: The patient is alert and oriented x3, not in any acute distress. Well developed, well nourished. HEENT: Pupils are round and equally reacting to light. EOMI. No scleral icterus. No conjunctival pallor. Normocephalic, atraumatic. No pharyngeal erythema. No thyromegaly. CARDIOVASCULAR: S1 and S2 present. No murmurs, rubs, or gallops. -PULMONARY: Chest is clear to auscultation, bilateral scattered wheezing or crackles. Wound looks clean with no discharge ABDOMEN: Soft, nontender, nondistended, normoactive bowel sounds. No palpable organomegaly. MUSCULOSKELETAL: No joint swelling or deformity. -EXTREMITIES: No cyanosis, clubbing, . bilateral 1+pedal edema. NEUROLOGICAL: Gross neurological examination did not reveal any focal deficits. SKIN: No rashes. Microbiology 12/12/17 14:30 Pleural Fluid Gram Stain - Preliminary 12/12/17 14:30 Pleural Fluid Body Fluid Culture - Preliminary 12/12/17 14:30 Pleural Fluid Acid Fast Bacilli Smear - Final 12/12/17 14:30 Pleural Fluid Acid Fast Bacilli Culture - Preliminary 12/12/17 14:30 Pleural Fluid Fungal Culture - Preliminary - Labs CBC & Chem 7: 12/14/17 06:40 12/14/17 06:40 Labs: Abnormal Lab Results - Last 24 Hours (Table) 12/13/17 12/14/17 12/14/17 Range/Units 06:28 06:40 06:40 RBC 2.88 L (3.80-5.40) m/uL Hgb 8.8 L (11.4-16.0) gm/dL Hct 28.5 L (34.0-46.0) % Sodium 135 L (137-145) mmol/L Chloride 95 L (98-107) mmol/L Carbon Dioxide 33 H (22-30) mmol/L BUN 19 H (7-17) mg/dL Calcium 8.0 L (8.4-10.2) mg/dL Magnesium 1.3 L (1.6-2.3) mg/dL Microbiology - Last 24 Hours (Table) 12/12/17 14:30 Gram Stain - Preliminary Pleural Fluid Body Fluid Culture - Preliminary 12/12/17 14:30 Acid Fast Bacilli Smear - Final Pleural Fluid Acid Fast Bacilli Culture - Preliminary Assessment and Plan Assessment: Acute hypoxic respiratory failure secondary to Acute and chronic diastolic CHF Bilateral pleural effusion , secondary to CHF, status post right thoracocentesis Elevated troponins, not consistent with acute coronary syndrome as per cardiology VRE infection recently in [place] Hypokalemia, improved Hypomagnesemia, improved Bilateral lower extremity edema Nicotine dependence quit 37 years back Plan: Continue on current medication regime ,monitoring and symptomatic treatment. Pleural cultures pending. Aggressive pulmonary toileting. Increase ambulation as tolerated. Discharge planning in progress for tomorrow pending pulmonary cardiology clearance. The impression and plan of care has been dictated as directed. : I performed a history and examination of this patient, discussed the same with the dictator. I agree with the dictator's note ,documented as a scribe. Any additional findings or plans will be noted.
--- NOTE | 2017-12-14 15:18 | P.PN ---
Subjective Progress Note Date: 12/14/17 Principal diagnosis: Acute respiratory failure secondary to acute exacerbation of congestive heart failure, large bilateral pleural effusions This is 76-year-old white female patient who resides in [place], and recently moved to [place] to be closer to her children. Patient had a extended hospital stay in [place] this summer, she states between the hospitalization and the rehab she was or a month and a half for pneumonia. Patient was complaining of ongoing shortness of breath, cough, yellowish sputum. She noted increasing swelling in her bilateral lower extremities. She presented to the hospital for further evaluation, chest x-ray showed small bilateral pleural effusions and 2017, her d-dimer was 1.7, CT angios was obtained which showed no PE, but showed large bilateral pleural effusions and adjacent atelectasis. Patient is hypoxemic, she is on liters per nasal cannula, with pulse ox of 93%, she is afebrile, she is short of breath at rest. She denies any prior history of congestive heart failure, he has never seen a lung specialist in the past. But she does have extensive past smoking history, she used to smoked up to 3 packs a day for 30 years, but she quit 37 years ago. Not wear oxygen. She doesn't have any inhalers of breathing treatments. No leukocytosis on the lab work, WBCs 9.1, hemoglobin is 9.5, sodium is 141, potassium is 3.4, Court is 104 CO2 is 32, renal profile is within normal limits. BNP was 4800, and 3 sets of troponins were 0.061, 0.063, and 0.073. EKG showed normal sinus rhythm, with evidence of the anterior infarct of undetermined age. We were asked to see the patient in evaluation of the large plural effusions bilaterally. On 12/12/2017 patient seen in follow-up on selective care unit. Patient has been diuresing, she is on Lasix 40 mg every 8 hours, that fluid balance is difficult to estimate as the patient is incontinent of urine. Her weight is down by 1.6 kg in the last 24 hours. She still has shortness of breath, today' s chest x-ray has been reviewed, and showed persistent bilateral plural effusions, without significant change compared to yesterday's exam. Ultrasound of the chest, revealed an 0.0 cm fluid pocket on the right, and 6.3 cm on the left. Patient is requesting right thoracentesis. This morning patient was noted to be hypotensive, and her morning dose of Lasix had to be held. Patient was seen and evaluated by Dr. Dueñas, she undergone right-sided thoracentesis with removal of 1450 ML of light-colored yellow pleural fluid. Doses and cytology as well as cultures. Tolerated procedure well, breathing easier, currently on 3 L per nasal cannula and her pulse ox is 97%, she remains in A. fib with a controlled rate. She is afebrile. Follow-up chest x-ray was obtained and showed no evident complications status post right thoracentesis, no pneumothorax. Continue IV diuretics, and rest the medical treatments. On 12/13/2017 patient seen again in follow-up on selective care unit. She is status post right-sided thoracentesis would removal of 1450 ML of pleural fluid. Pleural fluid analysis revealed transudate of pleural fluid, consistent with congestive heart failure. Today she is breathing easier, currently on 2 L per nasal cannula her pulse ox is 95%, patient is slightly hypotensive, blood pressures 83/50, with a mean of 61. Afebrile. Lung sounds reveal worse crackles over right base, crackles on the left, diminished breath sounds. We will obtain repeat chest x-ray, patient continues on IV diuretics, her weight is down by 2.3 kg in the last 24 hours. On 12/14/2017 patient seen in follow-up on selective care unit. She is sitting up in chair, she is in no acute distress, breathing much easier. Lung sounds are positive for some bibasilar crackles, good air entry noted bilaterally, she is currently on 2 L per nasal cannula pulse ox is 95%, she is afebrile, she was chest x-ray showed residual mild to moderate right pleural effusion, and decreasing small left pleural effusion. Adjacent atelectasis. Pleural fluid cytology was negative for any malignant cells. Cultures are negative. His lab work has been noted, the BBC 7.1, hemoglobin is 8.8, sodium is 135, potassium is 4.0, chloride is 95, CO2 33, BUN is 19, creatinine 0.68. Pleural fluid analysis was found to be transudate if, consistent with congestive heart failure. Objective - Vital Signs Vital signs: Vital Signs Temp 97.7 F 12/14/17 12:00 Pulse 79 12/14/17 12:01 Resp 16 12/14/17 12:00 BP 98/54 12/14/17 12:00 Pulse Ox 95 12/14/17 12:00 Intake & Output 12/13/17 12/14/17 12/14/17 18:59 06:59 18:59 Intake Total 140 222 Balance 140 222 Weight 51.8 kg Intake: Intake, IV Titration 140 Amount Sodium Chloride 0.9% 1, 140 000 ml @ 20 mls/hr IV . Q24H [facility] Rx#:[id number] Oral 222 Other: Voiding Method Toilet Diaper Diaper Diaper Incontinent Incontinent Incontinent # Voids 4 2 - Exam GENERAL EXAM: Alert, pleasant, 76-year-old white female, mildly short of breath with conversation, but in no apparent distress. 2 L per nasal cannula HEAD: Normocephalic/atraumatic. EYES: Normal reaction of pupils, equal size. Conjunctiva pink, sclera white. NOSE: Clear with pink turbinates. THROAT: No erythema or exudates. NECK: No masses, no JVD, no thyroid enlargement, no adenopathy. CHEST: No chest wall deformity. Symmetrical expansion. LUNGS: Coarse crackles on the right base, some limited crackles on the left CVS: Regular rate and rhythm, normal S1 and S2, no gallops, no murmurs, no rubs ABDOMEN: Soft, nontender. No hepatosplenomegaly, normal bowel sounds, no guarding or rigidity. EXTREMITIES: No clubbing, no cyanosis, 2+ pulses and upper and lower extremities. 1+ bilateral lower extremity edema MUSCULOSKELETAL: Muscle strength and tone normal. SPINE: No scoliosis or deformity SKIN: No rashes CENTRAL NERVOUS SYSTEM: Alert and oriented -3. No focal deficits, tone is normal in all 4 extremities. PSYCHIATRIC: Alert and oriented -3. Appropriate affect. Intact judgment and insight. - Labs CBC & Chem 7: 12/14/17 06:40 12/14/17 06:40 Labs: Abnormal Lab Results - Last 24 Hours (Table) 12/13/17 12/14/17 12/14/17 Range/Units 06:28 06:40 06:40 RBC 2.88 L (3.80-5.40) m/uL Hgb 8.8 L (11.4-16.0) gm/dL Hct 28.5 L (34.0-46.0) % Sodium 135 L (137-145) mmol/L Chloride 95 L (98-107) mmol/L Carbon Dioxide 33 H (22-30) mmol/L BUN 19 H (7-17) mg/dL Calcium 8.0 L (8.4-10.2) mg/dL Magnesium 1.3 L (1.6-2.3) mg/dL Microbiology - Last 24 Hours (Table) 12/12/17 14:30 Gram Stain - Preliminary Pleural Fluid Body Fluid Culture - Preliminary 12/12/17 14:30 Acid Fast Bacilli Smear - Final Pleural Fluid Acid Fast Bacilli Culture - Preliminary Assessment and Plan Plan: Assessment: #1. Acute hypoxic respiratory failure secondary to acute exacerbation of congestive heart failure, suspect systolic dysfunction #2. Large bilateral pleural effusions, that is post right-sided thoracentesis today on 12/12/2017 with removal of 1450 ML of pleural fluid, pleural fluid analysis revealed transudate of pleural fluid #3. Elevated troponins #4. Elevated d-dimer, CT angios negative for pulmonary embolism #5. Recent extended hospitalization in a [place] hospital for pneumonia #6. Suspect COPD #7. History of nicotine dependence, currently in remission, quit smoking 37 years ago, smoked for 30 years up to 3 packs a day. #8. Generalized weakness #9. Hypokalemia, hypomagnesemia Plan: Continue IV diuretics for now 24 hours, patient is breathing easier, continuing down FiO2, will fluid cytology is negative for malignancy, pleural fluid is transudative. Anticipate transitioning of the diuretics to oral diuretics starting tomorrow. We'll continue to follow I performed a history & physical examination of the patient and discussed their management with my nurse practitioner, Ignacia Fountain. I reviewed the nurse practitioner's note and agree with the documented findings and plan of care. Lung sounds are positive for diminished breath sounds, and crackles at the bases. The findings and the impression was discussed with the patient. I attest to the documentation by the nurse practitioner. Time with Patient: Less than 30
[2017-12-14] MEDS: FUROSEMIDE 10 MG/ML 10 ML VIAL IV SCH (18:12)
[2017-12-15] MEDS: FUROSEMIDE 10 MG/ML 10 ML VIAL IV SCH ×4 (01:09→23:08)
[2017-12-15] MEDS: PANTOPRAZOLE 40 MG TABLET PO SCH (06:30)
--- NOTE | 2017-12-15 08:11 | XR ---
EXAMINATION TYPE: XR chest 2V DATE OF EXAM: 12/15/2017 COMPARISON: Prior chest x-ray 12/13/2017 HISTORY: Congestive heart failure TECHNIQUE: Frontal and lateral views of the chest are obtained. FINDINGS: There are overlying cardiac leads. Heart size is stable. Bibasilar increased density persi sts. Interstitium is increased. Perihilar increased density also noted. No evident pneumothorax. Prom inent lung line compatible with underlying COPD. The aorta is dense. IMPRESSION: Findings compatible with congestive heart failure, there may be basilar edema, effusions , atelectasis, correlate to exclude pneumonia. Follow-up recommended.
[2017-12-15] MEDS: IPRATROPIUM-ALBUTEROL 3 ML NEB INHALATION SCH ×4 (08:12→21:11)
[2017-12-15] MEDS: SYMBICORT 160-4.5 MCG INHALER INHALATION SCH ×2 (08:12→21:11)
[2017-12-15] MEDS: SODIUM CHLORIDE 0.9% 1,000 ML IV SCH ×2 (09:20→19:50)
[2017-12-15] MEDS: POTASSIUM CHLORIDE ER 10 MEQ TAB.ER.PRT PO SCH (10:31)
[2017-12-15] MEDS: LISINOPRIL 5 MG TAB PO SCH (10:31)
[2017-12-15] MEDS: ENOXAPARIN 40 MG/0.4 ML SYRINGE SQ SCH (10:31)
[2017-12-15] MEDS: METOPROLOL SUCCINATE (ER) 50 MG TAB.ER.24H PO SCH (10:32)
--- NOTE | 2017-12-15 11:18 | P.PN ---
Subjective Progress Note Date: 12/15/17 This is a 76-year-old female who has known history of hypertension, hypothyroidism, anxiety, dementia, who resides in [place] and recently moved to [place]. Over the summer, patient apparently had an extended stay in the hospital there with pneumonia. She presents to the hospital on this occasion with symptoms of progressively worsening shortness of breath with associated cough and yellow sputum production. She was also noting some swelling in her bilateral lower extremities. Chest x-ray on arrival here revealed small bilateral pleural effusions. CAT scan of the chest did not reveal evidence of pulmonary embolism, large pleural effusions with basilar pulmonary atelectasis and infiltrate, mostly atelectasis, nonspecific mediastinal adenopathy noted. Ultrasound of the chest was performed which revealed bilateral pleural effusion , both sides were marked for possible thoracentesis. Repeat chest x-ray was performed this morning which continued to show bilateral pleural effusions and possible congestive heart failure, pneumonia not excluded. Her BNP level on admission was 4800. Patient was noted also to have mild abnormality in troponin , not consistent with acute coronary syndrome, likely secondary to supply and demand mismatch. At the time of my examination this morning, patient was quite ornary, she states that she is frustrated having to have so many chest x-rays and things done when she doesn't feel well. Patient had an echocardiogram with Doppler study performed this morning results are yet pending, but she states after the echo she became quite short of breath. 12/13/2017 Patient seen and examined this morning, she does state that her breathing has improved as compared with yesterday, she underwent a right-sided thoracentesis by Dr. Dueñas. Patient states she did have several episodes of diarrhea stools this morning. Echocardiogram with Doppler study was performed which revealed an ejection fraction of 55-60%. Blood pressure 100/50 with a heart rate in the 70s, 99% on 2 L of oxygen. She continues to be on 40 mg of IV Lasix every 8 hourly. Her weight is overall down 2 kg today. 12/14/2017 Patient seen and examined this morning, sitting up in the chair at bedside. Breathing is significantly improved. Blood pressure 124/70 with a heart rate in the 70s, 100% on room air. White blood cell count 7.1, hemoglobin 8.8, platelet count 373. Sodium 135, potassium 4.0, BUN 19, creatinine 0.6. 12/15/2017 Patient was seen and examined this morning, overall feels well. Does state that her breathing is significantly improved but still gets somewhat short of breath with minimal exertion. Repeat chest x-ray from this morning did show findings compatible with congestive heart failure. Blood pressure this morning 110/60 with a heart rate in the 80s, temperature 97.4 she is 96% on room air. White blood cell count 7.1, hemoglobin 8.8, platelet count 373. Sodium 135, potassium 4.0, BUN 19, creatinine 0.6. NEC and 2.2. Patient's blood pressure has been running in the mid-90s low 100s. We will decrease the dose of beta christian to 25 mg daily. Continue IV Lasix for 24 hours. Objective - Vital Signs Vital signs: Vital Signs Temp 97.4 F L 12/15/17 08:00 Pulse 74 12/15/17 08:23 Resp 16 12/15/17 08:00 BP 110/69 12/15/17 08:00 Pulse Ox 96 12/15/17 08:00 Intake & Output 12/14/17 12/15/17 12/15/17 18:59 06:59 18:59 Intake Total 462 60 360 Output Total 500 Balance -38 60 360 Weight 53.2 kg Intake: Intake, IV Titration 60 Amount Sodium Chloride 0.9% 1, 60 000 ml @ 20 mls/hr IV . Q24H [facility] Rx#:[id number] Oral 462 360 Output: Urine 500 Other: Voiding Method Diaper Diaper Diaper Incontinent Incontinent Incontinent # Voids 3 1 # Bowel Movements 1 - Exam GENERAL EXAM: Alert, pleasant, 76-year-old white female, mildly short of breath with conversation, but in no apparent distress. 4 L per nasal cannula HEAD: Normocephalic/atraumatic. EYES: Normal reaction of pupils, equal size. Conjunctiva pink, sclera white. NOSE: Clear with pink turbinates. THROAT: No erythema or exudates. NECK: No masses, no JVD, no thyroid enlargement, no adenopathy. CHEST: No chest wall deformity. Symmetrical expansion. LUNGS: Improvement in air entry to the bases CVS: Regular rate and rhythm, normal S1 and S2, no gallops, no murmurs, no rubs ABDOMEN: Soft, nontender. No hepatosplenomegaly, normal bowel sounds, no guarding or rigidity. EXTREMITIES: No clubbing, no cyanosis, 2+ pulses and upper and lower extremities. 1+ bilateral lower extremity edema MUSCULOSKELETAL: Muscle strength and tone normal. SPINE: No scoliosis or deformity SKIN: No rashes CENTRAL NERVOUS SYSTEM: Alert and oriented -3. No focal deficits, tone is normal in all 4 extremities. PSYCHIATRIC: Alert and oriented -3. Appropriate affect. Intact judgment and insight. - Labs CBC & Chem 7: 12/14/17 06:40 12/14/17 06:40 Labs: Microbiology - Last 24 Hours (Table) 12/12/17 14:30 Gram Stain - Preliminary Pleural Fluid Body Fluid Culture - Preliminary Assessment and Plan Plan: Assessment: #1. Acute hypoxic respiratory failure secondary to acute exacerbation of congestive heart failure, diastolic acute on chronic #2. Large bilateral pleural effusions, status post right sided thoracentesis #3. Elevated troponins, not consistent with acute coronary syndrome, likely secondary to supply and demand mismatch #4. Elevated d-dimer, CT angio negative for pulmonary embolism #5. Recent extended hospitalization in a [place] hospital for pneumonia #6. Suspect COPD with possible exacerbation #7. History of nicotine dependence, currently in remission, quit smoking 37 years ago, smoked for 30 years up to 3 packs a day. #8. Generalized weakness #9. Hypokalemia, hypomagnesemia Plan From cardiology's perspective, we will continue current dose of IV Lasix. Chest x-ray continues to show congestive heart failure. Blood pressure running in the mid-90s to low 100s, we will decrease dose of beta christian to 25 mg daily.. DNP note has been reviewed, I agree with a documented findings and plan of care. Patient was seen and examined.
--- NOTE | 2017-12-15 13:10 | P.PN ---
Subjective Progress Note Date: 12/15/17 Principal diagnosis: Acute respiratory failure secondary to acute exacerbation of congestive heart failure, large bilateral pleural effusions This is 76-year-old white female patient who resides in [place], and recently moved to [place] to be closer to her children. Patient had a extended hospital stay in [place] this summer, she states between the hospitalization and the rehab she was or a month and a half for pneumonia. Patient was complaining of ongoing shortness of breath, cough, yellowish sputum. She noted increasing swelling in her bilateral lower extremities. She presented to the hospital for further evaluation, chest x-ray showed small bilateral pleural effusions and 2017, her d-dimer was 1.7, CT angios was obtained which showed no PE, but showed large bilateral pleural effusions and adjacent atelectasis. Patient is hypoxemic, she is on liters per nasal cannula, with pulse ox of 93%, she is afebrile, she is short of breath at rest. She denies any prior history of congestive heart failure, he has never seen a lung specialist in the past. But she does have extensive past smoking history, she used to smoked up to 3 packs a day for 30 years, but she quit 37 years ago. Not wear oxygen. She doesn't have any inhalers of breathing treatments. No leukocytosis on the lab work, WBCs 9.1, hemoglobin is 9.5, sodium is 141, potassium is 3.4, Court is 104 CO2 is 32, renal profile is within normal limits. BNP was 4800, and 3 sets of troponins were 0.061, 0.063, and 0.073. EKG showed normal sinus rhythm, with evidence of the anterior infarct of undetermined age. We were asked to see the patient in evaluation of the large plural effusions bilaterally. On 12/12/2017 patient seen in follow-up on selective care unit. Patient has been diuresing, she is on Lasix 40 mg every 8 hours, that fluid balance is difficult to estimate as the patient is incontinent of urine. Her weight is down by 1.6 kg in the last 24 hours. She still has shortness of breath, today' s chest x-ray has been reviewed, and showed persistent bilateral plural effusions, without significant change compared to yesterday's exam. Ultrasound of the chest, revealed an 0.0 cm fluid pocket on the right, and 6.3 cm on the left. Patient is requesting right thoracentesis. This morning patient was noted to be hypotensive, and her morning dose of Lasix had to be held. Patient was seen and evaluated by Dr. Dueñas, she undergone right-sided thoracentesis with removal of 1450 ML of light-colored yellow pleural fluid. Doses and cytology as well as cultures. Tolerated procedure well, breathing easier, currently on 3 L per nasal cannula and her pulse ox is 97%, she remains in A. fib with a controlled rate. She is afebrile. Follow-up chest x-ray was obtained and showed no evident complications status post right thoracentesis, no pneumothorax. Continue IV diuretics, and rest the medical treatments. On 12/13/2017 patient seen again in follow-up on selective care unit. She is status post right-sided thoracentesis would removal of 1450 ML of pleural fluid. Pleural fluid analysis revealed transudate of pleural fluid, consistent with congestive heart failure. Today she is breathing easier, currently on 2 L per nasal cannula her pulse ox is 95%, patient is slightly hypotensive, blood pressures 83/50, with a mean of 61. Afebrile. Lung sounds reveal worse crackles over right base, crackles on the left, diminished breath sounds. We will obtain repeat chest x-ray, patient continues on IV diuretics, her weight is down by 2.3 kg in the last 24 hours. On 12/14/2017 patient seen in follow-up on selective care unit. She is sitting up in chair, she is in no acute distress, breathing much easier. Lung sounds are positive for some bibasilar crackles, good air entry noted bilaterally, she is currently on 2 L per nasal cannula pulse ox is 95%, she is afebrile, she was chest x-ray showed residual mild to moderate right pleural effusion, and decreasing small left pleural effusion. Adjacent atelectasis. Pleural fluid cytology was negative for any malignant cells. Cultures are negative. His lab work has been noted, the BBC 7.1, hemoglobin is 8.8, sodium is 135, potassium is 4.0, chloride is 95, CO2 33, BUN is 19, creatinine 0.68. Pleural fluid analysis was found to be transudate if, consistent with congestive heart failure. On 12/15/2017 patient seen in follow-up on selective care unit. She is wake and alert, resting comfortably in bed, currently on room air, her pulse ox is 97 %, she is afebrile, breathing has significantly improved, lung sounds are positive for some coarse crackles over right lower base. Very limited crackles on the left. Patient remains on IV diuretics at 60 mg every 8 hours, patient is diuresing, today's chest x-ray showed small bilateral effusions, increased interstitium, but overall improved from admission. Pleural fluid cytology was negative for any malignancy, it was transudate of consistent with congestive heart failure. Cultures are negative. Objective - Vital Signs Vital signs: Vital Signs Temp 97.4 F L 12/15/17 08:00 Pulse 84 12/15/17 11:53 Resp 16 12/15/17 11:53 BP 118/56 12/15/17 11:52 Pulse Ox 95 12/15/17 11:52 Intake & Output 12/14/17 12/15/17 12/15/17 18:59 06:59 18:59 Intake Total 462 60 360 Output Total 500 Balance -38 60 360 Weight 53.2 kg Intake: Intake, IV Titration 60 Amount Sodium Chloride 0.9% 1, 60 000 ml @ 20 mls/hr IV . Q24H [facility] Rx#:[id number] Oral 462 360 Output: Urine 500 Other: Voiding Method Diaper Diaper Diaper Incontinent Incontinent Incontinent # Voids 3 2 # Bowel Movements 1 - Exam GENERAL EXAM: Alert, pleasant, 76-year-old white female, mildly short of breath with conversation, but in no apparent distress. 2 L per nasal cannula HEAD: Normocephalic/atraumatic. EYES: Normal reaction of pupils, equal size. Conjunctiva pink, sclera white. NOSE: Clear with pink turbinates. THROAT: No erythema or exudates. NECK: No masses, no JVD, no thyroid enlargement, no adenopathy. CHEST: No chest wall deformity. Symmetrical expansion. LUNGS: Coarse crackles on the right base, some limited crackles on the left CVS: Regular rate and rhythm, normal S1 and S2, no gallops, no murmurs, no rubs ABDOMEN: Soft, nontender. No hepatosplenomegaly, normal bowel sounds, no guarding or rigidity. EXTREMITIES: No clubbing, no cyanosis, 2+ pulses and upper and lower extremities. 1+ bilateral lower extremity edema MUSCULOSKELETAL: Muscle strength and tone normal. SPINE: No scoliosis or deformity SKIN: No rashes CENTRAL NERVOUS SYSTEM: Alert and oriented -3. No focal deficits, tone is normal in all 4 extremities. PSYCHIATRIC: Alert and oriented -3. Appropriate affect. Intact judgment and insight. - Labs CBC & Chem 7: 12/14/17 06:40 12/14/17 06:40 Labs: Microbiology - Last 24 Hours (Table) 12/12/17 14:30 Gram Stain - Preliminary Pleural Fluid Body Fluid Culture - Preliminary Assessment and Plan Plan: Assessment: #1. Acute hypoxic respiratory failure secondary to acute exacerbation of congestive heart failure, suspect systolic dysfunction #2. Large bilateral pleural effusions, that is post right-sided thoracentesis today on 12/12/2017 with removal of 1450 ML of pleural fluid, pleural fluid analysis revealed transudate of pleural fluid, cytology negative #3. Elevated troponins #4. Elevated d-dimer, CT angios negative for pulmonary embolism #5. Recent extended hospitalization in a [place] hospital for pneumonia #6. Suspect COPD #7. History of nicotine dependence, currently in remission, quit smoking 37 years ago, smoked for 30 years up to 3 packs a day. #8. Generalized weakness #9. Hypokalemia, hypomagnesemia Plan: Today's chest x-ray has been reviewed, still shows small bilateral pleural effusions, and interstitial prominence, but overall much improved since admission. Clinically patient is breathing easier, she is on room air, no worsening shortness of breath. She continues on IV diuretics, consider transitioning to oral diuretics in another 24 hours, and possible discharge home tomorrow. I performed a history & physical examination of the patient and discussed their management with my nurse practitioner, Ignacia Fountain. I reviewed the nurse practitioner's note and agree with the documented findings and plan of care. Lung sounds are positive for diminished breath sounds, and crackles at the bases. The findings and the impression was discussed with the patient. I attest to the documentation by the nurse practitioner. Time with Patient: Less than 30
[2017-12-15 15:18] VITALS: BMI 22.8
--- NOTE | 2017-12-15 18:08 | P.PN ---
Subjective Progress Note Date: 12/15/17 Progress note being dictated for Dr. Amaya Interval history:Mrs. Foster is a 76-year-old female with a past medical history of hypertension, thyroid disorder, dementia coming to the hospital with a chief complaint of difficulty in breathing ongoing for 1-2 weeks. Patient was living in [place] and recently moved to [place] one week back. Patient is a poor historian so most of the history is obtained from her daughters were at the bedside. The patient was driven in a car last week from [place] to [place]. Patient was having difficulty in breathing and also increased swelling of her both lower extremities for the past 2 weeks. Patient was recently seen by Dr. High past week for the same complaints and she was started on Lasix and also azithromycin that she was taking. In spite of taking the medications the patient was still feeling short of breath and also stated the breathing treatments did not help her so came into the hospital for further evaluation. Patient denies having any fevers chills or rigors. She complains of cough with yellowish clear sputum. 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 Patient denies having any fevers chills or rigors. No abdominal pain nausea vomiting. Patient states the she has chronic diarrhea for the past 2 years. No complaints of dysuria or hematuria but states that she has urinary incontinence. Patient denies having any recent bleeding episodes. In the emergency department patient had a chest x-ray showing bilateral pleural effusion and as stated was elevated d-dimer she caught a CT and Lacey of the chest which was negative for PE but showed large bilateral pleural effusion with adjacent atelectasis. 12/12/17 Patient is seen and examined by me at bedside, both daughters were at bedside. They state patient has been recently discharged from [facility] for bilateral pneumonia, and VRE UTI. She went to rehab and then discharge home when she got worsening dyspnea and she presented to the hospital with CHF-like picture, mainly diastolic acute CHF. Associated with bilateral pleural effusion. Patient status post tapping of the right side today by the pulmonary team. After the procedure patient is not tachypneic or dyspneic however she has coughing without phlegm. Chest pain. No abdominal pain. No change in urine or bowel habits. No nausea vomiting or fever. Patient feels generally weak and she might benefit from PT/OT evaluation 12/13/2017 Patient's was sitting on the side of the mid token freely with no dyspnea. No chest pain with both are improving significantly. However she complains from 3 bouts of loose bowel movement yesterday and once today with no abdominal pain or nausea or vomiting. Patient is able and drink. We'll check for C. diff. Patient then looks controlled. She continued on IV Lasix high dose and she states she is diuresing lots pathology report for pleural fluid aspirate still pending for cytology culture and analysis 12/14/2017 sitting up in chair. pleural pathology reporting benign pleural effusion, pleural fluid cultures pending. Diuresing well on Lasix IV push with significant clinical improvement. Maintaining O2 sats in the high 90s on 2 L nasal cannula. 12/15/2017 maintained on IV Lasix , chest x-ray reporting small bilateral effusions, breathing stable, maintaining O2 sats in the high 90s on room air. Pleural fluid Cultures pending. Beta christian dose decreased as systolic blood pressures ranging 90s to 100s. Objective - Vital Signs Vital signs: Vital Signs Temp 97.5 F L 12/15/17 15:22 Pulse 87 12/15/17 15:24 Resp 16 12/15/17 15:24 BP 101/43 12/15/17 15:22 Pulse Ox 95 12/15/17 15:22 Intake & Output 12/14/17 12/15/17 12/15/17 18:59 06:59 18:59 Intake Total 462 60 360 Output Total 500 Balance -38 60 360 Weight 53.2 kg 53.2 kg Intake: Intake, IV Titration 60 Amount Sodium Chloride 0.9% 1, 60 000 ml @ 20 mls/hr IV . Q24H [facility] Rx#:[id number] Oral 462 360 Output: Urine 500 Other: Voiding Method Diaper Diaper Diaper Incontinent Incontinent Incontinent # Voids 3 2 # Bowel Movements 1 - Exam GENERAL: The patient is sitting up in chair, alert and oriented x3, no acute distress. HEENT: Pupils are round and equally reacting to light. EOMI. No scleral icterus. No conjunctival pallor. Normocephalic, atraumatic. No pharyngeal erythema. No thyromegaly. CARDIOVASCULAR: S1 and S2 present. No murmurs, rubs, or gallops. -PULMONARY: Chest is diminished with bibasilar crackles ABDOMEN: Soft, nontender, nondistended, normoactive bowel sounds. No palpable organomegaly. MUSCULOSKELETAL: No joint swelling or deformity. -EXTREMITIES: No cyanosis, clubbing, .bilateral 1+pedal edema. NEUROLOGICAL: Gross neurological examination did not reveal any focal deficits. SKIN: No rashes. MICROBIOLOGY 12/12/17 14:30 Pleural Fluid Gram Stain - Preliminary 12/12/17 14:30 Pleural Fluid Body Fluid Culture - Preliminary 12/12/17 14:30 Pleural Fluid Acid Fast Bacilli Smear - Final 12/12/17 14:30 Pleural Fluid Acid Fast Bacilli Culture - Preliminary 12/12/17 14:30 Pleural Fluid Fungal Culture - Preliminary - Labs CBC & Chem 7: 12/14/17 06:40 12/14/17 06:40 Labs: Microbiology - Last 24 Hours (Table) 12/12/17 14:30 Gram Stain - Preliminary Pleural Fluid Body Fluid Culture - Preliminary Assessment and Plan Assessment: Acute hypoxic respiratory failure secondary to Acute and chronic diastolic CHF Bilateral pleural effusion , secondary to CHF, status post right thoracocentesis , cytology negative. Elevated troponins, not consistent with acute coronary syndrome as per cardiology VRE infection recently in [place] Hypokalemia, improved Hypomagnesemia, improved Bilateral lower extremity edema Nicotine dependence quit 37 years back Plan: Continue on current medication regime ,monitoring and symptomatic treatment. Maintain IV Lasix with potential weaning to oral tomorrow. Pleural cultures pending. Aggressive pulmonary toileting. Discharge planning in progress for tomorrow to subacute rehab pending pulmonary and cardiology clearance. The impression and plan of care has been dictated as directed. : I performed a history and examination of this patient, discussed the same with the dictator. I agree with the dictator's note ,documented as a scribe. Any additional findings or plans will be noted.
[2017-12-16] MEDS: PANTOPRAZOLE 40 MG TABLET PO SCH (06:31)
[2017-12-16] MEDS: SYMBICORT 160-4.5 MCG INHALER INHALATION SCH ×2 (08:38→20:47)
[2017-12-16] MEDS: IPRATROPIUM-ALBUTEROL 3 ML NEB INHALATION SCH ×4 (08:38→20:47)
--- NOTE | 2017-12-16 08:41 | CDI ---
Last Revision, February 2017 Documentation Clarification Form Date: 12/16/2017 8:30:02 AM From: Nafisa DriscollSTEPHANIE, CCDS Admit Date: 12/11/2017 11:22:00 AM Patient Name: Maury Foster Visit Number: [id number] Discharge Date: ATTENTION: The Clinical Documentation Specialists (CDI) and [facility] Coding Staff appreciate your assistance in clarifying documentation. Please respond to the clarification below the line at the bottom and electronically sign. The CDI & [facility] Coding staff will review the response and follow-up if needed. Please note: Queries are made part of the Legal Health Record. If you have any questions, please contact the author of this message via ITS. Christina Mccarthy MD: There is conflicting documentation regarding the patient's diagnosis of congestive heart failure. Per the attending & the cardiology consult, this patient is diagnosed with "Acute on Chronic Diastolic Congestive Heart Failure" History/Risk Factors: COPD & CHF. History of pneumonia, dementia & alcohol withdrawal. Clinical Indicators: Presented with SOB. Admission VS: T 98.3, P 83, R 22 (cough, sob), BP 146/68, PO 92 2Lnc. BNP: 4800 Echocardiogram Results 12/12: Left ventricular systolic function is normal w/EF between 55-60% with moderate MR & TR, small, generalized pericardial effusion, large pleural effusion. Treatment: Albuterol INH, IV Ativan, IV MagSulf, IV Lasix, O2 2-3Lnc In your professional opinion, can you please clarify if you agree with the attending & senior wealth advisor? Acute on Chronic Diastolic Heart Failure: Acute on Chronic Systolic Heart Failure Combined Acute on Chronic Systolic & Diastolic Heart Failure Unable to Determine Other, please specify Acute on Chronic Diastolic Heart Failure: MTDD
[2017-12-16] MEDS: FUROSEMIDE 10 MG/ML 10 ML VIAL IV SCH ×3 (09:30→23:03)
[2017-12-16] MEDS: ENOXAPARIN 40 MG/0.4 ML SYRINGE SQ SCH (09:31)
[2017-12-16] MEDS: POTASSIUM CHLORIDE ER 10 MEQ TAB.ER.PRT PO SCH (09:31)
[2017-12-16] MEDS: METOPROLOL SUCCINATE (ER) 25 MG TAB.ER.24H PO SCH (09:31)
[2017-12-16] MEDS: LISINOPRIL 5 MG TAB PO SCH (09:31)
--- NOTE | 2017-12-16 12:01 | P.PN ---
Subjective Progress Note Date: 12/16/17 This is a 76-year-old female who has known history of hypertension, hypothyroidism, anxiety, dementia, who resides in [place] and recently moved to [place]. Over the summer, patient apparently had an extended stay in the hospital there with pneumonia. She presents to the hospital on this occasion with symptoms of progressively worsening shortness of breath with associated cough and yellow sputum production. She was also noting some swelling in her bilateral lower extremities. Chest x-ray on arrival here revealed small bilateral pleural effusions. CAT scan of the chest did not reveal evidence of pulmonary embolism, large pleural effusions with basilar pulmonary atelectasis and infiltrate, mostly atelectasis, nonspecific mediastinal adenopathy noted. Ultrasound of the chest was performed which revealed bilateral pleural effusion , both sides were marked for possible thoracentesis. Repeat chest x-ray was performed this morning which continued to show bilateral pleural effusions and possible congestive heart failure, pneumonia not excluded. Her BNP level on admission was 4800. Patient was noted also to have mild abnormality in troponin , not consistent with acute coronary syndrome, likely secondary to supply and demand mismatch. 12/16/2017 Upon examination, patient is sitting up in a chair. She feels her breathing is not much better. She overall is not feeling well today. She states that she woke at about 3 this morning with some significant shortness of breath. She continues on IV Lasix at this time. She has passing significant amounts of urine. Her weight is down almost 3 kg since yesterday. Vital signs are stable. Objective - Vital Signs Vital signs: Vital Signs Temp 97.0 F L 12/16/17 08:00 Pulse 76 12/16/17 11:45 Resp 16 12/16/17 08:00 BP 101/61 12/16/17 08:00 Pulse Ox 97 12/16/17 08:00 Intake & Output 12/15/17 12/16/17 12/16/17 18:59 06:59 18:59 Intake Total 1080 480 120 Output Total 502 Balance 1080 -22 120 Weight 53.2 kg 50.4 kg Intake: Oral 1080 480 120 Output: Urine 500 Urine/Stool Mix 2 Other: Voiding Method Diaper Diaper Diaper Incontinent Incontinent Incontinent # Voids 2 2 # Bowel Movements 1 1 - Exam PHYSICAL EXAMINATION: HEENT: Head is atraumatic, normocephalic. Pupils equal, round. Neck is supple. There is no elevated jugular venous pressure. HEART EXAMINATION: Heart sounds regular, S1 and S2 normal. No murmur or gallop heard. CHEST EXAMINATION: Lungs reveal diminished air entry to right lower lobe. No chest wall tenderness is noted on palpation or with deep breathing. ABDOMEN: Soft, nontender. Bowel sounds are heard. No organomegaly noted. EXTREMITIES: 2+ peripheral pulses with evidence of 1+ bilateral lower extremity peripheral edema and no calf tenderness noted. NEUROLOGIC patient is awake, alert and oriented x3. . - Labs CBC & Chem 7: 12/14/17 06:40 12/14/17 06:40 Labs: Microbiology - Last 24 Hours (Table) 12/12/17 14:30 Gram Stain - Preliminary Pleural Fluid Body Fluid Culture - Preliminary Assessment and Plan Assessment: #1 acute hypoxic respiratory failure secondary to congestive heart failure, diastolic, acute on chronic #2 large bilateral pleural effusions, status post right sided thoracentesis #3 elevated troponins, not consistent with acute coronary syndrome, likely secondary to supply demand mismatch #4 elevated d-dimer, CT angiogram negative for pulmonary embolism #5 recent hospitalization for pneumonia #6 suspected COPD with possible exacerbation Plan: From cardiology's perspective, we will obtain a repeat chest x-ray due to significant shortness of breath this morning as well as diminished lung sounds. Further recommendations to follow. The above dictated assessment and findings were discussed with signing physician. The impression and plan of care have been directed as dictated. Iman Saavedra, Nurse Practitioner, acting as scribe for signing physician.
--- NOTE | 2017-12-16 14:04 | XR ---
EXAMINATION TYPE: XR chest 2V DATE OF EXAM: 12/16/2017 COMPARISON: 12/15/2017 HISTORY: Shortness of breath. Progression of pneumonia. TECHNIQUE: Frontal and lateral views of the chest are obtained. FINDINGS: Similar-appearing small bilateral pleural effusions, right slightly greater than left, are again seen with associated bibasilar airspace disease. This most commonly relates to atelectasis. Re mainder the lungs are clear. Cardia mediastinal silhouette is partially obscured but stable. Mild mul tilevel degenerative changes of the thoracic spine are seen. IMPRESSION: Similar appearing bilateral small pleural effusions and bibasilar airspace disease, most commonly ass ociated compressive atelectasis.
--- NOTE | 2017-12-16 15:18 | P.PN ---
Subjective Progress Note Date: 12/16/17 Principal diagnosis: Acute respiratory failure secondary to acute exacerbation of congestive heart failure, large bilateral pleural effusions This is 76-year-old white female patient who resides in [place], and recently moved to [place] to be closer to her children. Patient had a extended hospital stay in [place] this summer, she states between the hospitalization and the rehab she was or a month and a half for pneumonia. Patient was complaining of ongoing shortness of breath, cough, yellowish sputum. She noted increasing swelling in her bilateral lower extremities. She presented to the hospital for further evaluation, chest x-ray showed small bilateral pleural effusions and 2017, her d-dimer was 1.7, CT angios was obtained which showed no PE, but showed large bilateral pleural effusions and adjacent atelectasis. Patient is hypoxemic, she is on liters per nasal cannula, with pulse ox of 93%, she is afebrile, she is short of breath at rest. She denies any prior history of congestive heart failure, he has never seen a lung specialist in the past. But she does have extensive past smoking history, she used to smoked up to 3 packs a day for 30 years, but she quit 37 years ago. Not wear oxygen. She doesn't have any inhalers of breathing treatments. No leukocytosis on the lab work, WBCs 9.1, hemoglobin is 9.5, sodium is 141, potassium is 3.4, Court is 104 CO2 is 32, renal profile is within normal limits. BNP was 4800, and 3 sets of troponins were 0.061, 0.063, and 0.073. EKG showed normal sinus rhythm, with evidence of the anterior infarct of undetermined age. We were asked to see the patient in evaluation of the large plural effusions bilaterally. On 12/12/2017 patient seen in follow-up on selective care unit. Patient has been diuresing, she is on Lasix 40 mg every 8 hours, that fluid balance is difficult to estimate as the patient is incontinent of urine. Her weight is down by 1.6 kg in the last 24 hours. She still has shortness of breath, today' s chest x-ray has been reviewed, and showed persistent bilateral plural effusions, without significant change compared to yesterday's exam. Ultrasound of the chest, revealed an 0.0 cm fluid pocket on the right, and 6.3 cm on the left. Patient is requesting right thoracentesis. This morning patient was noted to be hypotensive, and her morning dose of Lasix had to be held. Patient was seen and evaluated by Dr. Dueñas, she undergone right-sided thoracentesis with removal of 1450 ML of light-colored yellow pleural fluid. Doses and cytology as well as cultures. Tolerated procedure well, breathing easier, currently on 3 L per nasal cannula and her pulse ox is 97%, she remains in sinus rhythm with a controlled rate. She is afebrile. Follow-up chest x-ray was obtained and showed no evident complications status post right thoracentesis , no pneumothorax. Continue IV diuretics, and rest the medical treatments. On 12/13/2017 patient seen again in follow-up on selective care unit. She is status post right-sided thoracentesis would removal of 1450 ML of pleural fluid. Pleural fluid analysis revealed transudate of pleural fluid, consistent with congestive heart failure. Today she is breathing easier, currently on 2 L per nasal cannula her pulse ox is 95%, patient is slightly hypotensive, blood pressures 83/50, with a mean of 61. Afebrile. Lung sounds reveal worse crackles over right base, crackles on the left, diminished breath sounds. We will obtain repeat chest x-ray, patient continues on IV diuretics, her weight is down by 2.3 kg in the last 24 hours. On 12/14/2017 patient seen in follow-up on selective care unit. She is sitting up in chair, she is in no acute distress, breathing much easier. Lung sounds are positive for some bibasilar crackles, good air entry noted bilaterally, she is currently on 2 L per nasal cannula pulse ox is 95%, she is afebrile, she was chest x-ray showed residual mild to moderate right pleural effusion, and decreasing small left pleural effusion. Adjacent atelectasis. Pleural fluid cytology was negative for any malignant cells. Cultures are negative. His lab work has been noted, the BBC 7.1, hemoglobin is 8.8, sodium is 135, potassium is 4.0, chloride is 95, CO2 33, BUN is 19, creatinine 0.68. Pleural fluid analysis was found to be transudate if, consistent with congestive heart failure. On 12/15/2017 patient seen in follow-up on selective care unit. She is wake and alert, resting comfortably in bed, currently on room air, her pulse ox is 97 %, she is afebrile, breathing has significantly improved, lung sounds are positive for some coarse crackles over right lower base. Very limited crackles on the left. Patient remains on IV diuretics at 60 mg every 8 hours, patient is diuresing, today's chest x-ray showed small bilateral effusions, increased interstitium, but overall improved from admission. Pleural fluid cytology was negative for any malignancy, it was transudate of consistent with congestive heart failure. Cultures are negative. On December 16, 2017 patient seen in follow-up on selective care unit. Patient is in sinus rhythm, had no documented strips of atrial fibrillation, and the above-mentioned fibrillation was a typo. This morning patient had increased difficulty breathing, had a coughing spell, and was able to bring up some phlegm. No fever or chills, repeat chest x-ray was taken, showed bilateral small pleural effusions and bibasilar compressive atelectasis, not significantly changed from yesterday's exam. She continues to diurese. Remains on Lasix 60 mg every 8 hours. Nebulized bronchodilators. Today's labs were reviewed, no leukocytosis, WBC 7.1, hemoglobin is 8.8, sodium is 134, chloride is 95, CO2 33, renal profile is stable, with BUN of 19, creatinine 0.68. Pleural fluid culture cultures are negative Objective - Vital Signs Vital signs: Vital Signs Temp 97.0 F L 12/16/17 08:00 Pulse 83 12/16/17 12:00 Resp 16 12/16/17 12:00 BP 104/64 12/16/17 12:00 Pulse Ox 98 12/16/17 12:00 Intake & Output 12/15/17 12/16/17 12/16/17 18:59 06:59 18:59 Intake Total 1080 480 360 Output Total 502 Balance 1080 -22 360 Weight 53.2 kg 50.4 kg Intake: Oral 1080 480 360 Output: Urine 500 Urine/Stool Mix 2 Other: Voiding Method Diaper Diaper Diaper Incontinent Incontinent Incontinent # Voids 2 2 0 # Bowel Movements 1 1 - Exam GENERAL EXAM: Alert, pleasant, 76-year-old white female, mildly short of breath with conversation, but in no apparent distress. 2 L per nasal cannula HEAD: Normocephalic/atraumatic. EYES: Normal reaction of pupils, equal size. Conjunctiva pink, sclera white. NOSE: Clear with pink turbinates. THROAT: No erythema or exudates. NECK: No masses, no JVD, no thyroid enlargement, no adenopathy. CHEST: No chest wall deformity. Symmetrical expansion. LUNGS: Coarse crackles on the right base, some limited crackles on the left CVS: Regular rate and rhythm, normal S1 and S2, no gallops, no murmurs, no rubs ABDOMEN: Soft, nontender. No hepatosplenomegaly, normal bowel sounds, no guarding or rigidity. EXTREMITIES: No clubbing, no cyanosis, 2+ pulses and upper and lower extremities. 1+ bilateral lower extremity edema MUSCULOSKELETAL: Muscle strength and tone normal. SPINE: No scoliosis or deformity SKIN: No rashes CENTRAL NERVOUS SYSTEM: Alert and oriented -3. No focal deficits, tone is normal in all 4 extremities. PSYCHIATRIC: Alert and oriented -3. Appropriate affect. Intact judgment and insight. - Labs CBC & Chem 7: 12/14/17 06:40 12/14/17 06:40 Labs: Microbiology - Last 24 Hours (Table) 12/12/17 14:30 Gram Stain - Preliminary Pleural Fluid Body Fluid Culture - Preliminary Assessment and Plan Plan: Assessment: #1. Acute hypoxic respiratory failure secondary to acute exacerbation of congestive heart failure, suspect systolic dysfunction #2. Large bilateral pleural effusions, that is post right-sided thoracentesis today on 12/12/2017 with removal of 1450 ML of pleural fluid, pleural fluid analysis revealed transudate of pleural fluid, cytology negative #3. Elevated troponins #4. Elevated d-dimer, CT angios negative for pulmonary embolism #5. Recent extended hospitalization in a [place] hospital for pneumonia #6. Suspect COPD #7. History of nicotine dependence, currently in remission, quit smoking 37 years ago, smoked for 30 years up to 3 packs a day. #8. Generalized weakness #9. Hypokalemia, hypomagnesemia Plan: Today's chest x-ray has been reviewed, still shows small bilateral pleural effusions, and adjacent atelectasis. Patient had an episode of worsening shortness of breath. She continues on IV diuretics, consider transitioning to oral diuretics, provide patient with incentive spirometer, previous patient's activity. No fever or chills. I performed a history & physical examination of the patient and discussed their management with my nurse practitioner, Ignacia Fountain. I reviewed the nurse practitioner's note and agree with the documented findings and plan of care. Lung sounds are positive for diminished breath sounds, and crackles at the bases. The findings and the impression was discussed with the patient. I attest to the documentation by the nurse practitioner. Time with Patient: Less than 30
--- NOTE | 2017-12-16 18:09 | P.PN ---
Subjective Progress Note Date: 12/16/17 Progress note being dictated for Dr. Chan. Interval history:Mrs. Foster is a 76-year-old female with a past medical history of hypertension, thyroid disorder, dementia coming to the hospital with a chief complaint of difficulty in breathing ongoing for 1-2 weeks. Patient was living in [place] and recently moved to [place] one week back. Patient is a poor historian so most of the history is obtained from her daughters were at the bedside. The patient was driven in a car last week from [place] to [place]. Patient was having difficulty in breathing and also increased swelling of her both lower extremities for the past 2 weeks. Patient was recently seen by Dr. High past week for the same complaints and she was started on Lasix and also azithromycin that she was taking. In spite of taking the medications the patient was still feeling short of breath and also stated the breathing treatments did not help her so came into the hospital for further evaluation. Patient denies having any fevers chills or rigors. She complains of cough with yellowish clear sputum. 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 Patient denies having any fevers chills or rigors. No abdominal pain nausea vomiting. Patient states the she has chronic diarrhea for the past 2 years. No complaints of dysuria or hematuria but states that she has urinary incontinence. Patient denies having any recent bleeding episodes. In the emergency department patient had a chest x-ray showing bilateral pleural effusion and as stated was elevated d-dimer she caught a CT and [place] of the chest which was negative for PE but showed large bilateral pleural effusion with adjacent atelectasis. 12/12/17 Patient is seen and examined by me at bedside, both daughters were at bedside. They state patient has been recently discharged from [facility] for bilateral pneumonia, and VRE UTI. She went to rehab and then discharge home when she got worsening dyspnea and she presented to the hospital with CHF-like picture, mainly diastolic acute CHF. Associated with bilateral pleural effusion. Patient status post tapping of the right side today by the pulmonary team. After the procedure patient is not tachypneic or dyspneic however she has coughing without phlegm. Chest pain. No abdominal pain. No change in urine or bowel habits. No nausea vomiting or fever. Patient feels generally weak and she might benefit from PT/OT evaluation 12/13/2017 Patient's was sitting on the side of the mid token freely with no dyspnea. No chest pain with both are improving significantly. However she complains from 3 bouts of loose bowel movement yesterday and once today with no abdominal pain or nausea or vomiting. Patient is able and drink. We'll check for C. diff. Patient then looks controlled. She continued on IV Lasix high dose and she states she is diuresing lots pathology report for pleural fluid aspirate still pending for cytology culture and analysis 12/14/2017 sitting up in chair. pleural pathology reporting benign pleural effusion, pleural fluid cultures pending. Diuresing well on Lasix IV push with significant clinical improvement. Maintaining O2 sats in the high 90s on 2 L nasal cannula. 12/15/2017 maintained on IV Lasix , chest x-ray reporting small bilateral effusions, breathing stable, maintaining O2 sats in the high 90s on room air. Pleural fluid Cultures pending. Beta christian dose decreased as systolic blood pressures ranging 90s to 100s. 12/16/2017 in the [facility] supervisor hours patient developed increased shortness of breath accompanied by coughing- minimal sputum production. Chest x-ray obtained reporting bilateral small pleural effusions, bibasilar compressive atelectasis.afebrile, pleural cultures negative. maintained on nebulized bronchodilators. Diuresing well on Lasix IV push with 24-hour I&O reflecting decreased weight. Review of systems: CONSTITUTIONAL: No fever, positive fatigue, sleep interrupted by increased shortness of breath HEENT: No recent visual problems or hearing problems. Denied any sore throat. CARDIOVASCULAR: No chest pain, no palpitations, no syncope. PULMONARY:shortness of breath earlier this morning, cough with minimal sputum production GASTROINTESTINAL: No diarrhea, no nausea, no vomiting, no abdominal pain. Normoactive bowel sounds. NEUROLOGICAL: No headaches, generalized weakness, no numbness. HEMATOLOGICAL: Denies any bleeding or petechiae. GENITOURINARY: Denies any burning micturition; incontinence MUSCULOSKELETAL/RHEUMATOLOGICAL: Denies any joint pain, swelling, or any muscle pain. ENDOCRINE: Denies any polyuria or polydipsia. PSYCHIATRIC: No anxiety, no depression The rest of the 14 point review of systems is negative Active Medications Acetaminophen (Tylenol Tab) 650 mg PO Q6HR PRN PRN Reason: Fever and/ or Pain Last Admin: 12/13/17 22:21 Dose: 650 mg Hydrocodone Bitart/Acetaminophen ([place] 5-325) 1 each PO Q6HR PRN PRN Reason: Pain Last Admin: 12/13/17 09:15 Dose: 1 each Albuterol/Ipratropium (Duoneb 0.5 Mg-3 Mg/3 Ml Soln) 3 ml INHALATION RT-QID [facility] Last Admin: 12/16/17 15:57 Dose: 3 ml Budesonide/Formoterol Fumarate (Symbicort 160-4.5 Mcg Inhaler) 2 puff INHALATION RT-BID [facility] Last Admin: 12/16/17 08:38 Dose: 2 puff Enoxaparin Sodium (Lovenox) 40 mg SQ DAILY [facility] Last Admin: 12/16/17 09:31 Dose: 40 mg Furosemide (Lasix) 60 mg IV Q8HR [facility] Last Admin: 12/16/17 15:47 Dose: 60 mg Hydromorphone HCl (Dilaudid) 0.5 mg IVP Q6HR PRN PRN Reason: Pain Sodium Chloride (Saline 0.9%) 1,000 mls @ 20 mls/hr IV .Q24H [facility] Last Admin: 12/15/17 19:50 Dose: Not Given Lisinopril (Zestril) 5 mg PO DAILY [facility] Last Admin: 12/16/17 09:31 Dose: 5 mg Metoprolol Succinate (Toprol Xl) 25 mg PO DAILY [facility] Last Admin: 12/16/17 09:31 Dose: 25 mg Miscellaneous Information (Magnesium Per Protocol) 1 each MISCELLANE DAILY PRN ; Protocol PRN Reason: Per Protocol Nitroglycerin (Nitrostat) 0.4 mg SUBLINGUAL Q5M PRN PRN Reason: Chest Pain Pantoprazole Sodium (Protonix) 40 mg PO AC-BRKFST [facility] Last Admin: 12/16/17 06:31 Dose: 40 mg Potassium Chloride (K-Dur 10) 10 meq PO DAILY [facility] Last Admin: 12/16/17 09:31 Dose: 10 meq Objective - Vital Signs Vital signs: Vital Signs Temp 97.8 F 12/16/17 15:41 Pulse 72 12/16/17 16:04 Resp 16 12/16/17 16:00 BP 92/64 12/16/17 15:41 Pulse Ox 95 12/16/17 15:41 Intake & Output 12/15/17 12/16/17 12/16/17 18:59 06:59 18:59 Intake Total 1080 480 360 Output Total 502 Balance 1080 -22 360 Weight 53.2 kg 50.4 kg Intake: Oral 1080 480 360 Output: Urine 500 Urine/Stool Mix 2 Other: Voiding Method Diaper Diaper Diaper Incontinent Incontinent Incontinent # Voids 2 2 0 # Bowel Movements 1 1 - Exam GENERAL: The patient is sitting up in bed, alert and oriented x3, tired appearing HEENT: Pupils are round and equally reacting to light. EOMI. No scleral icterus. No conjunctival pallor. Normocephalic, atraumatic. CARDIOVASCULAR: S1 and S2 present. No murmurs, rubs, or gallops. -PULMONARY: Chest is diminished with bibasilar coarse crackles ABDOMEN: Soft, nontender, nondistended, normoactive bowel sounds. No palpable organomegaly. MUSCULOSKELETAL: No joint swelling or deformity. -EXTREMITIES: No cyanosis, clubbing, .bilateral 1+pedal edema. NEUROLOGICAL: Gross neurological examination did not reveal any focal deficits. SKIN: No rashes. Microbiology 12/12/17 14:30 Pleural Fluid Gram Stain - Final 12/12/17 14:30 Pleural Fluid Body Fluid Culture - Final 12/12/17 14:30 Pleural Fluid Acid Fast Bacilli Smear - Final 12/12/17 14:30 Pleural Fluid Acid Fast Bacilli Culture - Preliminary 12/12/17 14:30 Pleural Fluid Fungal Culture - Preliminary - Labs CBC & Chem 7: 12/14/17 06:40 12/14/17 06:40 Labs: Microbiology - Last 24 Hours (Table) 12/12/17 14:30 Gram Stain - Final Pleural Fluid Body Fluid Culture - Final Assessment and Plan Assessment: Acute hypoxic respiratory failure secondary to Acute and chronic diastolic CHF Bilateral pleural effusion , secondary to CHF, status post right thoracocentesis , cytology negative. Elevated troponins, not consistent with acute coronary syndrome as per cardiology VRE infection recently in [place] Hypokalemia, improved Hypomagnesemia, improved Bilateral lower extremity edema Nicotine dependence quit 37 years back Plan: Continue on current medication regime ,monitoring and symptomatic treatment. Continue IV Lasix with potential weaning to oral tomorrow. Close monitoring of renal function,electrolytes with repeat labs ordered for a.m. Aggressive pulmonary toileting, incentive spirometer reinforced. Increase activity as tolerated. Further recommendations to follow. The impression and plan of care has been dictated as directed. : I performed a history and examination of this patient, discussed the same with the dictator. I agree with the dictator's note ,documented as a scribe. Any additional findings or plans will be noted.
[2017-12-16] MEDS: SODIUM CHLORIDE 0.9% 1,000 ML IV SCH (19:32)
[2017-12-17] MEDS: PANTOPRAZOLE 40 MG TABLET PO SCH (06:17)
[2017-12-17 06:26] LABS: Basophils % (A) 0 %; Eosinophils # (A) 0.3 k/uL (0-0.7); Eosinophils % (A) 3 %; HCT 28.4 % (34.0-46.0); HGB 9.6 gm/dL (11.4-16.0); Lymphocytes # (A) 1.9 k/uL (1.0-4.8); Lymphocytes % (A) 23 %; MCH 31.4 pg (25.0-35.0); MCHC 33.8 g/dL (31.0-37.0); Monocytes # (A) 0.9 k/uL (0-1.0); Monocytes % (A) 11 %; Neutrophils # (A) 5.2 k/uL (1.3-7.7); Neutrophils % (A) 61 %; Platelet Count 557 k/uL (150-450); RBC 3.05 m/uL (3.80-5.40); RDW 14.9 % (11.5-15.5); WBC 8.4 k/uL (3.8-10.6)
[2017-12-17 06:47] LABS: Anion Gap 7 mmol/L; Blood Urea Nitrogen 20 mg/dL (7-17); Calcium 8.9 mg/dL (8.4-10.2); Carbon Dioxide 36 mmol/L (22-30); Chloride 90 mmol/L (98-107); Glucose 87 mg/dL (74-99); Potassium 4.1 mmol/L (3.5-5.1); Sodium 133 mmol/L (137-145)
[2017-12-17] MEDS: SYMBICORT 160-4.5 MCG INHALER INHALATION SCH ×2 (08:52→19:48)
[2017-12-17] MEDS: IPRATROPIUM-ALBUTEROL 3 ML NEB INHALATION SCH ×4 (08:52→19:48)
[2017-12-17] MEDS: FUROSEMIDE 10 MG/ML 10 ML VIAL IV SCH ×2 (09:45→15:58)
[2017-12-17] MEDS: ENOXAPARIN 40 MG/0.4 ML SYRINGE SQ SCH (09:46)
[2017-12-17] MEDS: POTASSIUM CHLORIDE ER 10 MEQ TAB.ER.PRT PO SCH (09:47)
[2017-12-17] MEDS: METOPROLOL SUCCINATE (ER) 25 MG TAB.ER.24H PO SCH (09:47)
--- NOTE | 2017-12-17 11:50 | P.PN ---
Subjective Progress Note Date: 12/17/17 This is a 76-year-old female who has known history of hypertension, hypothyroidism, anxiety, dementia, who resides in [place] and recently moved to [place]. Over the summer, patient apparently had an extended stay in the hospital there with pneumonia. She presents to the hospital on this occasion with symptoms of progressively worsening shortness of breath with associated cough and yellow sputum production. She was also noting some swelling in her bilateral lower extremities. Chest x-ray on arrival here revealed small bilateral pleural effusions. CAT scan of the chest did not reveal evidence of pulmonary embolism, large pleural effusions with basilar pulmonary atelectasis and infiltrate, mostly atelectasis, nonspecific mediastinal adenopathy noted. Ultrasound of the chest was performed which revealed bilateral pleural effusion , both sides were marked for possible thoracentesis. Repeat chest x-ray was performed this morning which continued to show bilateral pleural effusions and possible congestive heart failure, pneumonia not excluded. Her BNP level on admission was 4800. Patient was noted also to have mild abnormality in troponin , not consistent with acute coronary syndrome, likely secondary to supply and demand mismatch. At the time of my examination this morning, patient was quite ornary, she states that she is frustrated having to have so many chest x-rays and things done when she doesn't feel well. Patient had an echocardiogram with Doppler study performed this morning results are yet pending, but she states after the echo she became quite short of breath. 12/13/2017 Patient seen and examined this morning, she does state that her breathing has improved as compared with yesterday, she underwent a right-sided thoracentesis by Dr. Dueñas. Patient states she did have several episodes of diarrhea stools this morning. Echocardiogram with Doppler study was performed which revealed an ejection fraction of 55-60%. Blood pressure 100/50 with a heart rate in the 70s, 99% on 2 L of oxygen. She continues to be on 40 mg of IV Lasix every 8 hourly. Her weight is overall down 2 kg today. 12/14/2017 Patient seen and examined this morning, sitting up in the chair at bedside. Breathing is significantly improved. Blood pressure 124/70 with a heart rate in the 70s, 100% on room air. White blood cell count 7.1, hemoglobin 8.8, platelet count 373. Sodium 135, potassium 4.0, BUN 19, creatinine 0.6. 12/15/2017 Patient was seen and examined this morning, overall feels well. Does state that her breathing is significantly improved but still gets somewhat short of breath with minimal exertion. Repeat chest x-ray from this morning did show findings compatible with congestive heart failure. Blood pressure this morning 110/60 with a heart rate in the 80s, temperature 97.4 she is 96% on room air. White blood cell count 7.1, hemoglobin 8.8, platelet count 373. Sodium 135, potassium 4.0, BUN 19, creatinine 0.6. NEC and 2.2. Patient's blood pressure has been running in the mid-90s low 100s. We will decrease the dose of beta christian to 25 mg daily. Continue IV Lasix for 24 hours. 12/17/2017 Patient seen and examined this morning, does state that her breathing is improved significantly, she states that she's been urinating a significant amount through the night last night. Her dose of Lasix was increased yesterday to 60 mg IV every 8 hourly. Her weight is down 1 kg today. White blood cell count 8.4, hemoglobin 9.6, platelet count 557. Sodium 133, potassium 4.1, BUN 20, creatinine 0.6. Repeat chest x-ray performed yesterday showed similarly appearing bilateral small pleural effusions. Objective - Vital Signs Vital signs: Vital Signs Temp 97.1 F L 12/17/17 08:40 Pulse 84 12/17/17 09:04 Resp 16 12/17/17 08:40 BP 106/63 12/17/17 08:40 Pulse Ox 94 L 12/17/17 08:40 Intake & Output 12/16/17 12/17/17 12/17/17 18:59 06:59 18:59 Intake Total 360 360 270 Output Total 1000 Balance 360 -640 270 Weight 49.1 kg Intake: Oral 360 360 270 Output: Urine 1000 Other: Voiding Method Diaper Toilet Toilet Incontinent Diaper Diaper # Voids 0 2 1 # Bowel Movements 1 - Exam GENERAL EXAM: Alert, pleasant, 76-year-old white female, mildly short of breath with conversation, but in no apparent distress. 4 L per nasal cannula HEAD: Normocephalic/atraumatic. EYES: Normal reaction of pupils, equal size. Conjunctiva pink, sclera white. NOSE: Clear with pink turbinates. THROAT: No erythema or exudates. NECK: No masses, no JVD, no thyroid enlargement, no adenopathy. CHEST: No chest wall deformity. Symmetrical expansion. LUNGS: Improvement in air entry to the bases CVS: Regular rate and rhythm, normal S1 and S2, no gallops, no murmurs, no rubs ABDOMEN: Soft, nontender. No hepatosplenomegaly, normal bowel sounds, no guarding or rigidity. EXTREMITIES: No clubbing, no cyanosis, 2+ pulses and upper and lower extremities. 1+ bilateral lower extremity edema MUSCULOSKELETAL: Muscle strength and tone normal. SPINE: No scoliosis or deformity SKIN: No rashes CENTRAL NERVOUS SYSTEM: Alert and oriented -3. No focal deficits, tone is normal in all 4 extremities. PSYCHIATRIC: Alert and oriented -3. Appropriate affect. Intact judgment and insight. - Labs CBC & Chem 7: 12/17/17 05:40 12/17/17 05:40 Labs: Abnormal Lab Results - Last 24 Hours (Table) 12/17/17 12/17/17 Range/Units 05:40 05:40 RBC 3.05 L (3.80-5.40) m/uL Hgb 9.6 L (11.4-16.0) gm/dL Hct 28.4 L (34.0-46.0) % Plt Count 557 H (150-450) k/uL Sodium 133 L (137-145) mmol/L Chloride 90 L (98-107) mmol/L Carbon Dioxide 36 H (22-30) mmol/L BUN 20 H (7-17) mg/dL Microbiology - Last 24 Hours (Table) 12/12/17 14:30 Gram Stain - Final Pleural Fluid Body Fluid Culture - Final Assessment and Plan Plan: Assessment: #1. Acute hypoxic respiratory failure secondary to acute exacerbation of congestive heart failure, diastolic acute on chronic #2. Large bilateral pleural effusions, status post right sided thoracentesis #3. Elevated troponins, not consistent with acute coronary syndrome, likely secondary to supply and demand mismatch #4. Elevated d-dimer, CT angio negative for pulmonary embolism #5. Recent extended hospitalization in a [place] hospital for pneumonia #6. Suspect COPD with possible exacerbation #7. History of nicotine dependence, currently in remission, quit smoking 37 years ago, smoked for 30 years up to 3 packs a day. #8. Generalized weakness #9. Hypokalemia, hypomagnesemia Plan From cardiology's perspective, we will continue current dose of IV Lasix for 24 hours. Continue to monitor intake and output along with daily weights, daily lytes BUN and creatinine. DNP note has been reviewed, I agree with a documented findings and plan of care. Patient was seen and examined.
--- NOTE | 2017-12-17 14:20 | P.PN ---
Subjective Progress Note Date: 12/17/17 I'm dictating for Dr. Chan Interval history:Mrs. Foster is a 76-year-old female with a past medical history of hypertension, thyroid disorder, dementia coming to the hospital with a chief complaint of difficulty in breathing ongoing for 1-2 weeks. Patient was living in [place] and recently moved to [place] one week back. Patient is a poor historian so most of the history is obtained from her daughters were at the bedside. The patient was driven in a car last week from [place] to [place]. Patient was having difficulty in breathing and also increased swelling of her both lower extremities for the past 2 weeks. Patient was recently seen by Dr. High past week for the same complaints and she was started on Lasix and also azithromycin that she was taking. In spite of taking the medications the patient was still feeling short of breath and also stated the breathing treatments did not help her so came into the hospital for further evaluation. Patient denies having any fevers chills or rigors. She complains of cough with yellowish clear sputum. 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 Patient denies having any fevers chills or rigors. No abdominal pain nausea vomiting. Patient states the she has chronic diarrhea for the past 2 years. No complaints of dysuria or hematuria but states that she has urinary incontinence. Patient denies having any recent bleeding episodes. In the emergency department patient had a chest x-ray showing bilateral pleural effusion and as stated was elevated d-dimer she caught a CT and Lacey of the chest which was negative for PE but showed large bilateral pleural effusion with adjacent atelectasis. 12/12/17 Patient is seen and examined by me at bedside, both daughters were at bedside. They state patient has been recently discharged from [facility] for bilateral pneumonia, and VRE UTI. She went to rehab and then discharge home when she got worsening dyspnea and she presented to the hospital with CHF-like picture, mainly diastolic acute CHF. Associated with bilateral pleural effusion. Patient status post tapping of the right side today by the pulmonary team. After the procedure patient is not tachypneic or dyspneic however she has coughing without phlegm. Chest pain. No abdominal pain. No change in urine or bowel habits. No nausea vomiting or fever. Patient feels generally weak and she might benefit from PT/OT evaluation 12/13/2017 Patient's was sitting on the side of the mid token freely with no dyspnea. No chest pain with both are improving significantly. However she complains from 3 bouts of loose bowel movement yesterday and once today with no abdominal pain or nausea or vomiting. Patient is able and drink. We'll check for C. diff. Patient then looks controlled. She continued on IV Lasix high dose and she states she is diuresing lots pathology report for pleural fluid aspirate still pending for cytology culture and analysis 12/14/2017 sitting up in chair. pleural pathology reporting benign pleural effusion, pleural fluid cultures pending. Diuresing well on Lasix IV push with significant clinical improvement. Maintaining O2 sats in the high 90s on 2 L nasal cannula. 12/15/2017 maintained on IV Lasix , chest x-ray reporting small bilateral effusions, breathing stable, maintaining O2 sats in the high 90s on room air. Pleural fluid Cultures pending. Beta christian dose decreased as systolic blood pressures ranging 90s to 100s. 12/16/2017 in the nursing home admissions director hours patient developed increased shortness of breath accompanied by coughing- minimal sputum production. Chest x-ray obtained reporting bilateral small pleural effusions, bibasilar compressive atelectasis.afebrile, pleural cultures negative. maintained on nebulized bronchodilators. Diuresing well on Lasix IV push with 24-hour I&O reflecting decreased weight. 12/17/2017 Patient was seen and examined this morning along with a Dr. Chan. She was sitting up in chair. Family at bedside. She is feeling much better , and her breathing is improved status post thoracentesis from previous days. However she continued to feel weak and tired, looking for rehabilitation placement upon discharge. Review of systems: CONSTITUTIONAL: No fever, positive fatigue, sleep interrupted by increased shortness of breath HEENT: No recent visual problems or hearing problems. Denied any sore throat. CARDIOVASCULAR: No chest pain, no palpitations, no syncope. PULMONARY:shortness of breath earlier this morning, cough with minimal sputum production GASTROINTESTINAL: No diarrhea, no nausea, no vomiting, no abdominal pain. Normoactive bowel sounds. NEUROLOGICAL: No headaches, generalized weakness, no numbness. HEMATOLOGICAL: Denies any bleeding or petechiae. GENITOURINARY: Denies any burning micturition; incontinence MUSCULOSKELETAL/RHEUMATOLOGICAL: Denies any joint pain, swelling, or any muscle pain. ENDOCRINE: Denies any polyuria or polydipsia. PSYCHIATRIC: No anxiety, no depression The rest of the 14 point review of systems is negative Objective - Vital Signs Vital signs: Vital Signs Temp 97.1 F L 12/17/17 12:00 Pulse 84 12/17/17 13:35 Resp 16 12/17/17 12:00 BP 98/57 12/17/17 12:00 Pulse Ox 94 L 12/17/17 12:00 Intake & Output 12/16/17 12/17/17 12/17/17 18:59 06:59 18:59 Intake Total 360 360 270 Output Total 1000 Balance 360 -640 270 Weight 49.1 kg Intake: Oral 360 360 270 Output: Urine 1000 Other: Voiding Method Diaper Toilet Toilet Incontinent Diaper Diaper # Voids 0 2 1 # Bowel Movements 1 - Exam GENERAL: The patient is sitting up in bed, alert and oriented x3, tired appearing HEENT: Pupils are round and equally reacting to light. EOMI. No scleral icterus. No conjunctival pallor. Normocephalic, atraumatic. CARDIOVASCULAR: S1 and S2 present. No murmurs, rubs, or gallops. -PULMONARY: Chest is diminished with bibasilar coarse crackles ABDOMEN: Soft, nontender, nondistended, normoactive bowel sounds. No palpable organomegaly. MUSCULOSKELETAL: No joint swelling or deformity. -EXTREMITIES: No cyanosis, clubbing, .bilateral 1+pedal edema. NEUROLOGICAL: Gross neurological examination did not reveal any focal deficits. SKIN: No rashes Active Medications Acetaminophen (Tylenol Tab) 650 mg PO Q6HR PRN PRN Reason: Fever and/ or Pain Last Admin: 12/13/17 22:21 Dose: 650 mg Hydrocodone Bitart/Acetaminophen (Maunie 5-325) 1 each PO Q6HR PRN PRN Reason: Pain Last Admin: 12/13/17 09:15 Dose: 1 each Albuterol/Ipratropium (Duoneb 0.5 Mg-3 Mg/3 Ml Soln) 3 ml INHALATION RT-QID [facility] Last Admin: 12/17/17 13:25 Dose: 3 ml Budesonide/Formoterol Fumarate (Symbicort 160-4.5 Mcg Inhaler) 2 puff INHALATION RT-BID [facility] Last Admin: 12/17/17 08:52 Dose: 2 puff Enoxaparin Sodium (Lovenox) 40 mg SQ DAILY [facility] Last Admin: 12/17/17 09:46 Dose: 40 mg Furosemide (Lasix) 60 mg IV Q8HR [facility] Last Admin: 12/17/17 09:45 Dose: 60 mg Hydromorphone HCl (Dilaudid) 0.5 mg IVP Q6HR PRN PRN Reason: Pain Sodium Chloride (Saline 0.9%) 1,000 mls @ 20 mls/hr IV .Q24H [facility] Last Admin: 12/16/17 19:32 Dose: Not Given Lisinopril (Zestril) 5 mg PO DAILY [facility] Last Admin: 12/16/17 09:31 Dose: 5 mg Metoprolol Succinate (Toprol Xl) 25 mg PO DAILY [facility] Last Admin: 12/17/17 09:47 Dose: 25 mg Miscellaneous Information (Magnesium Per Protocol) 1 each MISCELLANE DAILY PRN ; Protocol PRN Reason: Per Protocol Nitroglycerin (Nitrostat) 0.4 mg SUBLINGUAL Q5M PRN PRN Reason: Chest Pain Pantoprazole Sodium (Protonix) 40 mg PO AC-BRKFST [facility] Last Admin: 12/17/17 06:17 Dose: 40 mg Potassium Chloride (K-Dur 10) 10 meq PO DAILY [facility] Last Admin: 12/17/17 09:47 Dose: 10 meq - Labs CBC & Chem 7: 12/17/17 05:40 12/17/17 05:40 Labs: Abnormal Lab Results - Last 24 Hours (Table) 12/17/17 12/17/17 Range/Units 05:40 05:40 RBC 3.05 L (3.80-5.40) m/uL Hgb 9.6 L (11.4-16.0) gm/dL Hct 28.4 L (34.0-46.0) % Plt Count 557 H (150-450) k/uL Sodium 133 L (137-145) mmol/L Chloride 90 L (98-107) mmol/L Carbon Dioxide 36 H (22-30) mmol/L BUN 20 H (7-17) mg/dL Microbiology - Last 24 Hours (Table) 12/12/17 14:30 Gram Stain - Final Pleural Fluid Body Fluid Culture - Final Assessment and Plan Assessment: Acute hypoxic respiratory failure secondary to Acute and chronic diastolic CHF Bilateral pleural effusion , secondary to CHF, status post right thoracocentesis , cytology negative. Elevated troponins, not consistent with acute coronary syndrome as per cardiology VRE infection recently in [place] Hypokalemia, improved Hypomagnesemia, improved Bilateral lower extremity edema Nicotine dependence quit 37 years back Plan: Continue on current medication regime ,monitoring and symptomatic treatment. Continue IV Lasix with potential weaning to oral tomorrow. Close monitoring of renal function,electrolytes with repeat labs ordered for a.m. Aggressive pulmonary toileting, incentive spirometer reinforced. Increase activity as tolerated. Further recommendations to follow. The impression and plan of care has been dictated as directed. : I performed a history and examination of this patient, discussed the same with the dictator. I agree with the dictator's note ,documented as a scribe. Any additional findings or plans will be noted.
--- NOTE | 2017-12-17 15:37 | P.PN ---
Subjective Progress Note Date: 12/17/17 Principal diagnosis: Acute respiratory failure secondary to an acute exacerbation of diastolic congestive heart failure and large bilateral pleural effusions. This is 76-year-old white female patient who resides in [place], and recently moved to [place] to be closer to her children. Patient had a extended hospital stay in [place] this summer, she states between the hospitalization and the rehab she was or a month and a half for pneumonia. Patient was complaining of ongoing shortness of breath, cough, yellowish sputum. She noted increasing swelling in her bilateral lower extremities. She presented to the hospital for further evaluation, chest x-ray showed small bilateral pleural effusions and 2017, her d-dimer was 1.7, CT angios was obtained which showed no PE, but showed large bilateral pleural effusions and adjacent atelectasis. Patient is hypoxemic, she is on liters per nasal cannula, with pulse ox of 93%, she is afebrile, she is short of breath at rest. She denies any prior history of congestive heart failure, he has never seen a lung specialist in the past. But she does have extensive past smoking history, she used to smoked up to 3 packs a day for 30 years, but she quit 37 years ago. Not wear oxygen. She doesn't have any inhalers of breathing treatments. No leukocytosis on the lab work, WBCs 9.1, hemoglobin is 9.5, sodium is 141, potassium is 3.4, Court is 104 CO2 is 32, renal profile is within normal limits. BNP was 4800, and 3 sets of troponins were 0.061, 0.063, and 0.073. EKG showed normal sinus rhythm, with evidence of the anterior infarct of undetermined age. We were asked to see the patient in evaluation of the large plural effusions bilaterally. On 12/12/2017 patient seen in follow-up on selective care unit. Patient has been diuresing, she is on Lasix 40 mg every 8 hours, that fluid balance is difficult to estimate as the patient is incontinent of urine. Her weight is down by 1.6 kg in the last 24 hours. She still has shortness of breath, today' s chest x-ray has been reviewed, and showed persistent bilateral plural effusions, without significant change compared to yesterday's exam. Ultrasound of the chest, revealed an 0.0 cm fluid pocket on the right, and 6.3 cm on the left. Patient is requesting right thoracentesis. This morning patient was noted to be hypotensive, and her morning dose of Lasix had to be held. Patient was seen and evaluated by Dr. Dueñas, she undergone right-sided thoracentesis with removal of 1450 ML of light-colored yellow pleural fluid. Doses and cytology as well as cultures. Tolerated procedure well, breathing easier, currently on 3 L per nasal cannula and her pulse ox is 97%, she remains in sinus rhythm with a controlled rate. She is afebrile. Follow-up chest x-ray was obtained and showed no evident complications status post right thoracentesis , no pneumothorax. Continue IV diuretics, and rest the medical treatments. On 12/13/2017 patient seen again in follow-up on selective care unit. She is status post right-sided thoracentesis would removal of 1450 ML of pleural fluid. Pleural fluid analysis revealed transudate of pleural fluid, consistent with congestive heart failure. Today she is breathing easier, currently on 2 L per nasal cannula her pulse ox is 95%, patient is slightly hypotensive, blood pressures 83/50, with a mean of 61. Afebrile. Lung sounds reveal worse crackles over right base, crackles on the left, diminished breath sounds. We will obtain repeat chest x-ray, patient continues on IV diuretics, her weight is down by 2.3 kg in the last 24 hours. On 12/14/2017 patient seen in follow-up on selective care unit. She is sitting up in chair, she is in no acute distress, breathing much easier. Lung sounds are positive for some bibasilar crackles, good air entry noted bilaterally, she is currently on 2 L per nasal cannula pulse ox is 95%, she is afebrile, she was chest x-ray showed residual mild to moderate right pleural effusion, and decreasing small left pleural effusion. Adjacent atelectasis. Pleural fluid cytology was negative for any malignant cells. Cultures are negative. His lab work has been noted, the BBC 7.1, hemoglobin is 8.8, sodium is 135, potassium is 4.0, chloride is 95, CO2 33, BUN is 19, creatinine 0.68. Pleural fluid analysis was found to be transudate if, consistent with congestive heart failure. On 12/15/2017 patient seen in follow-up on selective care unit. She is wake and alert, resting comfortably in bed, currently on room air, her pulse ox is 97 %, she is afebrile, breathing has significantly improved, lung sounds are positive for some coarse crackles over right lower base. Very limited crackles on the left. Patient remains on IV diuretics at 60 mg every 8 hours, patient is diuresing, today's chest x-ray showed small bilateral effusions, increased interstitium, but overall improved from admission. Pleural fluid cytology was negative for any malignancy, it was transudate of consistent with congestive heart failure. Cultures are negative. On December 16, 2017 patient seen in follow-up on selective care unit. Patient is in sinus rhythm, had no documented strips of atrial fibrillation, and the above-mentioned fibrillation was a typo. This morning patient had increased difficulty breathing, had a coughing spell, and was able to bring up some phlegm. No fever or chills, repeat chest x-ray was taken, showed bilateral small pleural effusions and bibasilar compressive atelectasis, not significantly changed from yesterday's exam. She continues to diurese. Remains on Lasix 60 mg every 8 hours. Nebulized bronchodilators. Today's labs were reviewed, no leukocytosis, WBC 7.1, hemoglobin is 8.8, sodium is 134, chloride is 95, CO2 33, renal profile is stable, with BUN of 19, creatinine 0.68. Pleural fluid culture cultures are negative The patient is seen again today 12/17/2017 in follow-up on the selective care unit. She is currently resting quite comfortably in bed. She is awake and alert in no acute distress. She denies any worsening shortness of breath, cough or congestion. She is maintaining O2 saturations in the 90s on room air now. Pleural fluid reveals no growth to date. Cytology negative for malignancy. White count 8.4. Hemoglobin 9.6. Creatinine 0.63. She remains on IV Lasix 60 mg every 8 hours. She is down another kilogram today. Objective - Vital Signs Vital signs: Vital Signs Temp 97.1 F L 12/17/17 12:00 Pulse 85 12/17/17 15:20 Resp 16 12/17/17 12:00 BP 98/57 12/17/17 12:00 Pulse Ox 94 L 12/17/17 12:00 Intake & Output 12/16/17 12/17/17 12/17/17 18:59 06:59 18:59 Intake Total 360 360 390 Output Total 1000 Balance 360 -640 390 Weight 49.1 kg Intake: Oral 360 360 390 Output: Urine 1000 Other: Voiding Method Diaper Toilet Toilet Incontinent Diaper Diaper # Voids 0 2 1 # Bowel Movements 1 - Exam - Exam GENERAL EXAM: Alert, pleasant female, no worsening shortness of breath. On room air. HEAD: Normocephalic/atraumatic. EYES: Normal reaction of pupils, equal size. Conjunctiva pink, sclera white. NOSE: Clear with pink turbinates. THROAT: No erythema or exudates. NECK: No masses, no JVD, no thyroid enlargement, no adenopathy. CHEST: No chest wall deformity. Symmetrical expansion. LUNGS: Coarse crackles on the right base, some limited crackles on the left CVS: Regular rate and rhythm, normal S1 and S2, no gallops, no murmurs, no rubs ABDOMEN: Soft, nontender. No hepatosplenomegaly, normal bowel sounds, no guarding or rigidity. EXTREMITIES: No clubbing, no cyanosis, 2+ pulses and upper and lower extremities. 1+ bilateral lower extremity edema MUSCULOSKELETAL: Muscle strength and tone normal. SPINE: No scoliosis or deformity SKIN: No rashes CENTRAL NERVOUS SYSTEM: Alert and oriented -3. No focal deficits, tone is normal in all 4 extremities. PSYCHIATRIC: Alert and oriented -3. Appropriate affect. Intact judgment and insight. - Labs CBC & Chem 7: 12/17/17 05:40 12/17/17 05:40 Labs: Abnormal Lab Results - Last 24 Hours (Table) 12/17/17 12/17/17 Range/Units 05:40 05:40 RBC 3.05 L (3.80-5.40) m/uL Hgb 9.6 L (11.4-16.0) gm/dL Hct 28.4 L (34.0-46.0) % Plt Count 557 H (150-450) k/uL Sodium 133 L (137-145) mmol/L Chloride 90 L (98-107) mmol/L Carbon Dioxide 36 H (22-30) mmol/L BUN 20 H (7-17) mg/dL Microbiology - Last 24 Hours (Table) 12/12/17 14:30 Gram Stain - Final Pleural Fluid Body Fluid Culture - Final Assessment and Plan Assessment: Assessment: #1. Acute hypoxic respiratory failure secondary to acute exacerbation of congestive heart failure, suspect systolic dysfunction #2. Large bilateral pleural effusions, that is post right-sided thoracentesis today on 12/12/2017 with removal of 1450 ML of pleural fluid, pleural fluid analysis revealed transudate of pleural fluid, cytology negative #3. Elevated troponins #4. Elevated d-dimer, CT angios negative for pulmonary embolism #5. Recent extended hospitalization in a [place] hospital for pneumonia #6. Suspect COPD #7. History of nicotine dependence, currently in remission, quit smoking 37 years ago, smoked for 30 years up to 3 packs a day. #8. Generalized weakness #9. Hypokalemia, hypomagnesemia Plan: The patient was seen and evaluated by Dr. Dueñas. She is improving daily. Currently on room air. No pulmonary complaints. She remains on IV diuretics. We will increase her activity as tolerated. We will continue to follow. I, the cosigning physician, performed a history & physical examination of the patient. Lungs sounds with faint crackles in the posterior bases. Maintaining good O2 saturations in the 90s on room air. I discussed the assessment and plan of care with my nurse practitioner, Zakia Greco. I attest to the above note as dictated by her.
[2017-12-17] MEDS: LISINOPRIL 5 MG TAB PO SCH (18:52)
[2017-12-17] MEDS: SODIUM CHLORIDE 0.9% 1,000 ML IV SCH (20:28)
[2017-12-17] MEDS ORDERED: LISINOPRIL 5 MG TAB PO SCH ×2 (21:00)
[2017-12-17] MEDS: HYDROcodone/APAP 5-325MG 1 EACH TAB PO PRN (23:30)
[2017-12-18] MEDS: FUROSEMIDE 10 MG/ML 10 ML VIAL IV SCH ×2 (00:36→09:15)
[2017-12-18] MEDS: PANTOPRAZOLE 40 MG TABLET PO SCH (06:24)
[2017-12-18 07:06] LABS: Basophils % (A) 0 %; Eosinophils # (A) 0.3 k/uL (0-0.7); Eosinophils % (A) 3 %; HGB 9.5 gm/dL (11.4-16.0); Hypochromasia Slight; Lymphocytes # (A) 2.4 k/uL (1.0-4.8); Lymphocytes % (A) 31 %; MCH 31.1 pg (25.0-35.0); MCHC 32.7 g/dL (31.0-37.0); MCV 95.1 fL (80.0-100.0); Mean Platelet Volume 8.4; Monocytes # (A) 0.7 k/uL (0-1.0); Monocytes % (A) 10 %; Neutrophils # (A) 4.2 k/uL (1.3-7.7); Neutrophils % (A) 54 %; Platelet Count 612 k/uL (150-450); RBC 3.05 m/uL (3.80-5.40); RDW 14.8 % (11.5-15.5); WBC 7.8 k/uL (3.8-10.6)
[2017-12-18 07:34] LABS: Anion Gap 6 mmol/L; Blood Urea Nitrogen 19 mg/dL (7-17); Carbon Dioxide 36 mmol/L (22-30); Chloride 92 mmol/L (98-107); Glucose 86 mg/dL (74-99); Potassium 4.5 mmol/L (3.5-5.1); Sodium 134 mmol/L (137-145)
[2017-12-18] MEDS: SYMBICORT 160-4.5 MCG INHALER INHALATION SCH ×2 (08:02→20:12)
[2017-12-18] MEDS: IPRATROPIUM-ALBUTEROL 3 ML NEB INHALATION SCH ×4 (08:02→20:12)
[2017-12-18] MEDS: ENOXAPARIN 40 MG/0.4 ML SYRINGE SQ SCH (09:16)
[2017-12-18] MEDS: POTASSIUM CHLORIDE ER 10 MEQ TAB.ER.PRT PO SCH (11:19)
[2017-12-18] MEDS: METOPROLOL SUCCINATE (ER) 25 MG TAB.ER.24H PO SCH (11:19)
--- NOTE | 2017-12-18 11:37 | P.PN ---
Subjective Progress Note Date: 12/18/17 Principal diagnosis: Acute respiratory failure secondary to acute exacerbation of congestive heart failure, large bilateral pleural effusions This is 76-year-old white female patient who resides in [place], and recently moved to [place] to be closer to her children. Patient had a extended hospital stay in [place] this summer, she states between the hospitalization and the rehab she was or a month and a half for pneumonia. Patient was complaining of ongoing shortness of breath, cough, yellowish sputum. She noted increasing swelling in her bilateral lower extremities. She presented to the hospital for further evaluation, chest x-ray showed small bilateral pleural effusions and 2017, her d-dimer was 1.7, CT angios was obtained which showed no PE, but showed large bilateral pleural effusions and adjacent atelectasis. Patient is hypoxemic, she is on liters per nasal cannula, with pulse ox of 93%, she is afebrile, she is short of breath at rest. She denies any prior history of congestive heart failure, he has never seen a lung specialist in the past. But she does have extensive past smoking history, she used to smoked up to 3 packs a day for 30 years, but she quit 37 years ago. Not wear oxygen. She doesn't have any inhalers of breathing treatments. No leukocytosis on the lab work, WBCs 9.1, hemoglobin is 9.5, sodium is 141, potassium is 3.4, Court is 104 CO2 is 32, renal profile is within normal limits. BNP was 4800, and 3 sets of troponins were 0.061, 0.063, and 0.073. EKG showed normal sinus rhythm, with evidence of the anterior infarct of undetermined age. We were asked to see the patient in evaluation of the large plural effusions bilaterally. On 12/12/2017 patient seen in follow-up on selective care unit. Patient has been diuresing, she is on Lasix 40 mg every 8 hours, that fluid balance is difficult to estimate as the patient is incontinent of urine. Her weight is down by 1.6 kg in the last 24 hours. She still has shortness of breath, today' s chest x-ray has been reviewed, and showed persistent bilateral plural effusions, without significant change compared to yesterday's exam. Ultrasound of the chest, revealed an 0.0 cm fluid pocket on the right, and 6.3 cm on the left. Patient is requesting right thoracentesis. This morning patient was noted to be hypotensive, and her morning dose of Lasix had to be held. Patient was seen and evaluated by Dr. Dueñas, she undergone right-sided thoracentesis with removal of 1450 ML of light-colored yellow pleural fluid. Doses and cytology as well as cultures. Tolerated procedure well, breathing easier, currently on 3 L per nasal cannula and her pulse ox is 97%, she remains in sinus rhythm with a controlled rate. She is afebrile. Follow-up chest x-ray was obtained and showed no evident complications status post right thoracentesis , no pneumothorax. Continue IV diuretics, and rest the medical treatments. On 12/13/2017 patient seen again in follow-up on selective care unit. She is status post right-sided thoracentesis would removal of 1450 ML of pleural fluid. Pleural fluid analysis revealed transudate of pleural fluid, consistent with congestive heart failure. Today she is breathing easier, currently on 2 L per nasal cannula her pulse ox is 95%, patient is slightly hypotensive, blood pressures 83/50, with a mean of 61. Afebrile. Lung sounds reveal worse crackles over right base, crackles on the left, diminished breath sounds. We will obtain repeat chest x-ray, patient continues on IV diuretics, her weight is down by 2.3 kg in the last 24 hours. On 12/14/2017 patient seen in follow-up on selective care unit. She is sitting up in chair, she is in no acute distress, breathing much easier. Lung sounds are positive for some bibasilar crackles, good air entry noted bilaterally, she is currently on 2 L per nasal cannula pulse ox is 95%, she is afebrile, she was chest x-ray showed residual mild to moderate right pleural effusion, and decreasing small left pleural effusion. Adjacent atelectasis. Pleural fluid cytology was negative for any malignant cells. Cultures are negative. His lab work has been noted, the BBC 7.1, hemoglobin is 8.8, sodium is 135, potassium is 4.0, chloride is 95, CO2 33, BUN is 19, creatinine 0.68. Pleural fluid analysis was found to be transudate if, consistent with congestive heart failure. On 12/15/2017 patient seen in follow-up on selective care unit. She is wake and alert, resting comfortably in bed, currently on room air, her pulse ox is 97 %, she is afebrile, breathing has significantly improved, lung sounds are positive for some coarse crackles over right lower base. Very limited crackles on the left. Patient remains on IV diuretics at 60 mg every 8 hours, patient is diuresing, today's chest x-ray showed small bilateral effusions, increased interstitium, but overall improved from admission. Pleural fluid cytology was negative for any malignancy, it was transudate of consistent with congestive heart failure. Cultures are negative. On December 16, 2017 patient seen in follow-up on selective care unit. Patient is in sinus rhythm, had no documented strips of atrial fibrillation, and the above-mentioned fibrillation was a typo. This morning patient had increased difficulty breathing, had a coughing spell, and was able to bring up some phlegm. No fever or chills, repeat chest x-ray was taken, showed bilateral small pleural effusions and bibasilar compressive atelectasis, not significantly changed from yesterday's exam. She continues to diurese. Remains on Lasix 60 mg every 8 hours. Nebulized bronchodilators. Today's labs were reviewed, no leukocytosis, WBC 7.1, hemoglobin is 8.8, sodium is 134, chloride is 95, CO2 33, renal profile is stable, with BUN of 19, creatinine 0.68. Pleural fluid culture cultures are negative On 12/18/2017 patient seen in follow-up. Resting comfortably in bed, currently on room air, her pulse ox is 95%, afebrile, hemodynamically stable. Continues to diurese, although her diuresis has slowed down, lung sounds are essentially clear to auscultation. At this point we'll could probably switch her to oral diuretics, and discharged pending to the [facility] subacute rehab facility sometime tomorrow. Objective - Vital Signs Vital signs: Vital Signs Temp 97 F L 12/18/17 11:06 Pulse 80 12/18/17 11:14 Resp 16 12/18/17 11:06 BP 111/43 12/18/17 11:14 Pulse Ox 95 12/18/17 11:06 Intake & Output 12/17/17 12/18/17 12/18/17 18:59 06:59 18:59 Intake Total 590 Output Total 500 Balance 590 -500 Weight 49.4 kg Intake: Oral 590 Output: Urine 500 Other: Voiding Method Toilet Toilet Toilet Diaper Diaper Diaper # Voids 1 3 1 # Bowel Movements 1 1 1 - Exam GENERAL EXAM: Alert, pleasant, 76-year-old white female, mildly short of breath with conversation, but in no apparent distress. On room air HEAD: Normocephalic/atraumatic. EYES: Normal reaction of pupils, equal size. Conjunctiva pink, sclera white. NOSE: Clear with pink turbinates. THROAT: No erythema or exudates. NECK: No masses, no JVD, no thyroid enlargement, no adenopathy. CHEST: No chest wall deformity. Symmetrical expansion. LUNGS: Lung sounds are essentially clear, no rales, no rhonchi no wheezes noted on today's exam, patient is on room air CVS: Regular rate and rhythm, normal S1 and S2, no gallops, no murmurs, no rubs ABDOMEN: Soft, nontender. No hepatosplenomegaly, normal bowel sounds, no guarding or rigidity. EXTREMITIES: No clubbing, no cyanosis, 2+ pulses and upper and lower extremities. 1+ bilateral lower extremity edema MUSCULOSKELETAL: Muscle strength and tone normal. SPINE: No scoliosis or deformity SKIN: No rashes CENTRAL NERVOUS SYSTEM: Alert and oriented -3. No focal deficits, tone is normal in all 4 extremities. PSYCHIATRIC: Alert and oriented -3. Appropriate affect. Intact judgment and insight. - Labs CBC & Chem 7: 12/18/17 06:24 12/18/17 06:24 Labs: Abnormal Lab Results - Last 24 Hours (Table) 12/18/17 12/18/17 Range/Units 06:24 06:24 RBC 3.05 L (3.80-5.40) m/uL Hgb 9.5 L (11.4-16.0) gm/dL Hct 29.0 L (34.0-46.0) % Plt Count 612 H (150-450) k/uL Sodium 134 L (137-145) mmol/L Chloride 92 L (98-107) mmol/L Carbon Dioxide 36 H (22-30) mmol/L BUN 19 H (7-17) mg/dL Assessment and Plan Plan: Assessment: #1. Acute hypoxic respiratory failure secondary to acute exacerbation of congestive heart failure, suspect systolic dysfunction #2. Large bilateral pleural effusions, that is post right-sided thoracentesis today on 12/12/2017 with removal of 1450 ML of pleural fluid, pleural fluid analysis revealed transudate of pleural fluid, cytology negative #3. Elevated troponins #4. Elevated d-dimer, CT angios negative for pulmonary embolism #5. Recent extended hospitalization in a [place] hospital for pneumonia #6. Suspect COPD #7. History of nicotine dependence, currently in remission, quit smoking 37 years ago, smoked for 30 years up to 3 packs a day. #8. Generalized weakness #9. Hypokalemia, hypomagnesemia Plan: We can switch the IV diuretics to oral at this point, patient's volume status has significantly improved, she is on room air, repeat chest x-ray in the morning, discharge is pending to subacute rehab tomorrow. I performed a history & physical examination of the patient and discussed their management with my nurse practitioner, Ignacia Fountain. I reviewed the nurse practitioner's note and agree with the documented findings and plan of care. Lung sounds are positive for diminished breath sounds, and crackles at the bases. The findings and the impression was discussed with the patient. I attest to the documentation by the nurse practitioner. Time with Patient: Less than 30
--- NOTE | 2017-12-18 13:23 | P.PN ---
Subjective Progress Note Date: 12/18/17 This is a 76-year-old female who has known history of hypertension, hypothyroidism, anxiety, dementia, who resides in [place] and recently moved to [place]. Over the summer, patient apparently had an extended stay in the hospital there with pneumonia. She presents to the hospital on this occasion with symptoms of progressively worsening shortness of breath with associated cough and yellow sputum production. She was also noting some swelling in her bilateral lower extremities. Chest x-ray on arrival here revealed small bilateral pleural effusions. CAT scan of the chest did not reveal evidence of pulmonary embolism, large pleural effusions with basilar pulmonary atelectasis and infiltrate, mostly atelectasis, nonspecific mediastinal adenopathy noted. Ultrasound of the chest was performed which revealed bilateral pleural effusion , both sides were marked for possible thoracentesis. Repeat chest x-ray was performed this morning which continued to show bilateral pleural effusions and possible congestive heart failure, pneumonia not excluded. Her BNP level on admission was 4800. Patient was noted also to have mild abnormality in troponin , not consistent with acute coronary syndrome, likely secondary to supply and demand mismatch. At the time of my examination this morning, patient was quite ornary, she states that she is frustrated having to have so many chest x-rays and things done when she doesn't feel well. Patient had an echocardiogram with Doppler study performed this morning results are yet pending, but she states after the echo she became quite short of breath. 12/13/2017 Patient seen and examined this morning, she does state that her breathing has improved as compared with yesterday, she underwent a right-sided thoracentesis by Dr. Dueñas. Patient states she did have several episodes of diarrhea stools this morning. Echocardiogram with Doppler study was performed which revealed an ejection fraction of 55-60%. Blood pressure 100/50 with a heart rate in the 70s, 99% on 2 L of oxygen. She continues to be on 40 mg of IV Lasix every 8 hourly. Her weight is overall down 2 kg today. 12/14/2017 Patient seen and examined this morning, sitting up in the chair at bedside. Breathing is significantly improved. Blood pressure 124/70 with a heart rate in the 70s, 100% on room air. White blood cell count 7.1, hemoglobin 8.8, platelet count 373. Sodium 135, potassium 4.0, BUN 19, creatinine 0.6. 12/15/2017 Patient was seen and examined this morning, overall feels well. Does state that her breathing is significantly improved but still gets somewhat short of breath with minimal exertion. Repeat chest x-ray from this morning did show findings compatible with congestive heart failure. Blood pressure this morning 110/60 with a heart rate in the 80s, temperature 97.4 she is 96% on room air. White blood cell count 7.1, hemoglobin 8.8, platelet count 373. Sodium 135, potassium 4.0, BUN 19, creatinine 0.6. NEC and 2.2. Patient's blood pressure has been running in the mid-90s low 100s. We will decrease the dose of beta christian to 25 mg daily. Continue IV Lasix for 24 hours. 12/17/2017 Patient seen and examined this morning, does state that her breathing is improved significantly, she states that she's been urinating a significant amount through the night last night. Her dose of Lasix was increased yesterday to 60 mg IV every 8 hourly. Her weight is down 1 kg today. White blood cell count 8.4, hemoglobin 9.6, platelet count 557. Sodium 133, potassium 4.1, BUN 20, creatinine 0.6. Repeat chest x-ray performed yesterday showed similarly appearing bilateral small pleural effusions. 12/18/2017. The patient is doing well this morning. She seen sitting up in a chair. She still continues to have 1+ lower extremity edema. Denies any chest discomfort. She has been up to the bathroom with minimal exertional dyspnea. Objective - Vital Signs Vital signs: Vital Signs Temp 97 F L 12/18/17 11:06 Pulse 76 12/18/17 12:56 Resp 18 12/18/17 12:56 BP 111/43 12/18/17 11:14 Pulse Ox 95 12/18/17 11:06 Intake & Output 12/17/17 12/18/17 12/18/17 18:59 06:59 18:59 Intake Total 590 240 Output Total 500 Balance 590 -500 240 Weight 49.4 kg Intake: Oral 590 240 Output: Urine 500 Other: Voiding Method Toilet Toilet Toilet Diaper Diaper Diaper # Voids 1 3 1 # Bowel Movements 1 1 1 - Exam GENERAL EXAM: Alert, pleasant, 76-year-old white female, mildly short of breath with conversation, but in no apparent distress. 4 L per nasal cannula NECK: No masses, no JVD, no thyroid enlargement, no adenopathy. CHEST: No chest wall deformity. Symmetrical expansion. Lungs sounds diminished posteriorly. CVS: Regular rate and rhythm, normal S1 and S2, no gallops, no murmurs, no rubs ABDOMEN: Soft, nontender. No hepatosplenomegaly, normal bowel sounds, no guarding or rigidity. EXTREMITIES: No clubbing, no cyanosis, 2+ pulses and upper and lower extremities. 1+ bilateral lower extremity edema PSYCHIATRIC: Alert and oriented -3. Appropriate affect. Intact judgment and insight. Short-term memory loss. - Labs CBC & Chem 7: 12/18/17 06:24 12/18/17 06:24 Labs: Abnormal Lab Results - Last 24 Hours (Table) 12/18/17 12/18/17 Range/Units 06:24 06:24 RBC 3.05 L (3.80-5.40) m/uL Hgb 9.5 L (11.4-16.0) gm/dL Hct 29.0 L (34.0-46.0) % Plt Count 612 H (150-450) k/uL Sodium 134 L (137-145) mmol/L Chloride 92 L (98-107) mmol/L Carbon Dioxide 36 H (22-30) mmol/L BUN 19 H (7-17) mg/dL Assessment and Plan Assessment: 1. Acute hypoxic respiratory failure secondary to acute exacerbation of congestive heart failure, diastolic acute on chronic 2. Large bilateral pleural effusions, status post right sided thoracentesis 3. Elevated troponins, not consistent with acute coronary syndrome, likely secondary to supply and demand mismatch 4. Elevated d-dimer, CT angio negative for pulmonary embolism 5. Recent extended hospitalization in a [place] hospital for pneumonia 6. Suspect COPD with possible exacerbation 7. History of nicotine dependence, currently in remission, quit smoking 37 years ago, smoked for 30 years up to 3 packs a day. 8. Generalized weakness 9. Hypokalemia, hypomagnesemia 10. History of hypertension. Plan: Continue with current dose of IV Lasix. Creatinine remains stable. Discontinue lisinopril and obtain chest x-ray this morning. Strict I&O and daily weights. The patient is complaining on being discharged to the [place] [facility] tomorrow. We will finalize her medications by that time. Until then, we will continue to follow her closely.
--- NOTE | 2017-12-18 14:09 | P.PN ---
Subjective Progress Note Date: 12/18/17 Principal diagnosis: Shortness of breath I'm dictating for Dr. Chan Interval history:Mrs. Foster is a 76-year-old female with a past medical history of hypertension, thyroid disorder, dementia coming to the hospital with a chief complaint of difficulty in breathing ongoing for 1-2 weeks. Patient was living in [place] and recently moved to [place] one week back. Patient is a poor historian so most of the history is obtained from her daughters were at the bedside. The patient was driven in a car last week from [place] to [place]. Patient was having difficulty in breathing and also increased swelling of her both lower extremities for the past 2 weeks. Patient was recently seen by Dr. High past week for the same complaints and she was started on Lasix and also azithromycin that she was taking. In spite of taking the medications the patient was still feeling short of breath and also stated the breathing treatments did not help her so came into the hospital for further evaluation. Patient denies having any fevers chills or rigors. She complains of cough with yellowish clear sputum. 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 Patient denies having any fevers chills or rigors. No abdominal pain nausea vomiting. Patient states the she has chronic diarrhea for the past 2 years. No complaints of dysuria or hematuria but states that she has urinary incontinence. Patient denies having any recent bleeding episodes. In the emergency department patient had a chest x-ray showing bilateral pleural effusion and as stated was elevated d-dimer she caught a CT and Lacey of the chest which was negative for PE but showed large bilateral pleural effusion with adjacent atelectasis. 12/12/17 Patient is seen and examined by me at bedside, both daughters were at bedside. They state patient has been recently discharged from [facility] for bilateral pneumonia, and VRE UTI. She went to rehab and then discharge home when she got worsening dyspnea and she presented to the hospital with CHF-like picture, mainly diastolic acute CHF. Associated with bilateral pleural effusion. Patient status post tapping of the right side today by the pulmonary team. After the procedure patient is not tachypneic or dyspneic however she has coughing without phlegm. Chest pain. No abdominal pain. No change in urine or bowel habits. No nausea vomiting or fever. Patient feels generally weak and she might benefit from PT/OT evaluation 12/13/2017 Patient's was sitting on the side of the mid token freely with no dyspnea. No chest pain with both are improving significantly. However she complains from 3 bouts of loose bowel movement yesterday and once today with no abdominal pain or nausea or vomiting. Patient is able and drink. We'll check for C. diff. Patient then looks controlled. She continued on IV Lasix high dose and she states she is diuresing lots pathology report for pleural fluid aspirate still pending for cytology culture and analysis 12/14/2017 sitting up in chair. pleural pathology reporting benign pleural effusion, pleural fluid cultures pending. Diuresing well on Lasix IV push with significant clinical improvement. Maintaining O2 sats in the high 90s on 2 L nasal cannula. 12/15/2017 maintained on IV Lasix , chest x-ray reporting small bilateral effusions, breathing stable, maintaining O2 sats in the high 90s on room air. Pleural fluid Cultures pending. Beta christian dose decreased as systolic blood pressures ranging 90s to 100s. 12/16/2017 in the shopper hours patient developed increased shortness of breath accompanied by coughing- minimal sputum production. Chest x-ray obtained reporting bilateral small pleural effusions, bibasilar compressive atelectasis.afebrile, pleural cultures negative. maintained on nebulized bronchodilators. Diuresing well on Lasix IV push with 24-hour I&O reflecting decreased weight. 12/17/2017 Patient was seen and examined this morning along with a Dr. Chan. She was sitting up in chair. Family at bedside. She is feeling much better , and her breathing is improved status post thoracentesis from previous days. However she continued to feel weak and tired, looking for rehabilitation placement upon discharge. 12/18/2017 Patient is seen and examined this morning. She was sitting up in chair. Her breathing is improved, she is using oxygen as needed basis. Patient was evaluated by physical therapy and occupational therapy and was recommended subacute rehabilitation upon discharge. Patient is debating placement once insurance approved for rehabilitation. Review of systems: CONSTITUTIONAL: No fever, positive fatigue, sleep interrupted by increased shortness of breath HEENT: No recent visual problems or hearing problems. Denied any sore throat. CARDIOVASCULAR: No chest pain, no palpitations, no syncope. PULMONARY:shortness of breath earlier this morning, cough with minimal sputum production GASTROINTESTINAL: No diarrhea, no nausea, no vomiting, no abdominal pain. Normoactive bowel sounds. NEUROLOGICAL: No headaches, generalized weakness, no numbness. HEMATOLOGICAL: Denies any bleeding or petechiae. GENITOURINARY: Denies any burning micturition; incontinence MUSCULOSKELETAL/RHEUMATOLOGICAL: Denies any joint pain, swelling, or any muscle pain. ENDOCRINE: Denies any polyuria or polydipsia. PSYCHIATRIC: No anxiety, no depression The rest of the 14 point review of systems is negative Objective - Vital Signs Vital signs: Vital Signs Temp 97 F L 12/18/17 11:06 Pulse 76 12/18/17 12:56 Resp 18 12/18/17 12:56 BP 111/43 12/18/17 11:14 Pulse Ox 95 12/18/17 11:06 Intake & Output 12/17/17 12/18/17 12/18/17 18:59 06:59 18:59 Intake Total 590 240 Output Total 500 Balance 590 -500 240 Weight 49.4 kg Intake: Oral 590 240 Output: Urine 500 Other: Voiding Method Toilet Toilet Toilet Diaper Diaper Diaper # Voids 1 3 1 # Bowel Movements 1 1 1 - Exam GENERAL: The patient is sitting up in bed, alert and oriented x3, tired appearing HEENT: Pupils are round and equally reacting to light. EOMI. No scleral icterus. No conjunctival pallor. Normocephalic, atraumatic. CARDIOVASCULAR: S1 and S2 present. No murmurs, rubs, or gallops. -PULMONARY: Chest is diminished with bibasilar coarse crackles ABDOMEN: Soft, nontender, nondistended, normoactive bowel sounds. No palpable organomegaly. MUSCULOSKELETAL: No joint swelling or deformity. -EXTREMITIES: No cyanosis, clubbing, .bilateral 1+pedal edema. NEUROLOGICAL: Gross neurological examination did not reveal any focal deficits. SKIN: No rashes Active Medications Acetaminophen (Tylenol Tab) 650 mg PO Q6HR PRN PRN Reason: Fever and/ or Pain Last Admin: 12/13/17 22:21 Dose: 650 mg Hydrocodone Bitart/Acetaminophen (Standard 5-325) 1 each PO Q6HR PRN PRN Reason: Pain Last Admin: 12/17/17 23:30 Dose: 1 each Albuterol/Ipratropium (Duoneb 0.5 Mg-3 Mg/3 Ml Soln) 3 ml INHALATION RT-QID [facility] Last Admin: 12/18/17 12:56 Dose: 3 ml Budesonide/Formoterol Fumarate (Symbicort 160-4.5 Mcg Inhaler) 2 puff INHALATION RT-BID [facility] Last Admin: 12/18/17 08:02 Dose: 2 puff Enoxaparin Sodium (Lovenox) 40 mg SQ DAILY [facility] Last Admin: 12/18/17 09:16 Dose: 40 mg Furosemide (Lasix) 40 mg PO BID@0900,1600 [facility] Hydromorphone HCl (Dilaudid) 0.5 mg IVP Q6HR PRN PRN Reason: Pain Sodium Chloride (Saline 0.9%) 1,000 mls @ 20 mls/hr IV .Q24H [facility] Last Admin: 12/17/17 20:28 Dose: Not Given Metoprolol Succinate (Toprol Xl) 25 mg PO DAILY [facility] Last Admin: 12/18/17 11:19 Dose: 25 mg Miscellaneous Information (Magnesium Per Protocol) 1 each MISCELLANE DAILY PRN ; Protocol PRN Reason: Per Protocol Nitroglycerin (Nitrostat) 0.4 mg SUBLINGUAL Q5M PRN PRN Reason: Chest Pain Pantoprazole Sodium (Protonix) 40 mg PO AC-BRKFST [facility] Last Admin: 12/18/17 06:24 Dose: 40 mg Potassium Chloride (K-Dur 10) 10 meq PO DAILY [facility] Last Admin: 12/18/17 11:19 Dose: 10 meq - Labs CBC & Chem 7: 12/18/17 06:24 12/18/17 06:24 Labs: Abnormal Lab Results - Last 24 Hours (Table) 12/18/17 12/18/17 Range/Units 06:24 06:24 RBC 3.05 L (3.80-5.40) m/uL Hgb 9.5 L (11.4-16.0) gm/dL Hct 29.0 L (34.0-46.0) % Plt Count 612 H (150-450) k/uL Sodium 134 L (137-145) mmol/L Chloride 92 L (98-107) mmol/L Carbon Dioxide 36 H (22-30) mmol/L BUN 19 H (7-17) mg/dL Assessment and Plan Assessment: Acute hypoxic respiratory failure secondary to Acute and chronic diastolic CHF Bilateral pleural effusion , secondary to CHF, status post right thoracocentesis , cytology negative. Elevated troponins, not consistent with acute coronary syndrome as per cardiology VRE infection recently in [place] Hypokalemia, improved Hypomagnesemia, improved Bilateral lower extremity edema Nicotine dependence quit 37 years back Plan: Continue on current medication regime ,monitoring and symptomatic treatment. Continue IV Lasix with potential weaning to oral tomorrow. Close monitoring of renal function,electrolytes with repeat labs ordered for a.m. Aggressive pulmonary toileting, incentive spirometer reinforced. Increase activity as tolerated. Patient is awaiting subacute rehab placement The impression and plan of care has been dictated as directed. : I performed a history and examination of this patient, discussed the same with the dictator. I agree with the dictator's note ,documented as a scribe. Any additional findings or plans will be noted.
[2017-12-18] MEDS: FUROSEMIDE 40 MG TAB PO SCH (15:28)
[2017-12-18] MEDS: HYDROcodone/APAP 5-325MG 1 EACH TAB PO PRN (19:48)
[2017-12-18] MEDS: SODIUM CHLORIDE 0.9% 1,000 ML IV SCH (23:10)
[2017-12-19] MEDS: IPRATROPIUM-ALBUTEROL 3 ML NEB INHALATION SCH ×4 (08:01→19:44)
--- NOTE | 2017-12-19 08:54 | XR ---
EXAMINATION TYPE: XR chest 2V DATE OF EXAM: 12/19/2017 COMPARISON: 12/16/2017 INDICATION: Follow-up CHF TECHNIQUE: Frontal and lateral views of the chest are obtained. FINDINGS: The heart size is normal. The pulmonary vasculature is normal. Small bilateral pleural effusions are again evident, these of diminished over the interval. Some reji cent compressive atelectasis is likely present. IMPRESSION: 1. Resolving small bilateral pleural effusions with some adjacent compressive atelectasis. Continued follow-up can be performed.
[2017-12-19] MEDS: FUROSEMIDE 40 MG TAB PO SCH ×2 (09:06→15:21)
[2017-12-19] MEDS: METOPROLOL SUCCINATE (ER) 25 MG TAB.ER.24H PO SCH (09:06)
[2017-12-19] MEDS: POTASSIUM CHLORIDE ER 10 MEQ TAB.ER.PRT PO SCH (09:06)
[2017-12-19] MEDS: ENOXAPARIN 40 MG/0.4 ML SYRINGE SQ SCH (09:06)
[2017-12-19] MEDS: PANTOPRAZOLE 40 MG TABLET PO SCH (09:06)
[2017-12-19] MEDS: HYDROcodone/APAP 5-325MG 1 EACH TAB PO PRN (09:06)
--- NOTE | 2017-12-19 09:58 | P.DS ---
Providers Date of admission: 12/11/17 11:22 Expected date of discharge: 12/19/17 Attending physician: Diamond Chan Consults: 12/10/17 23:58 Consult Physician Routine Consulting Provider: Sotero Khan Consult Reason/Comments: pleural effusion Do you want consulting provider notified?: Yes Consult Physician Urgent Consulting Provider: Vu Clement Consult Reason/Comments: elevTro Do you want consulting provider notified?: Yes Primary care physician: Lois High Hospital Course: Final Diagnoses: Acute hypoxic respiratory failure secondary to Acute and chronic diastolic CHF Bilateral pleural effusion , secondary to CHF, status post right thoracocentesis , cytology negative. Elevated troponins, not consistent with acute coronary syndrome as per cardiology VRE infection recently in [place] Hypokalemia, improved Hypomagnesemia, improved Bilateral lower extremity edema Nicotine dependence quit 37 years back Hospital course:Mrs. Foster is a 76-year-old female with a past medical history of hypertension, thyroid disorder, dementia coming to the hospital with a chief complaint of difficulty in breathing ongoing for 1-2 weeks. Patient was living in [place] and recently moved to [place] one week back. Patient is a poor historian so most of the history is obtained from her daughters were at the bedside. The patient was driven in a car last week from [place] to [place]. Patient was having difficulty in breathing and also increased swelling of her both lower extremities for the past 2 weeks. Patient was recently seen by Dr. High past week for the same complaints and she was started on Lasix and also azithromycin that she was taking. In spite of taking the medications the patient was still feeling short of breath and also stated the breathing treatments did not help her so came into the hospital for further evaluation. Patient denies having any fevers chills or rigors. She complains of cough with yellowish clear sputum. 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 Patient denies having any fevers chills or rigors. No abdominal pain nausea vomiting. Patient states the she has chronic diarrhea for the past 2 years. No complaints of dysuria or hematuria but states that she has urinary incontinence. Patient denies having any recent bleeding episodes. In the emergency department patient had a chest x-ray showing bilateral pleural effusion and as stated was elevated d-dimer she caught a CT and Lacey of the chest which was negative for PE but showed large bilateral pleural effusion with adjacent atelectasis. 12/12/17 Patient is seen and examined by me at bedside, both daughters were at bedside. They state patient has been recently discharged from [facility] for bilateral pneumonia, and VRE UTI. She went to rehab and then discharge home when she got worsening dyspnea and she presented to the hospital with CHF-like picture, mainly diastolic acute CHF. Associated with bilateral pleural effusion. Patient status post tapping of the right side today by the pulmonary team. After the procedure patient is not tachypneic or dyspneic however she has coughing without phlegm. Chest pain. No abdominal pain. No change in urine or bowel habits. No nausea vomiting or fever. Patient feels generally weak and she might benefit from PT/OT evaluation 12/13/2017 Patient's was sitting on the side of the mid token freely with no dyspnea. No chest pain with both are improving significantly. However she complains from 3 bouts of loose bowel movement yesterday and once today with no abdominal pain or nausea or vomiting. Patient is able and drink. We'll check for C. diff. Patient then looks controlled. She continued on IV Lasix high dose and she states she is diuresing lots pathology report for pleural fluid aspirate still pending for cytology culture and analysis 12/14/2017 sitting up in chair. pleural pathology reporting benign pleural effusion, pleural fluid cultures pending. Diuresing well on Lasix IV push with significant clinical improvement. Maintaining O2 sats in the high 90s on 2 L nasal cannula. 12/15/2017 maintained on IV Lasix , chest x-ray reporting small bilateral effusions, breathing stable, maintaining O2 sats in the high 90s on room air. Pleural fluid Cultures pending. Beta christian dose decreased as systolic blood pressures ranging 90s to 100s. 12/16/2017 in the sponge hooker hours patient developed increased shortness of breath accompanied by coughing- minimal sputum production. Chest x-ray obtained reporting bilateral small pleural effusions, bibasilar compressive atelectasis.afebrile, pleural cultures negative. maintained on nebulized bronchodilators. Diuresing well on Lasix IV push with 24-hour I&O reflecting decreased weight. IV push Lasix converted to oral. Significant clinical improvement. Patient is being discharged to subacute rehab pending pulmonary and cardiology clearance today, in a stable condition with guarded prognosis. - Exam GENERAL: The patient is sitting up in bed, alert and oriented x3 CARDIOVASCULAR: S1 and S2 present. No murmurs, rubs, or gallops. -PULMONARY: Chest is diminished with bibasilar coarse crackles ABDOMEN: Soft, nontender, nondistended, normoactive bowel sounds. No palpable organomegaly. NEUROLOGICAL: Gross neurological examination did not reveal any focal deficits. Microbiology 12/12/17 14:30 Pleural Fluid Gram Stain - Final 12/12/17 14:30 Pleural Fluid Body Fluid Culture - Final 12/12/17 14:30 Pleural Fluid Acid Fast Bacilli Smear - Final 12/12/17 14:30 Pleural Fluid Acid Fast Bacilli Culture - Preliminary 12/12/17 14:30 Pleural Fluid Fungal Culture - Preliminary Time taken: 35 minutes Patient Condition at Discharge: Stable Plan - Discharge Summary Discharge Rx Participant: No New Discharge Prescriptions: New Acetaminophen Tab [Tylenol] 650 mg PO Q6HR PRN tab PRN Reason: Fever And/ Or Pain Budesonide-Formot 160-4.5 Mcg [Symbicort 160-4.5 Mcg Inhaler] 2 puff INHALATION RT-BID puff Furosemide [Lasix] 40 mg PO BID@0900,1600 tab Metoprolol Succinate (ER) [Toprol XL] 25 mg PO DAILY tab.er.24h Continue Pantoprazole [Protonix] 40 mg PO DAILY Potassium Chloride [K-Tab ER] 10 meq PO DAILY Magnesium Oxide [Mag-Ox] 400 mg PO DAILY Levothyroxine Sodium [Synthroid] 88 mcg PO DAILY Fludrocortisone [Florinef] 0.1 mg PO DAILY Ipratropium-Albuterol Nebulize [Duoneb 0.5 mg-3 mg/3 ml Soln] 3 ml INHALATION RT-QID PRN #0 PRN Reason: Shortness Of Breath Discontinued Furosemide [Lasix] 20 mg PO DAILY Metoprolol Succinate [Toprol Xl] 50 mg PO DAILY Discharge Medication List Fludrocortisone [Florinef] 0.1 mg PO DAILY 12/11/17 [History] Levothyroxine Sodium [Synthroid] 88 mcg PO DAILY 12/11/17 [History] Magnesium Oxide [Mag-Ox] 400 mg PO DAILY 12/11/17 [History] Pantoprazole [Protonix] 40 mg PO DAILY 12/11/17 [History] Potassium Chloride [K-Tab ER] 10 meq PO DAILY 12/11/17 [History] Acetaminophen Tab [Tylenol] 650 mg PO Q6HR PRN tab 12/19/17 [Rx] Budesonide-Formot 160-4.5 Mcg [Symbicort 160-4.5 Mcg Inhaler] 2 puff INHALATION RT-BID puff 12/19/17 [Rx] Furosemide [Lasix] 40 mg PO BID@0900,1600 tab 12/19/17 [Rx] Ipratropium-Albuterol Nebulize [Duoneb 0.5 mg-3 mg/3 ml Soln] 3 ml INHALATION RT -QID PRN #0 12/19/17 [Rx] Metoprolol Succinate (ER) [Toprol XL] 25 mg PO DAILY tab.er.24h 12/19/17 [Rx] Follow up Appointment(s)/Referral(s): Candy DE LEON, PCP [Other] - 3 Days (while at [facility]) Lois High DO [Primary Care Provider] - 1 Week (Please follow up with primary care doctor 1 week after discharged from rehab.) Sotero Khan DO [Doctor of Osteopathic Medicine] - 01/06/18 2:15 pm Patient Instructions/Handouts: COPD (Chronic Obstructive Pulmonary Disease) (DC ), Pleural Effusion (DC), Chronic Lung Disease and Infection Prevention (DC), Thoracentesis (DC) Activity/Diet/Wound Care/Special Instructions: Pending pulmonary and cardiology clearance. Confirm cardiology follow-up appointment prior to discharge. Diet: Cardiac,CHF DIet CBC,BMP in 3 days. Activity: as tolerated Discharge Disposition: TRANSFER TO SNF/F
[2017-12-19] MEDS: LEVOTHYROXINE 88 MCG TAB PO SCH (10:50)
[2017-12-19] MEDS: FLUDROCORTISONE 0.1 MG TAB PO SCH (10:51)
[2017-12-19] MEDS: SYMBICORT 160-4.5 MCG INHALER INHALATION SCH ×2 (11:58→19:44)
[2017-12-19 12:56] LABS: Basophils % (A) 0 %; Eosinophils # (A) 0.3 k/uL (0-0.7); Eosinophils % (A) 3 %; HCT 31.7 % (34.0-46.0); Lymphocytes # (A) 2.7 k/uL (1.0-4.8); Lymphocytes % (A) 23 %; MCH 29.6 pg (25.0-35.0); MCHC 31.5 g/dL (31.0-37.0); MCV 94.1 fL (80.0-100.0); Mean Platelet Volume 8.6; Monocytes # (A) 0.8 k/uL (0-1.0); Monocytes % (A) 7 %; Neutrophils # (A) 7.4 k/uL (1.3-7.7); Neutrophils % (A) 65 %; Platelet Count 716 k/uL (150-450); RBC 3.37 m/uL (3.80-5.40); RDW 14.9 % (11.5-15.5); WBC 11.3 k/uL (3.8-10.6)
[2017-12-19 13:17] LABS: Anion Gap 9 mmol/L; Blood Urea Nitrogen 23 mg/dL (7-17); Calcium 9.4 mg/dL (8.4-10.2); Carbon Dioxide 31 mmol/L (22-30); Chloride 93 mmol/L (98-107); Glucose 110 mg/dL (74-99); Potassium 4.5 mmol/L (3.5-5.1); Sodium 133 mmol/L (137-145)
[2017-12-19 23:09] VITALS: RESP 17
[2017-12-20] MEDS: SODIUM CHLORIDE 0.9% 1,000 ML IV SCH (00:52)
[2017-12-20 06:01] VITALS: BP 119/54; TEMP 98.2
[2017-12-20] MEDS: LEVOTHYROXINE 88 MCG TAB PO SCH (06:17)
[2017-12-20] MEDS: FUROSEMIDE 40 MG TAB PO SCH (07:36)
[2017-12-20] MEDS: SYMBICORT 160-4.5 MCG INHALER INHALATION SCH (07:43)
[2017-12-20] MEDS: IPRATROPIUM-ALBUTEROL 3 ML NEB INHALATION SCH (07:43)
[2017-12-20 07:55] VITALS: PULSE 80
[2017-12-20] MEDS: ENOXAPARIN 40 MG/0.4 ML SYRINGE SQ SCH (08:09)
[2017-12-20] MEDS: PANTOPRAZOLE 40 MG TABLET PO SCH (08:09)
[2017-12-20] MEDS: POTASSIUM CHLORIDE ER 10 MEQ TAB.ER.PRT PO SCH ×2 (08:09→08:20)
[2017-12-20] MEDS: METOPROLOL SUCCINATE (ER) 25 MG TAB.ER.24H PO SCH (08:09)
[2017-12-20] MEDS: FLUDROCORTISONE 0.1 MG TAB PO SCH (08:10)
[2017-12-20] MEDS: ACETAMINOPHEN TAB 325 MG TAB PO PRN (08:14)
--- NOTE | 2017-12-20 19:05 | P.PN ---
Subjective Progress Note Date: 12/19/17 Progress note being dictated for Dr. Chan. Interval history:Mrs. Foster is a 76-year-old female with a past medical history of hypertension, thyroid disorder, dementia coming to the hospital with a chief complaint of difficulty in breathing ongoing for 1-2 weeks. Patient was living in [place] and recently moved to [place] one week back. Patient is a poor historian so most of the history is obtained from her daughters were at the bedside. The patient was driven in a car last week from [place] to [place]. Patient was having difficulty in breathing and also increased swelling of her both lower extremities for the past 2 weeks. Patient was recently seen by Dr. High past week for the same complaints and she was started on Lasix and also azithromycin that she was taking. In spite of taking the medications the patient was still feeling short of breath and also stated the breathing treatments did not help her so came into the hospital for further evaluation. Patient denies having any fevers chills or rigors. She complains of cough with yellowish clear sputum. 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 Patient denies having any fevers chills or rigors. No abdominal pain nausea vomiting. Patient states the she has chronic diarrhea for the past 2 years. No complaints of dysuria or hematuria but states that she has urinary incontinence. Patient denies having any recent bleeding episodes. In the emergency department patient had a chest x-ray showing bilateral pleural effusion and as stated was elevated d-dimer she caught a CT and [place]acey of the chest which was negative for PE but showed large bilateral pleural effusion with adjacent atelectasis. 12/12/17 Patient is seen and examined by me at bedside, both daughters were at bedside. They state patient has been recently discharged from [facility] for bilateral pneumonia, and VRE UTI. She went to rehab and then discharge home when she got worsening dyspnea and she presented to the hospital with CHF-like picture, mainly diastolic acute CHF. Associated with bilateral pleural effusion. Patient status post tapping of the right side today by the pulmonary team. After the procedure patient is not tachypneic or dyspneic however she has coughing without phlegm. Chest pain. No abdominal pain. No change in urine or bowel habits. No nausea vomiting or fever. Patient feels generally weak and she might benefit from PT/OT evaluation 12/13/2017 Patient's was sitting on the side of the mid token freely with no dyspnea. No chest pain with both are improving significantly. However she complains from 3 bouts of loose bowel movement yesterday and once today with no abdominal pain or nausea or vomiting. Patient is able and drink. We'll check for C. diff. Patient then looks controlled. She continued on IV Lasix high dose and she states she is diuresing lots pathology report for pleural fluid aspirate still pending for cytology culture and analysis 12/14/2017 sitting up in chair. pleural pathology reporting benign pleural effusion, pleural fluid cultures pending. Diuresing well on Lasix IV push with significant clinical improvement. Maintaining O2 sats in the high 90s on 2 L nasal cannula. 12/15/2017 maintained on IV Lasix , chest x-ray reporting small bilateral effusions, breathing stable, maintaining O2 sats in the high 90s on room air. Pleural fluid Cultures pending. Beta christian dose decreased as systolic blood pressures ranging 90s to 100s. 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 Chest x-ray obtained reporting bilateral small pleural effusions, bibasilar compressive atelectasis.afebrile, pleural cultures negative. maintained on nebulized bronchodilators. Diuresing well on Lasix IV push with 24-hour I&O reflecting decreased weight. Review of systems: CONSTITUTIONAL: No fever, positive fatigue, sleep interrupted by increased shortness of breath HEENT: No recent visual problems or hearing problems. Denied any sore throat. CARDIOVASCULAR: No chest pain, no palpitations, no syncope. PULMONARY:shortness of breath earlier this morning, cough with minimal sputum production GASTROINTESTINAL: No diarrhea, no nausea, no vomiting, no abdominal pain. Normoactive bowel sounds. NEUROLOGICAL: No headaches, generalized weakness, no numbness. HEMATOLOGICAL: Denies any bleeding or petechiae. GENITOURINARY: Denies any burning micturition; incontinence MUSCULOSKELETAL/RHEUMATOLOGICAL: Denies any joint pain, swelling, or any muscle pain. ENDOCRINE: Denies any polyuria or polydipsia. PSYCHIATRIC: No anxiety, no depression The rest of the 14 point review of systems is negative Active Medications Acetaminophen (Tylenol Tab) 650 mg PO Q6HR PRN PRN Reason: Fever and/ or Pain Last Admin: 12/13/17 22:21 Dose: 650 mg Hydrocodone Bitart/Acetaminophen ([place] 5-325) 1 each PO Q6HR PRN PRN Reason: Pain Last Admin: 12/13/17 09:15 Dose: 1 each Albuterol/Ipratropium (Duoneb 0.5 Mg-3 Mg/3 Ml Soln) 3 ml INHALATION RT-QID [facility] Last Admin: 12/16/17 15:57 Dose: 3 ml Budesonide/Formoterol Fumarate (Symbicort 160-4.5 Mcg Inhaler) 2 puff INHALATION RT-BID [facility] Last Admin: 12/16/17 08:38 Dose: 2 puff Enoxaparin Sodium (Lovenox) 40 mg SQ DAILY [facility] Last Admin: 12/16/17 09:31 Dose: 40 mg Furosemide (Lasix) 60 mg IV Q8HR [facility] Last Admin: 12/16/17 15:47 Dose: 60 mg Hydromorphone HCl (Dilaudid) 0.5 mg IVP Q6HR PRN PRN Reason: Pain Sodium Chloride (Saline 0.9%) 1,000 mls @ 20 mls/hr IV .Q24H [facility] Last Admin: 12/15/17 19:50 Dose: Not Given Lisinopril (Zestril) 5 mg PO DAILY [facility] Last Admin: 12/16/17 09:31 Dose: 5 mg Metoprolol Succinate (Toprol Xl) 25 mg PO DAILY [facility] Last Admin: 12/16/17 09:31 Dose: 25 mg Miscellaneous Information (Magnesium Per Protocol) 1 each MISCELLANE DAILY PRN ; Protocol PRN Reason: Per Protocol Nitroglycerin (Nitrostat) 0.4 mg SUBLINGUAL Q5M PRN PRN Reason: Chest Pain Pantoprazole Sodium (Protonix) 40 mg PO AC-BRKFST [facility] Last Admin: 12/16/17 06:31 Dose: 40 mg Potassium Chloride (K-Dur 10) 10 meq PO DAILY [facility] Last Admin: 12/16/17 09:31 Dose: 10 meq 12/19/2017 IV push converted to oral, significant clinical improvement. Denies chest pain, palpitations or increased shortness of breath. Objective - Vital Signs Vital signs: Vital Signs Temp 98.2 F 12/19/17 14:24 Pulse 81 12/19/17 16:32 Resp 16 12/19/17 16:32 BP 93/48 12/19/17 14:24 Pulse Ox 96 12/19/17 14:24 Intake & Output 12/18/17 12/19/17 12/19/17 18:59 06:59 18:59 Intake Total 440 440 800 Balance 440 440 800 Intake: Oral 440 440 800 Other: Voiding Method Toilet Diaper # Voids 1 3 2 # Bowel Movements 1 1 - Exam GENERAL: The patient is sitting up in bed, alert and oriented x3, no acute distress HEENT: Pupils are round and equally reacting to light. EOMI. No scleral icterus. No conjunctival pallor. Normocephalic, atraumatic. CARDIOVASCULAR: S1 and S2 present. No murmurs, rubs, or gallops. -PULMONARY: Chest is diminished with coarse bibasilar crackles ABDOMEN: Soft, nontender, nondistended, normoactive bowel sounds. No palpable organomegaly. MUSCULOSKELETAL: No joint swelling or deformity. -EXTREMITIES: No cyanosis, clubbing, .mild pedal edema. NEUROLOGICAL: Gross neurological examination did not reveal any focal deficits. SKIN: No rashes. Microbiology 12/12/17 14:30 Pleural Fluid Fungal Culture - Preliminary 12/12/17 14:30 Pleural Fluid Acid Fast Bacilli Smear - Final 12/12/17 14:30 Pleural Fluid Acid Fast Bacilli Culture - Preliminary 12/12/17 14:30 Pleural Fluid Gram Stain - Final 12/12/17 14:30 Pleural Fluid Body Fluid Culture - Final - Labs CBC & Chem 7: 12/19/17 12:15 12/19/17 12:15 Labs: Abnormal Lab Results - Last 24 Hours (Table) 12/19/17 12/19/17 Range/Units 12:15 12:15 WBC 11.3 H (3.8-10.6) k/uL RBC 3.37 L (3.80-5.40) m/uL Hgb 10.0 L (11.4-16.0) gm/dL Hct 31.7 L (34.0-46.0) % Plt Count 716 H (150-450) k/uL Sodium 133 L (137-145) mmol/L Chloride 93 L (98-107) mmol/L Carbon Dioxide 31 H (22-30) mmol/L BUN 23 H (7-17) mg/dL Glucose 110 H (74-99) mg/dL Assessment and Plan Assessment: Acute hypoxic respiratory failure secondary to Acute and chronic diastolic CHF Bilateral pleural effusion , secondary to CHF, status post right thoracocentesis , cytology negative. Elevated troponins, not consistent with acute coronary syndrome as per cardiology VRE infection recently in [place] Hypokalemia, improved Hypomagnesemia, improved Bilateral lower extremity edema Nicotine dependence quit 37 years back Plan: Continue on current medication regime ,monitoring and symptomatic treatment. Aggressive pulmonary toileting, incentive spirometer reinforced. Continue oral Lasix Close monitoring of renal function,electrolytes with repeat labs ordered for a.m. Increase activity as tolerated. Discharge planning in progress for subacute rehab .Further recommendations to follow. The impression and plan of care has been dictated as directed. : I performed a history and examination of this patient, discussed the same with the dictator. I agree with the dictator's note ,documented as a scribe. Any additional findings or plans will be noted.
== END 2017-12-20 11:11 | DRG 291 ==
LOC: EC 19:52 → 6SEL 12-11 → OBSVTOIN 12-11 11:22 → 6SEL 12-13 23:23 → 4MS4W 12-18 20:29
PROVIDERS: ADMIT Hospitalist; ATTEND Hospitalist
PROC: 0W993ZZ Drainage of Right Pleural Cavity, Percutaneous Approach (ICD-10-PCS; principal; 2017-12-12)
DX: I11.0 Hypertensive heart disease with heart failure (principal); J96.01 Acute respiratory failure with hypoxia; J98.11 Atelectasis; J90 Pleural effusion, not elsewhere classified; J44.1 Chronic obstructive pulmonary disease with (acute) exacerbation; E03.9 Hypothyroidism, unspecified; E78.5 Hyperlipidemia, unspecified; E83.42 Hypomagnesemia; E87.6 Hypokalemia; F03.90 Unspecified dementia, unspecified severity, without behavioral disturbance, psychotic disturbance, mood disturbance, and anxiety; F32.9 Major depressive disorder, single episode, unspecified; F41.9 Anxiety disorder, unspecified; I50.33 Acute on chronic diastolic (congestive) heart failure; I48.91 Unspecified atrial fibrillation; K52.9 Noninfective gastroenteritis and colitis, unspecified; R32 Unspecified urinary incontinence; R79.1 Abnormal coagulation profile; Z16.21 Resistance to vancomycin; Z87.11 Personal history of peptic ulcer disease; Z87.19 Personal history of other diseases of the digestive system; Z79.890 Hormone replacement therapy; Z87.891 Personal history of nicotine dependence; Z79.899 Other long term (current) drug therapy
CPT/HCPCS: 36415; 71045; 71046; 71275; 76604; 80048; 80053; 80061; 82550; 82553; 82945; 83615; 83735; 83880; 84155; 84157; 84484; 85025; 85379; 85610; 85730; 87045; 87046; 87070; 87102; 87116; 87205; 87206; 87324; 87328; 87329; 87425; 88108; 88305; 89050; 93005; 93306; 94640; 94760; 96361; 96365; 96366; 96368; 96375; 99291